=== PATIENT | female | born 1970 | race Caucasian/White ===

== ENCOUNTER 2016-07-18 15:07 | Inpatient (IN) ==
[2016-07-18] MEDS ORDERED: NS 1,000 ML IV SCH (16:45)
[2016-07-18] MEDS ORDERED: REGLAN IV SCH (16:45)
[2016-07-18 17:07] LABS: MANUAL DIFF NEEDED? NO
[2016-07-18 17:27] LABS: BASO% 0.2 % (0.0-0.8); EOS# 0.05 X1000 (0.0-0.7); EOS% 0.4 % (0.0-10.0); IMM GRAN# 0.02 X1000 (0.0-0.04); IMM GRAN% 0.2 % (0.0-0.5); LYMPH# 2.93 X1000 (1.2-3.4); LYMPH% 22.7 % (20.5-51.1); MCH 28.7 PG (27-31); MCV 84.4 FL (81-99); MONO# 0.84 X1000 (0.11-0.59); MONO% 6.5 % (1.7-9.3); MPV 10.3 FL (7.4-10.4); PLT 387 X1000 (130-400); RBC 5.57 XMIL (4.2-5.4)
[2016-07-18 17:29] LABS: INR 1.1; PROTIME 11.6 Seconds (9.2-11.7)
[2016-07-18 17:37] LABS: HEMOGLOBIN A1C 9.6 % (4.8-6.0)
[2016-07-18 17:38] LABS: AGAP 16; ALBUMIN 4.3 g/dL (3.5-5.0); ALKALINE PHOSPHATASE 48 U/L (32-104); BUN 9 mg/dL (8-22); CHLORIDE 94 mmol/L (98-107); CK PROFILE 94 U/L (24-173); COSMO 269; GOT 15 U/L (10-30); GPT 17 U/L (10-36); MAGNESIUM 1.8 mg/dL (1.5-2.7); POTASSIUM 3.2 mmol/L (3.5-5.1); SODIUM 134 mmol/L (136-145); TCO2 24 mmol/L (25-35); TOTAL PROTEIN 7.9 g/dL (6.3-8.3)
[2016-07-18] MEDS: SODIUM CHLORIDE 0.9% INJ PRN (18:03)
[2016-07-18] MEDS: PHENERGAN IV PRN (18:03)
[2016-07-18] MEDS: SODIUM CHLORIDE 0.9% INJ SCH (18:03)
[2016-07-18] MEDS: PROTONIX IV SCH (18:03)
[2016-07-18] MEDS ORDERED: MAGNESIUM SULFATE 2 GM/S.W.I. 2 GM/50 ML IVPB IV ONE (18:30)
[2016-07-18 18:58] LABS: INR 1.09; PROTIME 11.5 Seconds (9.2-11.7)
[2016-07-18] MEDS: MORPHINE IV PRN (19:04)
--- NOTE | 2016-07-18 21:08 | HISTORY AND PHYSICAL ---
CHIEF COMPLAINT: Intractable nausea, vomiting, abdominal discomfort. 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 Basically was taken to [place] 2 days ago with intractable nausea, vomiting, upper abdominal pain. Initially, she thought she is getting a heart attack. Patient was admitted at [facility] by hospitalist and subsequently CT of the abdomen and pelvis was told negative. She was treated with Compazine, IV fluids, sent home yesterday. She failed to improve, came to our clinic with intractable nausea, vomiting, and Phenergan did not help. She was admitted directly from my office for impending dehydration. She has a poor IV access. If the IV is not suitable next 24 hours , will consult a PICC line. She was dehydrated, hypokalemia. She was started on IV Phenergan and IV fluids. The patient needs to rule out gastroparesis. As a result, a hospital admission was warranted. PAST MEDICAL HISTORY: 1. CAD status post bypass. 2. Type 2 diabetes. 3. Diabetic neuropathy. 4. Hyperlipidemia. 5. Hypertension. 6. Sleep apnea. 7. Peripheral vascular disease. PAST SURGICAL HISTORY: Pacemaker/AICD. Tonsillectomy. Bypass with 4 stents. Cholecystectomy. Uvulopalatopharyngoplasty. Tubal ligation. MEDICATIONS: Insulin pump. Coreg 25 p.o. b.i.d. Pletal 50 once daily Cymbalta 60 daily. Gabapentin 300 daily. Lipitor 80 mg daily. Losartan 100 mg daily. [place] for p.r.n. pain. Plavix 75 daily. Aldactone 25 p.o. b.i.d. Demadex 20, 3 times daily. ALLERGIES: Penicillin. Reglan. SOCIAL HISTORY: , 1 child. Lives in [place]. No smoking. No alcohol disabled. FAMILY HISTORY: Father of car accident at 36. Mother is alive with diabetes, hypertension, stroke. HEALTH MAINTENANCE: Flu vaccine 2015, pneumococcal vaccine 2011, mammography , Pap smear and 2013. Colonoscopy not indicated. REVIEW OF SYSTEMS: HEENT: No headache. No dizziness. No earache. No sore throat. Neck: No goiter. No lymphadenopathy. No bruit. Cardiopulmonary: No chest pain, shortness of breath, PND, orthopnea. GI: Intractable nausea, vomiting, upper abdominal pain. No altered bowel habits. No bleeding per rectum. : No history of hesitancy, frequency. Claudication symptoms in both legs due to significant femoral artery stenosis and no signs of gangrene and nonhealing ulcer. Left great toe seen by Dr. Calderon. No suspicious finding for osteomyelitis. Neurologic: No focal symptoms or weakness. PHYSICAL EXAMINATION: VITAL SIGNS: Afebrile, stable. 5 feet 11, 271 pounds. HEENT: Atraumatic, normocephalic. Pupils equal, reactive to light. Dry mucous membranes. NECK: Supple. No lymphadenopathy. No goiter. CHEST: Bilateral air entry. No rales, no wheezing. HEART: Sounds are tachycardic. ABDOMEN: Belly is soft, obese, nontender. Good bowel sounds. No masses palpable. No signs of peritonitis. EXTREMITIES: Decreased pulses. Decreased sensory exam. No obvious focal deficits noted. INVESTIGATIONS: CBC: White cell count 12, hematocrit 47, platelets 387,000. PT 11, INR 1. SMA7: Sodium 134, potassium 3.2, chloride 94, anion gap is normal. Glucose 131. A1c 9.6. Cardiac enzymes are normal. ProBNP 1200. Amylase is normal. CT scan of the abdomen and pelvis is negative at recent [facility]. ASSESSMENT AND PLAN: A 45-year-old white female, admitted to the hospital with intractable nausea, vomiting. Etiology to be determined. Rule out gastroparesis. Check the urine for toxicology screen. Hypokalemia, replace the potassium. Type 2 diabetes on insulin pump. Follow up on sliding scale. Nothing per oral except ice chips. Intravenous access problem, will consult PICC line. Gastrointestinal prophylaxis with intravenous Protonix. Deep venous thrombosis prophylaxis with subcutaneous Lovenox. Once her situation improves, we will slowly initiate her home medications, and we will follow up on the clinical course. cc: Bryon Rodrigues MD MTDD
[2016-07-18] MEDS: NS + KCL 40 MEQ 1,000 ML IV SCH (23:28)
[2016-07-18 23:53] LABS: UR AMPHETAMINES QUAL NONE DETECTED (NONE DETECT); UR BARBITUATES QUAL NONE DETECTED (NONE DETECT); UR BENZODIAZEPIN QUAL NONE DETECTED (NONE DETECT); UR CANNABINOIDS QUAL PRESUMPTIVE POSITIVE (NONE DETECT); UR COCAINE QUAL NONE DETECTED (NONE DETECT); UR METHADONE QUAL NONE DETECTED (NONE DETECT); UR OPIATES QUAL PRESUMPTIVE POSITIVE (NONE DETECT); UR OXYCODONE QUAL NONE DETECTED (NONE DETECT); UR PCP QUAL NONE DETECTED (NONE DETECT)
[2016-07-19] MEDS: MORPHINE IV PRN ×4 (00:23→20:07)
[2016-07-19] MEDS: PHENERGAN IV PRN ×3 (00:23→18:11)
[2016-07-19 07:30] LABS: MANUAL DIFF NEEDED? NO
[2016-07-19 07:40] LABS: BASO% 0.4 % (0.0-0.8); EOS# 0.14 X1000 (0.0-0.7); EOS% 1.2 % (0.0-10.0); HEMATOCRIT 42.8 % (37.0-47.0); HEMOGLOBIN 14.6 g/dL (12.0-16.0); IMM GRAN# 0.03 X1000 (0.0-0.04); IMM GRAN% 0.3 % (0.0-0.5); LYMPH# 3.25 X1000 (1.2-3.4); LYMPH% 27.7 % (20.5-51.1); MCH 29.7 PG (27-31); MCHC 34.1 g/dL (33-37); MONO# 0.95 X1000 (0.11-0.59); MONO% 8.1 % (1.7-9.3); MPV 10.4 FL (7.4-10.4); NEUT% 62.3 % (42.2-75.2); PLT 323 X1000 (130-400); RBC 4.92 XMIL (4.2-5.4)
[2016-07-19 08:11] LABS: AGAP 15; BUN 10 mg/dL (8-22); CALCIUM 8.8 mg/dL (8.8-10.2); CHLORIDE 99 mmol/L (98-107); CK PROFILE 71 U/L (24-173); COSMO 277; POTASSIUM 3.5 mmol/L (3.5-5.1); SODIUM 137 mmol/L (136-145); TCO2 23 mmol/L (25-35)
[2016-07-19 08:56] LABS: SED RATE 15 mm/hr (0-20)
--- NOTE | 2016-07-19 09:10 | PROGRESS NOTE ---
DATE: 07/19/2016 SUBJECTIVE: The patient still has upper abdominal pain, nausea, vomiting. Reviewed the reports from [place] at [facility]. The patient is going for gastric a emptying study. REVIEW OF SYSTEMS: None reported. No chest pain, shortness of breath. No swelling of legs. PHYSICAL EXAMINATION: Afebrile. Heart rate is 82. Blood pressure is 132/78, pulse oximetry 99% on room air. HEENT: Atraumatic, normocephalic. Pupils equal, react to light. Neck is supple. No lymphadenopathy. Chest is clear to auscultation. Heart sounds are regular. Belly is soft, obese. No signs of peritonitis. Extremities: No edema noted. INVESTIGATIONS: White cell count 11, hematocrit 42, platelets 303,000. SMA-7: Sodium 137, potassium 3.5, chloride 99. BUN is 10. Creatinine 0.8. Glucose 178. Magnesium 1.8. Calcium 8.8. Cardiac enzymes were normal. TSH is normal. Urine tox screen is positive for THC marijuana. Gastric emptying studies are pending. ASSESSMENT AND PLAN: 1. Intractable nausea, vomiting, rule out gastroparesis. Follow up on gastric emptying study. 2. Impending dehydration. IV fluids with potassium. 3. Gastrointestinal prophylaxis with IV Protonix. 4. Deep venous thrombosis prophylaxis with Lovenox. 5. History of marijuana in the urine toxic. 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 6. Type 2 diabetes, brittle, on insulin pump. Follow up on sliding scale with insulin coverage. We will slowly initiate clear liquid diet and reconcile home medicines and followup. cc: Bryon Rodrigues MD MTDD
[2016-07-19] MEDS ORDERED: NS 250 ML ONE (09:21)
[2016-07-19] MEDS: HUMULIN R SUBQ SCH ×5 (09:29→23:00)
--- NOTE | 2016-07-19 10:46 | Diag Imaging Result Document ---
PROCEDURE NAME: GASTRIC EMPTYING - 07/18/2016 NUCLEAR MEDICINE GASTRIC EMPTYING EXAM: PROCEDURE: 594 microcuries of Tc99m sulfur colloid ingested with oatmeal. Imaging for 2 hours performed. There is no appreciable emptying which occurs through 2 hours. IMPRESSION: Abnormal exam with marked delayed gastric emptying.
[2016-07-19] MEDS: LOVENOX SUBQ SCH (10:50)
[2016-07-19] MEDS: NS + KCL 40 MEQ 1,000 ML IV SCH ×2 (10:53→14:48)
[2016-07-19] MEDS: ZOFRAN IV PRN ×2 (12:11→20:07)
[2016-07-19] MEDS: COMPAZINE IV PRN (14:48)
[2016-07-19] MEDS: SODIUM CHLORIDE 0.9% INJ PRN ×2 (18:04→18:11)
[2016-07-19] MEDS: PROTONIX IV SCH (18:04)
[2016-07-19] MEDS ORDERED: APRESOLINE IV PRN (20:58)
[2016-07-19] MEDS ORDERED: DIFLUCAN 100 MG/NS 100 MG/50 ML IVPB IV SCH (21:00)
[2016-07-19] MEDS: DIFLUCAN 200 MG/NS 200 MG/100 ML IVPB IV SCH (22:38)
[2016-07-20] MEDS: NS + KCL 40 MEQ 1,000 ML IV SCH ×3 (04:19→17:23)
[2016-07-20] MEDS: MORPHINE IV PRN ×3 (04:19→17:29)
[2016-07-20] MEDS: COMPAZINE IV PRN ×3 (04:19→20:14)
[2016-07-20] MEDS: HUMULIN R SUBQ SCH ×4 (06:40→22:18)
[2016-07-20] MEDS: LOVENOX SUBQ SCH (08:12)
[2016-07-20] MEDS: PHENERGAN IV PRN ×2 (08:20→15:54)
[2016-07-20] MEDS: ZOFRAN IV PRN ×2 (10:50→17:29)
[2016-07-20] MEDS: MIRALAX PO SCH ×2 (11:06→20:05)
--- NOTE | 2016-07-20 12:17 | Diag Imaging Result Document ---
PROCEDURE NAME: ERNESTO ABDOMEN - 07/20/2016 ABDOMEN: COMPARISON: 10/12/2012. FINDINGS: There are stable cholecystectomy clips. No bowel obstruction or free air. IMPRESSION: Negative exam.
[2016-07-20] MEDS: PROTONIX IV SCH (17:23)
[2016-07-20] MEDS: SODIUM CHLORIDE 0.9% INJ SCH (17:23)
--- NOTE | 2016-07-20 19:58 | PROGRESS NOTE ---
DATE: 07/20/2016 SUBJECTIVE: Intractable nausea, vomiting last 24 hours. Patient continues to have dry heaves. She had 1 bowel movement. She was complaining of yeast infection in the vagina. Blood pressure is running high. Nausea is not improving. REVIEW OF SYSTEMS: HEENT: No headache. No vision problem. Neck: No goiter. No lymphadenopathy. Cardiopulmonary: No chest pain, shortness of breath, PND, orthopnea. GI: Intractable nausea, vomiting, had a BM. : No history of hesitancy, frequency. Some yeast infection in the vagina. No swelling of feet. PHYSICAL EXAMINATION: Vital Signs: She is afebrile. Vitals are stable. Blood pressure was 195/100 on room air 99%. HEENT: Atraumatic, normocephalic. Pupils equal, reactive to light. Neck: Supple. No lymphadenopathy. Chest: Clear to auscultation. Heart: Sounds are regular. Abdomen: Belly is soft, obese, nontender. Good bowel sounds. Extremities: No peripheral edema, cyanosis, clubbing. INVESTIGATIONS: Blood sugars running 215. Cardiac enzymes were normal. Urine toxic screen positive for marijuana. ASSESSMENT AND PLAN: 1. Status post peripherally inserted central line on the right side. 2. Intractable nausea and vomiting due to gastroparesis. Abnormal gastric emptying study. Consult with Dr. Meneses for possible esophagogastroduodenoscopy. KUB was negative. 3. Dehydration. Continue on IV fluids with potassium. 4. Diabetes. Continue on sliding scale. 5. Constipation. We will use the MiraLAX. 6. Hypertension. Not able to take her home medicines. Continue on hydralazine 10 mg IV q.6. 7. Vaginitis due to yeast. Consider Diflucan. We will discuss with Dr. Meneses and slowly initiate clear liquid diet. 8. Counseling about THC once her situation improves and patient denies any smoking. cc: Bryon Rodrigues MD
[2016-07-20] MEDS: DULCOLAX PR SCH (20:05)
[2016-07-20] MEDS: DIFLUCAN 200 MG/NS 200 MG/100 ML IVPB IV SCH (20:15)
--- NOTE | 2016-07-21 02:36 | CONSULTATION ---
DATE OF CONSULTATION: 07/20/2016 REQUESTING PHYSICIAN: Dr. Rodrigues. REASON FOR CONSULTATION: Intractable nausea, vomiting, and gastroparesis. HISTORY OF PRESENT ILLNESS: The patient is a 45 year old female who had a history of diabetes type 1. Since age 23, she had an insulin pump for many years. 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 She was admitted for 3 days there. She was given Compazine for nausea and vomiting which helped her a little bit, but her symptoms have completely resolved. She was discharged from [facility] but then she was admitted to Dr. Rodrigues in outpatient clinic. She was noted to have ongoing nausea, vomiting and inability to keep anything down and was dehydrated. We brought her to the [facility] for symptoms. She had a gastric emptying study done which showed evidence of severe gastroparesis and no appreciable emptying was noted during the 2 hours of the study. The patient denies any vomiting blood or passing blood in the stools. She also has a history of constipation. Her last movement this morning was a very small amount. PAST MEDICAL HISTORY: 1. Coronary artery disease status post bypass. 2. Type 2 diabetes, non-insulin dependent. 3. Diabetic neuropathy. 4. Hyperlipidemia. 5. Obesity. 6. Hypertension. 7. Sleep apnea. 8. Peripheral vascular disease. 9. Coronary stents. PAST SURGICAL HISTORY: 1. Pacemaker AICD. 2. Tonsillectomy. 3. Bypasses. 4. Stents. 5. Uvulopalatal pharyngoplasty for sleep apnea. 6. Tubal ligation. 7. Never had EGD or colonoscopy in the past. MEDICATIONS: At home include insulin pump, Coreg, Pletal, Cymbalta, gabapentin, Lipitor, losartan, [place], Plavix, Aldactone and Demadex. ALLERGIES: To penicillin. Reglan causes fluttering of the heart. SOCIAL HISTORY: . She has 1 child and very supportive at the bedside. Denies any smoking, alcohol or illicit drugs. She used to be a smoker before, but quit during the . She had 1 child but during the she developed dilated cardiomyopathy with ejection fraction of 11% per the patient. 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 FAMILY HISTORY: Father of car accident at age 36. Mother is alive. She has diabetes and hypertension. Sister also has diabetes. SYSTEM REVIEW: Denies any fevers, rigors, or chills. Denies any chest pain. Denies shortness of breath. Denies any coughing. Denies any new genitourinary complaints or neurological complaints. Denies any vomiting blood or black stools. She does complain of constipation. MEDICATIONS IN THE HOSPITAL: Include Dulcolax, fluconazole. Lovenox, hydralazine, sliding-scale Humulin insulin, morphine, normal saline with KCl 80 mL/h. Zofran, Protonix, MiraLAX, Compazine, and Phenergan. She is currently on a clear liquid diet. PHYSICAL EXAMINATION: Vital Signs: Temperature 98.1 degrees, pulse of 92, respiratory of 20, blood pressure 132/73 saturating 98% on room air. Body weight of 271 pounds and 3.2 ounces. BMI of 37 kg/m2 General: Patient is obese, lying in bed in no acute distress. HEENT: No pallor. No icterus. Pupils equal, react to light. Neck: Neck is supple. Chest: Decreased Breath sounds at the bases; CVS: tachycardic at times. Abdomen: Obese, discomfort in epigastrium. No rebound or guarding. Bowel sounds are present but hypoactive. Liver and spleen could not be felt because of body habitus. She has a large lower abdominal/pelvic wall hernia. Extremities : No cyanosis or clubbing. Neurologic: She is alert, awake, and oriented times 3. LABORATORY: Hemoglobin and hematocrit is 14.2, hematocrit of 42.8, white count of 11.73 and platelet count of 323,000. Sodium of 137, potassium 3.5, chloride 99, bicarb 23 , anion gap of 15, BUN of 10, creatinine 0.8, glucose 138, calcium is 8.8. AST 15, ALT 17, alkaline phosphatase 48, total protein 7.9, albumin of 4.3, HB A1c of 9.6. Urine toxicology screen positive for opioids and cannabinoids. INR 1.09. There is gastric emptying study showing no appreciable emptying at 2 hours suggesting gastroparesis. She has aorta with runoff. CTA done on 2016 which showed atheromatous changes with calcification along the abdominal aorta and bilateral common and external iliac arteries. Mild stenosis of the mid portion of the right external iliac artery. 1. Occlusion of the bilateral superficial femoral artery to the proximal thighs. Reconstitution of the bilateral superficial femoral arteries at the distal thighs. 2. Calcified atherosclerotic plaque with varying degrees of stenosis at the right popliteal artery. Left popliteal artery trifurcation and along the bilateral lower leg runoff arteries. There is a large fat containing anterior pelvic wall hernia which arises midline. IMPRESSION AND PLAN: 1. Severe gastroparesis. 2. Diabetes insulin dependent, with poor diabetes control. 3. Obesity. 4. Constipation. 5. Large abdominal wall hernia. 6. Congestive heart failure with EF 11% (per patient) 7. Status post CABG and coronary stents, 4 stents. 8. Intractable nausea and vomiting. RECOMMENDATIONS: The patient is intolerant to Reglan and causes cardiac arrhythmias so we will hold off on using any Reglan. We will start on clear liquid diet and keep her on Protonix once daily. We will start her on MiraLAX 17 g p.o. b.i.d., and also Dulcolax 20 mg at bedtime. We will avoid the use of excessive antiemetics which can paralyze the stomach and reduce gastric emptying. Patient was also recommended to improve her mobility, so as to help with the gastroparesis. The patient may benefit from gastric pacemaker which can be considered in a specialized facility likely at [facility] or [place]. In that regard, the patient will need to be referred as an outpatient. The patient was encouraged to keep a good control of diabetes. We will check a KUB today if she develops any kind of fecal impaction. Because of the patient's severe cardiomyopathy and coronary status, we will defer doing any kind of endoscopic intervention at this time. Discussed the above plan of care with the patient and the and all questions were answered. cc: MD Bryon Walker MD MTDD
[2016-07-21] MEDS: COMPAZINE IV PRN (04:19)
[2016-07-21] MEDS: HUMULIN R SUBQ SCH ×4 (06:20→20:22)
[2016-07-21] MEDS: NS + KCL 40 MEQ 1,000 ML IV SCH ×2 (06:21→18:49)
[2016-07-21] MEDS: LOVENOX SUBQ SCH (08:27)
[2016-07-21] MEDS: MIRALAX PO SCH ×2 (08:27→20:14)
--- NOTE | 2016-07-21 09:40 | PROGRESS NOTE ---
DATE: 07/21/2016 SUBJECTIVE: She had intractable nausea and vomiting after eating brought yesterday. Complains of upper abdominal discomfort and anxiety. The patient was seen by Dr. Meneses. He ordered a KUB. He put off an EGD for the time being. REVIEW OF SYSTEMS: The rest of the review of systems, none reported. PHYSICAL EXAMINATION: Vital Signs: On examination, she is afebrile. Blood pressure went down yesterday 76/51, now is 150/90. Pulse oximetry 94% on room air. The input and output are positive 1.3 liters. HEENT: Atraumatic, normocephalic. Pupils equal, react to light. Neck: Supple. No lymphadenopathy. Chest: Clear to auscultation. Heart: Sounds are regular. Abdomen: Belly is soft, obese. No signs of peritonitis. Extremities: No peripheral edema, cyanosis, clubbing. INVESTIGATIONS: Her KUB is unremarkable. Cholecystectomy clips noted. ASSESSMENT AND PLAN: 1. Intractable nausea and vomiting due to gastroparesis. Slowly clear liquid diet. Unable to tolerate Reglan due to previous side effects. Continue on intravenous fluids with potassium and Zofran and Phenergan as needed. 2. Gastroesophageal reflux disease with acid reflux disease. On intravenous Protonix. 3. Deep vein thrombosis prophylaxis with Lovenox. 4. Type 2 diabetes. Follow up on sliding scale. 5. Hypertension. Hydralazine as needed. 6. We will see the response to clear liquids for the next 48 hours and slowly reconcile her home medications. We will discuss with Dr. Meneses about the plan. We discussed with the patient as well as the mother at bedside, and Dr. Gates is going to follow up. cc: Bryon Rodrigues MD
[2016-07-21] MEDS: ZOFRAN IV PRN ×2 (11:31→20:14)
[2016-07-21] MEDS: ATIVAN IV PRN ×2 (12:21→20:14)
[2016-07-21] MEDS: PROTONIX IV SCH (16:14)
[2016-07-21] MEDS: SODIUM CHLORIDE 0.9% INJ SCH (16:14)
[2016-07-21] MEDS: DULCOLAX PR SCH (20:14)
[2016-07-21] MEDS: DIFLUCAN 200 MG/NS 200 MG/100 ML IVPB IV SCH ×2 (20:15→20:41)
[2016-07-22] MEDS: HUMULIN R SUBQ SCH ×4 (06:17→21:03)
[2016-07-22] MEDS: NS + KCL 40 MEQ 1,000 ML IV SCH ×2 (08:08→21:04)
[2016-07-22] MEDS: ZOFRAN IV PRN (08:08)
[2016-07-22] MEDS: ATIVAN IV PRN ×3 (08:08→21:02)
[2016-07-22] MEDS: MIRALAX PO SCH ×2 (08:09→21:04)
[2016-07-22] MEDS: LOVENOX SUBQ SCH (08:09)
--- NOTE | 2016-07-22 12:35 | PROGRESS NOTE ---
DATE: 07/22/2016 SUBJECTIVE: The patient was able to tolerate some clear liquids this morning well for breakfast. She has not vomited, feeling some better in that regard, but still feels some mild abdominal discomfort diffusely. OBJECTIVE: Afebrile. Pulse 100. Blood pressure 141/64, respirations 20, O2 on room air 99% to 100%. CV: RRR. Lungs: CTA. Abdomen: Protuberant and obesity noted. Active bowel sounds. No pinpoint tenderness. Extremities: No calf tenderness, cords, or edema. Neurologic: Nonfocal. Cranial nerves are intact. ASSESSMENT: 1. Gastroparesis. 2. Gastroesophageal reflux disease. 3. Type 2 diabetes mellitus. 4. Hypertension. PLAN: Continue present medications, IV fluids, continue the clear liquids and advanced slowly as we can over the next 48 hours. Continue prophylaxis for DVT with Lovenox. Continue to monitor her blood sugar acceptable being less than 212 at this point on SSI. cc: MD Bryon Harrison MD
[2016-07-22] MEDS: PROTONIX IV SCH (17:04)
[2016-07-22] MEDS: SODIUM CHLORIDE 0.9% INJ SCH (17:05)
[2016-07-22] MEDS: DIFLUCAN 200 MG/NS 200 MG/100 ML IVPB IV SCH (21:04)
[2016-07-22] MEDS: DULCOLAX PR SCH (21:09)
[2016-07-22] MEDS: COMPAZINE IV PRN (21:13)
[2016-07-23] MEDS: MORPHINE IV PRN ×2 (06:36→23:02)
[2016-07-23] MEDS: HUMULIN R SUBQ SCH ×4 (06:36→21:49)
[2016-07-23] MEDS: ZOFRAN IV PRN (06:36)
--- NOTE | 2016-07-23 09:08 | PROGRESS NOTE ---
DATE: 07/23/2016 SUBJECTIVE: The patient complains of some low back pain and bilateral leg pain. She thinks it is related to laying in bed a lot. She is sitting up in a chair. Still has some queasiness to her stomach but tolerating the clear liquids okay. She is not ready to advance up on her diet, she thinks. OBJECTIVE: Vital Signs: Afebrile, pulse 87, respirations 20, blood pressure 125/70, O2 saturation 99-100% on room air. CV: RRR without murmur. Lungs: CTA. Abdomen: Obese, protuberant. Active bowel sounds. Minimal tenderness in the epigastrium. Extremities: No calf tenderness, cords, or edema. Laboratory Data: Blood sugars ranging primarily 178-288. Insulin pump was off. The patient is on SSI. Note made of positive urine drug screen for opiates and cannabinoids. ASSESSMENT: 1. Nausea and vomiting, thought related to gastroparesis. I wonder if she might have some nausea associated with the use of marijuana. 2. Gastroesophageal reflux disease. 3. Type 2 diabetes mellitus. 4. Hypertension. 5. Morbid obesity. PLAN: Increase SSI slightly. Continue clear liquids at her request. Continue IVF. Prophylaxis of DVT with Lovenox and continue PPI intravenously. cc: MD Bryon Harrison MD
[2016-07-23] MEDS: MIRALAX PO SCH ×2 (09:27→21:48)
[2016-07-23] MEDS: LOVENOX SUBQ SCH (09:30)
[2016-07-23] MEDS: POTASSIUM CHLORIDE 20 MEQ in NS 1,000 ML IV SCH ×2 (10:08→23:02)
[2016-07-23] MEDS: BENADRYL IV PRN ×3 (10:08→23:01)
[2016-07-23] MEDS: PROTONIX IV SCH (17:07)
[2016-07-23] MEDS: DIFLUCAN 200 MG/NS 200 MG/100 ML IVPB IV SCH (21:50)
[2016-07-23] MEDS: DULCOLAX PR SCH (21:50)
[2016-07-24] MEDS: HUMULIN R SUBQ SCH ×3 (06:31→16:25)
[2016-07-24 07:16] LABS: AGAP 14; BUN 10 mg/dL (8-22); CALCIUM 9.2 mg/dL (8.8-10.2); CHLORIDE 101 mmol/L (98-107); COSMO 275; POTASSIUM 4.2 mmol/L (3.5-5.1); SODIUM 135 mmol/L (136-145); TCO2 20 mmol/L (25-35)
[2016-07-24] MEDS: MIRALAX PO SCH ×2 (08:16→21:38)
[2016-07-24] MEDS: LOVENOX SUBQ SCH (08:18)
[2016-07-24] MEDS: ATIVAN IV PRN ×2 (11:40→17:43)
[2016-07-24] MEDS: BENADRYL IV PRN (13:13)
--- NOTE | 2016-07-24 13:17 | PROGRESS NOTE ---
DATE: 07/24/2016 SUBJECTIVE: The patient is resting in bed. Her mother is at the bedside. She complains of abdominal discomfort and nausea, and she is able to keep liquids down. She denies any vomiting blood or passing blood in the stools. She had one bowel movement last night. She denies any fevers, rigors, chills. OBJECTIVE: Vital signs: Temperature 97.6, pulse rate of 78, respiratory rate 18, blood pressure 111/60, saturating 98% on room air. General: She is morbidly obese, lying in bed, in no acute distress. HEENT: Mild pallor. No icterus. Neck is supple. Abdomen is obese , soft, nontender, nondistended. Bowel sounds normal. No guarding or rebound. Extremities: No cyanosis, clubbing. Neurologic: She is alert, awake, oriented. LABORATORY DATA: Her sodium is 139, potassium 4.2, chloride 101, bicarb 29, Anion Gap 14, BUN of 10, creatinine 1.2. Glucose of 208. Calcium is 9.2. Urine toxicology positive for opioids and cannabinoids. IMPRESSION AND PLAN: 1. Severe gastroparesis. The patient will be on small frequent meals, about 4-6 times daily. Will keep a good control of diabetes per the primary team. She is already on insulin pump. She needs to improve her HB A1c Number should be less than 7. She is not a candidate for Reglan because of intolerance and cardiomyopathy. We will request Dr. Rodrigues to refer her to a [facility] or [facility] to evaluate for gastric pacemaker. 2. [id number] with poor diabetic control, on insulin pump being managed by the primary team. 3. Morbid obesity. The patient encouraged to loose weight. 4. Constipation. We will start on MiraLAX twice daily and Dulcolax 20 mg at bedtime. 5. Large abdominal wall mass/probable hernia. The patient continues to lose weight and, if her cardiac status improves, she could seek surgical consultation to help with that. 6. Discussed with Dr. Rodrigues by phone and Patient will be scheduled for EGD tomorrow in order to evaluate for gastric outlet obstruction with Dr. Burrell. Risks, benefits indications and alternatives discussed with the patient and family and all questions were answered. The above plan of care was discussed with the patient and family at bedside. cc: MD Bryon Walker MD MTDD
[2016-07-24] MEDS: POTASSIUM CHLORIDE 20 MEQ in NS 1,000 ML IV SCH (14:54)
[2016-07-24] MEDS: SODIUM CHLORIDE 0.9% INJ SCH (16:26)
[2016-07-24] MEDS: PROTONIX IV SCH (16:26)
--- NOTE | 2016-07-24 19:01 | PROGRESS NOTE ---
DATE: 07/24/2016 SUBJECTIVE: The patient has been on clear liquid diet and no significant nausea or vomiting. The patient is tolerating the liquids. Dr. Meneses has seen and the patient has been scheduled for esophagogastroduodenoscopy tomorrow. The patient has been reluctant for having done here. She wants to go for a second opinion at [place]. In the meantime, she has a PICC line on the right side. She has not started on home medicines and no abdominal pain. REVIEW OF SYSTEMS: No chest pain or shortness of breath. PHYSICAL EXAMINATION: Vital Signs: Vitals are stable. Temperature is 97 degrees, pulse is 79, respirations 18, blood pressure is 134/60. HEENT Examination: Within normal limits. Neck: Supple. No lymphadenopathy. No goiter. Chest: Bilateral air entry. No rales , no wheezing. Heart: Sounds are regular. No murmur. Abdomen: Belly is soft, nontender. Good bowel sounds. No masses palpable. Extremities: No peripheral edema or cyanosis. Neurological Examination: No obvious neurological deficits. INVESTIGATIONS: SMA-7: Sodium 135, potassium 4.2, chloride 100, CO2 20. BUN 10, creatinine 0.8. Glucose 208. Calcium 9.2. Urine toxicology screen reported to the patient. ASSESSMENT AND PLAN: 1. Gastroparesis syndrome, on liquid diet. This could be multifactorial. Also discussed with the patient's mother about chronic hyperemesis cannabis syndrome, as she has been smoking marijuana. Possible esophagogastroduodenoscopy if she is willing to have it done here and also not able to tolerate Reglan. Consider erythromycin 250 q.i.d. Continue on full liquid diet and see how she does. 2. Status post PICC line on the right side. 3. Restart the home medications and if she tolerates well, probably she needs to go to [facility] for second opinion. 4. Continue with deep venous thrombosis and gastrointestinal prophylaxis with Lovenox and IV PPI. Documentation time 35 minutes. cc: Bryon Rodrigues MD MTDD
[2016-07-24] MEDS ORDERED: LIPITOR PO SCH (21:00)
[2016-07-24] MEDS: DIFLUCAN 200 MG/NS 200 MG/100 ML IVPB IV SCH (21:38)
[2016-07-24] MEDS: XANAX XR PO SCH (21:38)
[2016-07-24] MEDS: ERYTHROCIN PO SCH (21:39)
[2016-07-24] MEDS: DULCOLAX PR SCH (21:39)
[2016-07-24] MEDS: COREG PO SCH (21:39)
[2016-07-25] MEDS: POTASSIUM CHLORIDE 20 MEQ in NS 1,000 ML IV SCH (05:17)
[2016-07-25] MEDS: HUMULIN R SUBQ SCH ×3 (07:32→12:16)
[2016-07-25 08:15] VITALS: BP 145/75
[2016-07-25] MEDS: MIRALAX PO SCH (08:18)
[2016-07-25] MEDS: ERYTHROCIN PO SCH (08:19)
[2016-07-25] MEDS: LOVENOX SUBQ SCH (08:20)
[2016-07-25] MEDS: COREG PO SCH (08:20)
[2016-07-25] MEDS: XANAX XR PO SCH (08:24)
[2016-07-25] MEDS ORDERED: COZAAR PO SCH (09:00)
[2016-07-25] MEDS ORDERED: IMDUR PO SCH (09:00)
[2016-07-25] MEDS ORDERED: NEURONTIN PO SCH (09:00)
--- NOTE | 2016-07-25 22:15 | DISCHARGE SUMMARY ---
ADMISSION DATE: 07/18/2016 DISCHARGE DATE: 07/25/2016 DISCHARGING DIAGNOSES: Intractable nausea, vomiting due to multifactorial: 1. Gastroparesis. 2. Marijuana. 3. Pain medications with the hydrocodone. SECONDARY DIAGNOSES: 1. CAD with status post bypass. 2. Complicated diabetes with neuropathy. 3. Hyperlipidemia. 4. Hypertension. 5. History of sleep apnea. 6. Peripheral vascular disease. 7. Chronic anxiety. CONSULTANTS: Dr. Meneses. PROCEDURES: 1. Gastric emptying study, findings are markedly delayed gastric emptying. 2. KUB, no constipation. BRIEF HISTORY: Please see the H and P that was done on 07/18/2016. In brief, she is a 45-year-old white female, recently discharged from [facility], for intractable nausea, vomiting. Patient had a CT scan of the abdomen and pelvis done, which was unremarkable. She was sent home. She was readmitted for the same thing, intractable nausea, vomiting, and dehydration. HOSPITAL COURSE: She had a poor IV access. A PICC line was placed on the right side. She was given IV fluids and the replaced electrolytes. She is not able to tolerate Reglan, due to previous cardiac arrhythmias. She was given Zofran, Compazine and Phenergan. Urine toxic screen was positive for marijuana. Gastric emptying studies were abnormal. She is on full liquid diet. I did explain that the gastroparesis is multifactorial, this could be from the diabetic gastroparesis, and we do not have a lot of medications or prokinetic agents other than Domperidone. KUB was negative for constipation. Dr. Meneses was consulted. He did explain the EGD was high risk in light of her underlying cardiac disease. He referred a 2nd opinion, either [facility] or [place] for possible gastric pacemaker. Home medicines were restarted. Patient has been on insulin pump. LABS: SMA 7: Sodium 135, potassium 4.2, chloride 101, BUN 10, creatinine 0.8, glucose 182. CBC: White cell count 11, hematocrit 42, platelets 323,000. Urine toxic screen was positive for opiates and marijuana. The patient was adamant to go home. She wants to continue on the liquid diet with Glucerna, and I just kept her PICC line for the next few weeks. She will go to [facility] for Gastroenterology Division. DISCHARGE MEDICATIONS: As follows: Isosorbide 60 mg daily, losartan 100 daily, gabapentin 300 daily, azithromycin 250 q.6, Coreg 25 p.o. b.i.d., Lipitor 80 mg daily, Xanax 0.5 p.o. b.i.d., IV insulin pump, Phenergan for nausea. DISCHARGE INSTRUCTIONS: Stay away from narcotics and marijuana. PICC line on the right side. Outpatient home health care. We will make a referral to [facility], in light of her extensive medical problems, and follow up as an outpatient. cc: Bryon Rodrigues MD
== END 2016-07-25 13:59 | disposition home health service (06) ==
LOC: DIRADM 15:07 → 3N 16:30
PROVIDERS: ADMIT Internal Medicine; ATTEND Internal Medicine

== ENCOUNTER 2018-06-17 10:00 | Inpatient (IN) ==
[2018-06-17] MEDS ORDERED: NS 1,000 ML IV ONE (10:14)
[2018-06-17] MEDS ORDERED: ZOFRAN IV ONE (10:14)
[2018-06-17] MEDS ORDERED: TORADOL IV ONE (10:24)
[2018-06-17 11:38] LABS: BASO# 0.05 X1000 (0.0-0.2); BASO% 0.4 % (0.0-0.8); EOS# 0.14 X1000 (0.0-0.7); HEMATOCRIT 34.3 % (37.0-47.0); HEMOGLOBIN 10.1 g/dL (12.0-16.0); IMM GRAN# 0.03 X1000 (0.0-0.04); IMM GRAN% 0.2 % (0.0-0.5); LYMPH# 1.81 X1000 (1.2-3.4); LYMPH% 13.3 % (20.5-51.1); MCH 20.2 PG (27-31); MCHC 29.4 g/dL (33-37); MCV 68.6 FL (81-99); MONO# 0.46 X1000 (0.11-0.59); MONO% 3.4 % (1.7-9.3); MPV 11.2 FL (7.4-10.4); NEUT# 11.16 X1000 (1.4-6.5); NEUT% 81.7 % (42.2-75.2); PLT 363 X1000 (130-400); WBC 13.65 X1000 (4.8-10.8)
[2018-06-17 11:41] LABS: URINE SOURCE CLEAN CATCH
[2018-06-17 11:46] LABS: BILIRUBIN URINE NEGATIVE (NEGATIVE); BLOOD URINE NEGATIVE (NEGATIVE); COLOR STRAW; GLUCOSE URINE 300 mg/dL (NEGATIVE); KETONE URINE NEGATIVE (NEGATIVE); LEUKOCYTES URINE NEGATIVE (NEGATIVE); NITRITE URINE NEGATIVE (NEGATIVE); PH URINE 7.5; PROTEIN URINE NEGATIVE (NEGATIVE); SP GRAVITY URINE 1.005; TURBIDITY URINE CLEAR (CLEAR); UR EPITHELIAL CELLS <10 /HPF (<10); URINE BACTERIA NEGATIVE /HPF; URINE RBC <10 /HPF (<10); URINE WBC <10 /HPF (<10); UROBILINOGEN URINE NORMAL (NORMAL)
[2018-06-17 11:53] LABS: BANDS 2 % (0-1); LYMPHS 12 % (21-51); SEGS 86 % (42-75)
[2018-06-17 11:54] LABS: ANISOCYTOSIS 1+; HYPOCHROM 1+; MICROCYTOSIS 2+
[2018-06-17 11:57] LABS: UR AMPHETAMINES QUAL NONE DETECTED (NONE DETECT); UR BARBITUATES QUAL NONE DETECTED (NONE DETECT); UR BENZODIAZEPIN QUAL NONE DETECTED (NONE DETECT); UR CANNABINOIDS QUAL PRESUMPTIVE POSITIVE (NONE DETECT); UR COCAINE QUAL NONE DETECTED (NONE DETECT); UR METHADONE QUAL NONE DETECTED (NONE DETECT); UR OPIATES QUAL NONE DETECTED (NONE DETECT); UR OXYCODONE QUAL NONE DETECTED (NONE DETECT); UR PCP QUAL NONE DETECTED (NONE DETECT)
[2018-06-17 11:58] LABS: AGAP 12; ALB/GLOB RATIO 1.4; ALBUMIN 4.2 g/dL (3.5-5.0); ALKALINE PHOSPHATASE 79 U/L (32-104); BUN 8 mg/dL (8-22); CALCIUM 9.5 mg/dL (8.8-10.2); CHLORIDE 101 mmol/L (98-107); COSMO 275; CREATININE 0.7 mg/dL (0.5-0.9); ESTIMATED GFR > 60; GLUCOSE 179 mg/dL (70-104); GOT 13 U/L (10-30); GPT 10 U/L (10-36); LIPASE 8 U/L (13-60); SODIUM 136 mmol/L (136-145); TCO2 23 mmol/L (25-35); TOTAL BILIRUBIN 0.57 mg/dL (0.20-1.00); TOTAL PROTEIN 7.3 g/dL (6.3-8.3)
[2018-06-17] MEDS ORDERED: SODIUM CHLORIDE 0.9% INJ ONE (12:03)
[2018-06-17] MEDS ORDERED: PHENERGAN IV ONE (12:03)
[2018-06-17] MEDS ORDERED: MORPHINE IV ONE (12:03)
[2018-06-17] MEDS ORDERED: ALDACTONE PO ONE ×2 (13:05→18:30)
[2018-06-17] MEDS ORDERED: CATAPRES PO ONE (13:05)
--- NOTE | 2018-06-17 13:22 | Diag Imaging Result Doc PS360 ---
EXAM: CHEST-2 VIEWS 06/17/2018 HISTORY: sob TECHNIQUE: PA and lateral chest COMMENT: The inspiration is less optimal than on 11/26/2017 and there is more opacity in the lung bases particularly laterally over the right base where there is obscuration of the hemidiaphragm. IMPRESSION: Pulmonary edema versus pneumonia. Electronically signed by Kolby Elizondo 06/17/2018 1:20 PM
[2018-06-17] MEDS ORDERED: LASIX IV ONE ×2 (13:24→19:19)
[2018-06-17] MEDS ORDERED: ROCEPHIN 1 GM in NS 50 ML IV ONE ×2 (13:31→21:00)
--- NOTE | 2018-06-17 13:39 | PROVIDER DOCUMENTATION ---
This chart was entered by Noemi Clement Scribe, acting as scribe for Cabrera Kessler CRNP. HPI-Abdominal Pain/GI Problem - General Chief Complaint: Abdominal Pain Stated Complaint: GASTROPERESIS Time Seen by Provider: 06/17/18 10:14 Source: patient Allergies/Adverse Reactions: Patient Allergies Allergy/AdvReac Type Severity Reaction Status Date / Time metoclopramide HCl * Allergy Severe ANAPHYLAXIS Verified 03/19/18 07:54 [From Reglan] Penicillins Allergy Intermediate RASH Verified 03/19/18 07:54 Home Medications: Home Medication List Medication Instructions Recorded Confirmed Last Taken Type Alprazolam 0.25 mg PO BID 11/25/17 04/28/18 03/18/18 History Aspirin 325 mg PO DAILY 11/25/17 04/28/18 03/15/18 History Atorvastatin Calcium [Lipitor] 1 tab PO HS 11/25/17 04/28/18 03/18/18 History Carvedilol 25 mg PO BID 11/25/17 04/28/18 03/18/18 History Clopidogrel Bisulfate [Plavix] 75 mg PO DAILY 11/25/17 04/28/18 03/16/18 History Isosorbide Mononitrate E.r. [Imdur] 60 mg PO DAILY 11/25/17 04/28/18 03/16/18 History Pantoprazole Sodium [Protonix] 40 mg PO DAILY 11/25/17 04/28/18 03/16/18 History Prochlorperazine [Compazine] 10 mg PO Q6H PRN 11/25/17 04/28/18 11/24/17 History Spironolactone 1 tab PO BID 11/25/17 04/28/18 03/18/18 History Subcutaneous Insulin Pump [Insulin 1 each MC DIRECTED 11/25/17 04/28/1803/19 History Pump] Sucralfate 1 tab PO TID 11/25/17 04/28/18 03/18/18 History Torsemide 1 - 2 tab PO BID 11/25/17 04/28/18 03/16/18 History Duloxetine [Cymbalta] 60 mg PO DAILY capsule 11/29/17 04/28/18 03/16/18 Rx Linaclotide [Linzess] 145 mcg PO DAILY 02/01/18 04/28/18 03/16/18 History Polyethylene Glycol 3350 [Miralax] 17 gm PO BID 02/01/18 04/28/18 03/18/18 History Sennosides/Docusate Sodium 1 each PO BID 02/01/18 04/28/18 03/16/18 History [Senna-S Laxative Tablet] Pregabalin [Lyrica] 75 mg PO BID 03/19/18 04/28/18 03/16/18 History Ondansetron Odt [Zofran 4 mg Odt] 4 mg PO Q6H PRN PRN #30 tab 04/30/18 Unknown Rx - History of Present Illness-ABD Nature of Presenting Problems: Patient is a 47 year old female who presents to the ED with generalized abdominal pain. Patient states nausea and vomiting. Patient states symptoms started yesterday. Patient states history of gastroparesis and was recently admitted to [place] for gastroparesis. Abdominal Pain Onset Location: reports: generalized abdomen Pain Radiation: reports: no radiation Quality of Pain: reports: aching Severity in ED: reports: mild Onset/Duration: reports: 24 hours ago Timing: reports: still present, getting worse Activities at Onset: reports: light activity Modifying Factors: improves with: nothing Associated Symptoms: reports: nausea, vomiting Last BM: unsure Bruising or Bleeding Gums?: No Similar Symptoms Previously?: Yes Recently seen or treated by another doctor?: Yes Review of Systems - Adult - REVIEW OF SYSTEMS - ADULT Constitutional: reports: no symptoms reported Eyes: reports: no symptoms reported Ears, Nose, Mouth & Throat: reports: no symptoms reported Cardiovascular: reports: no symptoms reported Respiratory: reports: no symptoms reported Gastrointestinal: reports: abdominal pain (generalized), nausea, vomiting. denies: diarrhea Genitourinary: reports: no symptoms reported Musculoskeletal: reports: no symptoms reported Integumentary: reports: no symptoms reported Neurological: reports: no symptoms reported Psychiatric: reports: no symptoms reported Endocrine: reports: no symptoms reported Hematologic/Lymphatic: reports: no symptoms reported Allergic/Immunologic: reports: no symptoms reported All Other Systems: Reviewed and Negative Past History - Adult - PAST MEDICAL HISTORY-ADULT Review of Records: reports: Nursing Assessment Review, Medications Reviewed, Social history reviewed & non-contributory. Major Childhood Illnesses: reports: denies history Cardiovascular: reports: CAD, HTN, hyperlipidemia, ND, pacemaker (defibrillator) . denies: CHF Respiratory: reports: denies history Gastrointestinal: reports: other (gastroperesis) Obstetrical/Gynecological: reports: other (ovarian cancer) Genitourinary: reports: denies history Musculoskeletal: reports: denies history Neurological: reports: denies history Psychiatric: reports: depression Endocrine/Immune: reports: Diabetes Other Conditions: reports: denies history - PRIOR SURGERIES/PROCEDURES Surgical/Procedure History: reports: CABG, cholecystectomy, pacemaker, BTL, C- section, tonsillectomy, other (LBKA) - IMMUNIZATION STATUS Childhood Immunizations: See Nurse Assessment Flu Vaccine: See Nurse Assessment - FAMILY HISTORY Family History: reviewed, not pertinent - SOCIAL HISTORY Smoking: cigarettes (former) Substance Use: denies Physical Exam-General - PHYSICAL EXAM-ADULT Initial Vital Signs Reviewed: Yes - CONSTITUTIONAL General Appearance: alert, no apparent distress - HEAD, EARS, NOSE, MOUTH & THROAT HENMT: normal ENT inspection - RESPIRATORY Respiratory: chest non-tender, lungs clear, normal breath sounds - CARDIOVASCULAR Cardiovascular: normal peripheral pulses, regular rate, rhythm - GASTROINTESTINAL (ABDOMEN) Abdominal Exam: normal bowel sounds, soft, tenderness (diffuse) - MUSCULOSKELETAL Extremity: non-tender, other (left BKA) - SKIN Integumentary: normal color, normal turgor, warm/dry - NEUROLOGIC Neurologic: grossly normal - PSYCHIATRIC Psych/Mental Status: normal mood/affect, oriented x 3 Progress - PLAN OF CARE/RESULTS Progress/Plan/Lab Results: Vital Signs - 8 hr 06/17/18 10:10 Temperature 97.6 F Pulse Rate 78 Respiratory Rate 18 Blood Pressure 166/94 O2 Sat by Pulse Oximetry 99 Orders Category Date Time Status CBC WITH DIFF [HEME] Stat Lab 06/17/18 10:14 Uncollected COMPREHENSIVE METABOLIC PANEL [CHEM] Stat Lab 06/17/18 10:14 Uncollected LIPASE [CHEM] Stat Lab 06/17/18 10:14 Uncollected URINALYSIS W/POSS RFLX CULT [URINALYSIS] Stat Lab 06/17/18 10:14 Uncollected URINE DRUG SCREEN Stat Lab 06/17/18 10:14 Uncollected 0.9% Sodium Chloride Inj [Ns] 1,000 ml Med 06/17/18 10:14 Active IV 999 mls/hr Ketorolac [Toradol] Med 06/17/18 10:24 Discontinued 30 mg IV NOW ONE Ondansetron [Zofran] Med 06/17/18 10:14 Discontinued 4 mg IV NOW ONE Result Diagrams: 06/17/18 11:18 06/17/18 11:18 - REASSESSMENT Reassessment #1 Time Reassessed: 12:03 (Pt states she is still having abd pain and vomiting. Pt has vomited once since arrival. Additional orders place. Pt has long history of gastroparesis and cannabis use. Will attempt to get pt's nv and abd pain under control and dc home if possible.) Reassessment #2 Time Reassessed: 13:06 (No vomiting since last assessment. Pt now on O2 3L with a sat of 90%. Pt states she wears CPAP at night and was requiring O2 during admission to . Pt also reports she has not had her BP meds. 228/110. Will order CXR, BP meds, and reevaluate.) Reassessment #3 Time Reassessed: 13:26 (Reviewed CXR with Dr Jorge who agrees suggests more CHF vs pneumonia. Lung sounds diminished on auscultation. Reviewed results and plan for admission with pt. Pt agrees with plan.) - XRAY 1 XRAY: Bilateral XRAY Study: Chest Impression: See EMR Report (The inspiration is less optimal than on 11/26/2017 and there is more opacity in the lung bases particularly laterally over the right base where there is obscuration of the hemidiaphragm. IMPRESSION: Pulmonary edema versus pneumonia. Electronically signed by Kolby Elizondo 06/17 1:20 PM) - CONSULTS/PCP/HOSPITALIST Notification #1 *Consult/PCP/Hospitalist*: Dr Rodrigues Time Discussed: 13:34 (requests rocephin and azithromycin) Consult Disposition: Admit Departure - Departure Date of Disposition Decision: 06/17/18 Time of Disposition Decision: 13:35 DIAGNOSIS: Gastroparesis, Marijuana abuse CHF (congestive heart failure) Qualifiers: Heart failure type: unspecified Heart failure chronicity: acute on chronic Qualified Code(s): I50.9 - Heart failure, unspecified HTN (hypertension) Qualifiers: Hypertension type: essential hypertension Qualified Code(s): I10 - Essential ( primary) hypertension Nausea & vomiting Qualifiers: Vomiting type: unspecified Vomiting Intractability: intractable Qualified Code( s): R11.2 - Nausea with vomiting, unspecified Disposition: ADMITTED INPATIENT 09 Certified Medical Emergency: Emergent Condition: Fair Referrals and Follow-Ups: Catie Rodrigues MD [Primary Care Provider] - - Critical Care Note This patient required my direct & personal management of CC.: No Attestation - Physician/ JANNET Attestation Patient care was provided by Advanced Practice Provider:: Yes Advanced Practice Provider:: Cabrera Kessler Advanced Practice Provider documentation review:: The Mid-level provider documentation, treatment plan and medical decision making was reviewed by the physician who agrees with all treatment and medical decision making by the MLP. The physician spent face to face time with patient:: No Advanced Practice Provider documentation review:: Supervising physician onsite and consulted in the evaluation and care of this patient. The physician did not have a face to face encounter with the patient. This chart was documented by the indicated scribe, (Noemi Clement Scribe) and accurately reflects the services I performed and decisions made by me, Cabrera Kessler, GISELE, as attested by the provider's signature.
[2018-06-17] MEDS: HUMULIN R SUBQ SCH (20:50)
[2018-06-17] MEDS: ZOFRAN IV PRN (20:52)
[2018-06-17] MEDS: PROTONIX IV SCH (20:59)
[2018-06-17] MEDS: ZITHROMAX 500 MG/NS 500 MG/250 ML IVPB IV SCH (21:47)
--- NOTE | 2018-06-18 01:55 | HISTORY AND PHYSICAL ---
CHIEF COMPLAINT: Shortness of breath this morning. Pulse oximetry 64 percent. HISTORY OF PRESENT ILLNESS: She is a 47-year-old white female, complicated historian. Basically, was admitted in [facility] for chest pain last . She went home on Sunday. I do not have the details. She was doing well on Sunday and Sunday. This morning, woke up with shortness of breath and nausea and vomiting. ProBNP slightly elevated. The patient was given oxygen, Lasix, that resulted in excellent diuresis. She continues to have chronic cannabis syndrome exacerbating her gastroparesis. I examined the patient on the floor, and she is breathing harder through the nose, but pulse oximetry 96 percent. Clinically, I did not find any signs of pneumonitis of rales. Continue IV Lasix to treat with decompensated congestive heart failure with systolic dysfunction. Also, needs attention on gastroparesis with Zofran. As a result, hospital admission was warranted. PAST MEDICAL HISTORY: 1. Coronary artery disease, status post bypass surgery. 2. Complicated diabetes, with neuropathy. 3. Gastroparesis. 4. Hyperlipidemia. 5. Hypertension. 6. Sleep apnea, on CPAP machine, with AHI 33 per hour. 7. Peripheral vascular disease. 8. Closed fracture of the cuboid bone on the right side. PAST SURGICAL HISTORY: Permanent pacemaker/AICD, tonsillectomy, bypass surgery in 2003 with 4 stents, cholecystectomy, peripheral angioplasty, tubal ligation, right and left femoral-popliteal bypass surgery, left toe amputation, subsequently left BKA after failed revision of left fem- popliteal bypass cadaveric graft. ALLERGIES: Reported to penicillin. MEDICATIONS: Insulin pump, CPAP machine, Xanax 0.25 p.o. b.i.d., aspirin 325 daily, Plavix 75 daily, Protonix 40 daily, Compazine 10 q.6 as needed, Aldactone 25 p.o. b.i.d., Carafate 1 g t.i.d., torsemide 20 mg 2 tablets b.i.d., Lipitor 80 daily, Imdur 60 daily, Cymbalta 60 daily, senna 1 tablet p.o. b.i.d., MiraLAX 17 g p.o. b.i.d., Linzess 145 mcg daily, Lyrica 75 p.o. b.i.d., Zofran. SOCIAL HISTORY: The patient has been . One son. Lives in [place]. No smoking. No alcohol. Substance abuse with cannabis. FAMILY HISTORY: Father of car accident at 36. Mother is a 61-year-old, with diabetes, hypertension, and stroke. HEALTH MAINTENANCE: Flu vaccine, 18. Pneumococcal vaccine, 2014. REVIEW OF SYSTEMS: HEENT: No headache. No vision problem. No earache. No sore throat. Neck: No goiter. No lymphadenopathy. No bruits. Cardiopulmonary: No chest pain, palpitations, shortness of breath, orthopnea. GI: Dry heaves, nausea, retching. No abdominal pain. : No history of hesitancy, frequency, dysuria. Extremities: No swelling of legs. Neurological: No weakness. No seizures. PHYSICAL EXAMINATION: VITAL SIGNS: Temperature is 98 degrees, pulse is 86, blood pressure 110/61, 5 feet 11, 254 pounds. HEENT: Atraumatic, normocephalic. Pupils equal, reactive to light. Not in respiratory distress. On oxygen. NECK: Supple. JVD is not elevated. CHEST: Clear. No crackles. HEART: Distant heart sounds. AICD on the left side. ABDOMEN: Belly is soft, nontender. Good bowel sounds. EXTREMITIES: Left below-knee amputation noted. No signs of gangrene on the right leg. LABORATORY DATA: CBC: White cell count 13, hematocrit 34, platelets 363,000. SMA-7: Sodium 136, potassium 4, chloride 101, BUN 8, creatinine 0.7, glucose 179. ProBNP 1300. LFTs were normal. Urinalysis is clear. Urine toxic positive for cannabinoids. Blood cultures are pending. Chest x-ray looks like CHF. AICD on the left side. ASSESSMENT AND PLAN: 1. A 47-year-old white female, complicated diabetes, with coronary artery disease, status post bypass surgery, status post automatic implanted cardioverter defibrillator, gastroparesis, neuropathy, peripheral arterial disease, came in with what looks like congestive heart failure. Continue IV Lasix, oxygen, and will get the reports from [facility]. 2. Diabetic gastroparesis. We will give Zofran. Diet NPO. IV Protonix. 3. Also, continue on IV Zithromax. NPO. Will repeat the chest x-ray and the labs in the morning. 4. Will slowly reconcile home medicines. cc: Bryon Rodrigues MD
[2018-06-18 04:27] LABS: ALLEN TEST YES; BE 4.8 mmoll (-3.0-3.0); BLOOD TYPE ARTERIAL; HCO3-(ACT) 28.7 mmoll (20.0-26.0); METHB 0.5 % (0.0-1.5); O2(CT) 12.2 mL/dL (15.0-23.0); O2HB 96.4 % (95.0-99.0); PCO2(98.6) 34 mmHg (35-45); PO2(98.6) 90 mmHg (60-100); SAMPLE BLOOD; SAO2 99.6 % (95.0-100.0); THB 8.9 g/dL (11.5-17.4); pH(98.6) 7.52 (7.35-7.45)
[2018-06-18 04:28] LABS: MODALITY CANNULA
[2018-06-18] MEDS: HUMULIN R SUBQ SCH ×4 (06:10→23:21)
[2018-06-18 07:56] LABS: BASO# 0.06 X1000 (0.0-0.2); BASO% 0.6 % (0.0-0.8); EOS# 0.17 X1000 (0.0-0.7); EOS% 1.6 % (0.0-10.0); HEMOGLOBIN 10.4 g/dL (12.0-16.0); LYMPH# 2.74 X1000 (1.2-3.4); LYMPH% 25.8 % (20.5-51.1); MCH 20.2 PG (27-31); MCHC 29.7 g/dL (33-37); MONO# 0.89 X1000 (0.11-0.59); MONO% 8.4 % (1.7-9.3); NEUT# 6.77 X1000 (1.4-6.5); NEUT% 63.6 % (42.2-75.2); PLT 384 X1000 (130-400); RBC 5.15 XMIL (4.2-5.4); RDW 19.4 % (11.5-14.5); WBC 10.63 X1000 (4.8-10.8)
[2018-06-18] MEDS: LASIX IV SCH ×2 (07:58→20:29)
[2018-06-18 08:09] LABS: AGAP 16; BUN 11 mg/dL (8-22); CALCIUM 8.8 mg/dL (8.8-10.2); CHLORIDE 96 mmol/L (98-107); CK PROFILE 50 U/L (24-173); COSMO 276; CREATININE 0.9 mg/dL (0.5-0.9); ESTIMATED GFR > 60; GLUCOSE 80 mg/dL (70-104); MAGNESIUM 1.6 mg/dL (1.5-2.7); POTASSIUM 2.8 mmol/L (3.5-5.1); SODIUM 139 mmol/L (136-145); TCO2 27 mmol/L (25-35)
--- NOTE | 2018-06-18 09:04 | Diag Imaging Result Doc PS360 ---
EXAM: CHEST-2 VIEWS - 06/18/2018 HISTORY: hypoxia TECHNIQUE: Chest two views COMPARISON: 06/17/2018 FINDINGS: Heart size appears within normal limits and decreased compared to prior. There are sternal wires from previous surgery and transvenous cardiac pacemaker again seen. There has been interval near resolution bilateral interstitial opacities, suggesting improved pulmonary edema. There is no dense consolidation, substantial pleural effusion, or pneumothorax identified. IMPRESSION: Interval near resolution of bilateral interstitial opacities, suggesting improved pulmonary edema. Electronically signed by Ravi Carrero 06/18/2018 9:02 AM
[2018-06-18] MEDS ORDERED: KLOR-CON PO ONE ×2 (09:43→16:30)
[2018-06-18] MEDS: POTASSIUM CHLORIDE 20 MEQ/SWI 20 MEQ/100 ML IVPB IV SCH ×2 (16:06→19:49)
[2018-06-18] MEDS ORDERED: NS 500 ML ONE (16:09)
--- NOTE | 2018-06-18 19:37 | PROGRESS NOTE ---
DATE: 06/18/2018 SUBJECTIVE: The patient is much better after diuresis. Follow up chest x-ray improving. She definitely had congestive heart failure. No pneumonia. SOB has improved. EXAMINATION: Vital Signs: Temp is 98, pulse is 86, blood pressure 106/53. HEENT: Exam within normal limits. Chest: Decreased crackles. Cardiovascular: Heart sounds are regular. Abdomen: Belly is soft, nontender. Extremities: Left below-knee amputation noted. Patient had significant diuresis last night. Unable to do the I's and O's due to not able to quantify. INVESTIGATIONS: CBC: White cell count 10, hematocrit 35, platelets 384,000. ABG: pH is 7.52, pCO2 34, PO2 90. SMA-7: Sodium 139, potassium 2.8 chloride 96. BUN 11, creatinine 0.9. Glucose 166. Cardiac enzymes were negative. ProBNP 2400. ASSESSMENT AND PLAN: 1. Shortness of breath due to congestive heart failure, systolic dysfunction with ischemic cardiomyopathy, IV Lasix, and then will change to the once a day in the morning. 2. Hypokalemia, replace the potassium. 3. Diabetic gastroparesis. Zofran and IV Zithromax. 4. Advance the diet from n.p.o. to clear liquids and slowly reconcile her home medicines and will follow up. LEVEL OF DOCUMENTATION: 25 minutes. cc: Bryon Rodrigues MD MTDD
[2018-06-18] MEDS: SODIUM CHLORIDE 0.9% INJ SCH (20:29)
[2018-06-18] MEDS: PROTONIX IV SCH (20:29)
[2018-06-19] MEDS: ZITHROMAX 500 MG/NS 500 MG/250 ML IVPB IV SCH ×2 (00:30→20:46)
[2018-06-19] MEDS: ZOFRAN IV PRN (05:30)
[2018-06-19] MEDS: HUMULIN R SUBQ SCH ×4 (06:00→20:42)
[2018-06-19 07:31] LABS: BASO# 0.09 X1000 (0.0-0.2); BASO% 0.9 % (0.0-0.8); EOS# 0.21 X1000 (0.0-0.7); EOS% 2.2 % (0.0-10.0); HEMOGLOBIN 9.9 g/dL (12.0-16.0); IMM GRAN# 0.02 X1000 (0.0-0.04); IMM GRAN% 0.2 % (0.0-0.5); LYMPH# 2.85 X1000 (1.2-3.4); LYMPH% 29.7 % (20.5-51.1); MCH 20.2 PG (27-31); MCHC 29.1 g/dL (33-37); MCV 69.5 FL (81-99); MONO% 8.3 % (1.7-9.3); MPV 10.7 FL (7.4-10.4); NEUT# 5.64 X1000 (1.4-6.5); NEUT% 58.7 % (42.2-75.2); PLT 352 X1000 (130-400); RBC 4.89 XMIL (4.2-5.4); RDW 19.5 % (11.5-14.5); WBC 9.61 X1000 (4.8-10.8)
[2018-06-19 07:47] LABS: AGAP 12; BUN 9 mg/dL (8-22); CALCIUM 8.9 mg/dL (8.8-10.2); CHLORIDE 100 mmol/L (98-107); COSMO 273; CREATININE 0.7 mg/dL (0.5-0.9); ESTIMATED GFR > 60; GLUCOSE 109 mg/dL (70-104); MAGNESIUM 1.9 mg/dL (1.5-2.7); PHOSPHORUS 3.6 mg/dL (2.7-4.5); POTASSIUM 3.8 mmol/L (3.5-5.1); SODIUM 137 mmol/L (136-145); TCO2 25 mmol/L (25-35)
[2018-06-19 07:58] LABS: EOS 3 % (1-10); LYMPHS 30 % (21-51); MONO 9 % (1-9); SEGS 55 % (42-75)
[2018-06-19 07:59] LABS: MICROCYTOSIS 1+; OVALOCYTES 1+; STOMATOCYTES OCCASIONAL
[2018-06-19] MEDS: LASIX IV SCH ×2 (08:57→20:43)
--- NOTE | 2018-06-19 19:53 | PROGRESS NOTE ---
DATE: 06/19/2018 SUBJECTIVE: The patient is a little better after diuresis, decreased nausea. OBJECTIVE: Vital signs: Temperature is 98 degrees, pulse is 92 blood pressure 133/82, 100% on room air. HEENT: Within normal limits. Neck: Supple. No lymphadenopathy. Chest: Bilateral air entry. Cardiovascular: Heart sounds are regular. Abdomen: Belly is soft, nontender. INVESTIGATIONS: CBC: White cell count 9.6, hematocrit 34, platelets 352,000. SMA7: Sodium 137, potassium 3.8, chloride 100, BUN is 9, creatinine 0.7, glucose 109. Cardiac enzymes were negative. ASSESSMENT AND PLAN: 1. Congestive heart failure due to underlying ischemic cardiomyopathy, systolic dysfunction. Awaiting the reports from [facility] for echo and continue IV Lasix and will decrease in the morning. 2. Diabetic gastroparesis exacerbating with chronic cannabis syndrome on IV Zithromax and Zofran. 3. Hypokalemia, better. 4. Advance the diet to clear liquids, see how she does over next 24 hours and slowly reconcile home medicines. 5. Status post below-knee amputation of the left leg, stable. LEVEL OF DOCUMENTATION: 25 minutes. cc: Bryon Rodrigues MD
[2018-06-19] MEDS: BENADRYL PO PRN (20:43)
[2018-06-19] MEDS: PROTONIX IV SCH (20:43)
[2018-06-20] MEDS: HUMULIN R SUBQ SCH ×4 (07:53→21:39)
[2018-06-20] MEDS: LASIX IV SCH ×2 (07:54→19:10)
[2018-06-20] MEDS: PROTONIX IV SCH (19:10)
[2018-06-20] MEDS: SODIUM CHLORIDE 0.9% INJ SCH (19:10)
--- NOTE | 2018-06-20 20:10 | PROGRESS NOTE ---
DATE: 06/20/2018 SUBJECTIVE: The patient is better. Decrease in nausea and vomiting. EXAMINATION: Vital Signs: Temp is 98, pulse 87, blood pressure is stable. Room air 100%. HEENT: Within normal limits. Chest: Clear. Heart: Heart sounds are regular. Abdomen: Belly is soft, nontender. ASSESSMENT AND PLAN: 1. Congestive heart failure due to ischemic cardiomyopathy, stable. I want to decrease the IV Lasix to once a day. 2. Advance the diet. 3. Slowly reconcile home medications. If stable the next 24 hours, will go slowly planning for discharge. LEVEL OF DOCUMENTATION: 25 minutes. cc: Bryon Rodrigues MD MTDD
[2018-06-20] MEDS ORDERED: ATORVASTATIN CALCIUM PO SCH (21:00)
[2018-06-20] MEDS: COREG PO SCH (21:22)
[2018-06-20] MEDS: BENADRYL PO PRN (21:22)
[2018-06-20] MEDS: ALDACTONE PO SCH (21:22)
[2018-06-20] MEDS: PERICOLACE PO SCH (21:22)
[2018-06-20] MEDS: MIRALAX PO SCH (21:30)
[2018-06-20] MEDS: ZITHROMAX 500 MG/NS 500 MG/250 ML IVPB IV SCH (21:30)
[2018-06-20] MEDS: ZOFRAN IV PRN (21:30)
[2018-06-21 05:17] LABS: AGAP 12; BUN 9 mg/dL (8-22); CALCIUM 9.7 mg/dL (8.8-10.2); CHLORIDE 103 mmol/L (98-107); COSMO 281; CREATININE 0.9 mg/dL (0.5-0.9); ESTIMATED GFR > 60; GLUCOSE 88 mg/dL (70-104); POTASSIUM 3.6 mmol/L (3.5-5.1); SODIUM 142 mmol/L (136-145); TCO2 27 mmol/L (25-35)
[2018-06-21 05:24] LABS: BASO# 0.11 X1000 (0.0-0.2); BASO% 1.2 % (0.0-0.8); EOS% 7.4 % (0.0-10.0); HEMOGLOBIN 10.1 g/dL (12.0-16.0); LYMPH# 3.98 X1000 (1.2-3.4); LYMPH% 41.9 % (20.5-51.1); MCH 19.9 PG (27-31); MCHC 28.9 g/dL (33-37); MONO# 0.78 X1000 (0.11-0.59); MONO% 8.2 % (1.7-9.3); MPV 10.3 FL (7.4-10.4); NEUT# 3.92 X1000 (1.4-6.5); NEUT% 41.3 % (42.2-75.2); PLT 369 X1000 (130-400); RBC 5.07 XMIL (4.2-5.4); RDW 19.1 % (11.5-14.5); WBC 9.49 X1000 (4.8-10.8)
[2018-06-21 05:28] LABS: FREE T4 1.38 ng/dL (0.93-1.70); TSH 2.3 uIUmL (0.27-4.20)
[2018-06-21] MEDS: HUMULIN R SUBQ SCH ×2 (06:30→12:34)
[2018-06-21] MEDS: ZOFRAN IV PRN (06:31)
[2018-06-21] MEDS: ALDACTONE PO SCH (08:59)
[2018-06-21] MEDS: COREG PO SCH (08:59)
[2018-06-21] MEDS ORDERED: PLAVIX PO SCH (09:00)
[2018-06-21] MEDS ORDERED: CARAFATE PO SCH (09:00)
[2018-06-21] MEDS ORDERED: IMDUR PO SCH (09:00)
[2018-06-21] MEDS ORDERED: ASPIRIN PO SCH (09:00)
[2018-06-21] MEDS: MIRALAX PO SCH (09:00)
[2018-06-21] MEDS: PERICOLACE PO SCH (09:00)
[2018-06-21] MEDS ORDERED: CYMBALTA PO SCH (09:00)
[2018-06-21] MEDS ORDERED: LASIX IV SCH (09:00)
[2018-06-21 11:20] VITALS: BP 102/77
--- NOTE | 2018-06-22 15:38 | DISCHARGE SUMMARY ---
ADMISSION DATE: 06/17/2018 DISCHARGE DATE: 06/21/2018 DISCHARGE DIAGNOSIS: Acute systolic heart failure due to ischemic cardiomyopathy with nonsustained ventricular tachycardia. SECONDARY DIAGNOSIS: 1. Diabetic gastroparesis due to underlying diabetes exacerbated by chronic cannabis syndrome. 2. Status post below-knee amputation on the left side due to pelvic inflammatory disease. 3. Hypertension. 4. Hyperlipidemia. 5. Complicated diabetes. 6. Coronary artery disease. 7. Peripheral vascular disease. BRIEF HISTORY: Please see the H and P that was done on 06/17/2018. In brief, she is a 47-year- old, white female, complicated diabetes with above problems. Recently discharged from [facility], who came in here for acute shortness of breath, hypoxic. She has bilateral inspiratory crackles for which IV Lasix had good results. She has known history of ischemic cardiomyopathy, EF 30%, status post AICD. The patient also developed hypokalemia after diuresis for which potassium was replaced. During security monitor, she has nonsustained ventricular tachycardia, and she already had AICD. Patient has significant diabetic gastroparesis for which Zithromax was given. She is tolerating the diet very well. Oxygen level is improved. Followup chest x-ray with improving pulmonary edema. Rest of the hospital course was uneventful. LABS: Labs are as follows: CBC: White cell count 9.4, hematocrit 35, MCV 69, platelets 369. Sodium 142, potassium 3.6, BUN 9, creatinine 0.9, glucose 88, calcium 9.7, magnesium 2.1. TSH and free T4 are normal. Blood cultures were negative. DISCHARGE INSTRUCTIONS: 1. Xanax 0.25 p.o. b.i.d., aspirin 325 daily, Coreg 25 p.o. b.i.d., Plavix 75 daily, Protonix 40 daily. Compazine as needed for nausea. 2. Aldactone 25 p.o. b.i.d., Carafate 1 g p.o. t.i.d. Demadex 20 mg 2 tablets p.o. b.i.d., Lipitor 80 daily, isosorbide 60 daily. 3. Subcutaneous insulin pump. 4. Duloxetine 60 daily, Senna 1 tablet p.o. b.i.d., MiraLAX 17 g daily, Linzess 145 mcg daily. 5. Lyrica 75 p.o. b.isiena., Shirley arroyo nausea. 6. Follow up as an outpatient, and she is going to see her java mobile developer at [facility] and another dictation. cc: Bryon Rodrigues MD
== END 2018-06-21 13:32 | disposition home or self-care (01) | DRG 292 ==
LOC: ED 10:00 → 3N 14:03
PROVIDERS: ADMIT Internal Medicine; ATTEND Internal Medicine
CPT/HCPCS: 71020; 71046; 80048; 80053; 80101; 80301; 80307; 80324; 80345; 80346; 80353; 80358; 80361; 80365; 81001; 82550; 82805; 82948; 83605; 83690; 83735; 83880; 83992; 84100; 84439; 84443; 84484; 85025; 87040; 93005; 96374; 96375; 99285; A9270; C9113; G0431; G0434; G0479; G0480; J0456; J0696; J1885; J1940; J2270; J2405; J2550; J3480; J7030; J7040; S0164; XXXXX

== ENCOUNTER 2018-08-27 15:21 | Inpatient (IN) ==
[2018-08-27] MEDS ORDERED: SODIUM CHLORIDE 0.9% INJ ONE (16:36)
[2018-08-27] MEDS ORDERED: ZOFRAN IV ONE (16:36)
[2018-08-27] MEDS ORDERED: PHENERGAN IV ONE (16:36)
[2018-08-27] MEDS ORDERED: ATIVAN IV ONE (16:36)
[2018-08-27] MEDS ORDERED: MORPHINE IV ONE (16:37)
[2018-08-27] MEDS ORDERED: ASPIRIN PO ONE (17:33)
[2018-08-27 17:57] LABS: BASO% 0.6 % (0.0-0.8); EOS% 1.1 % (0.0-10.0); HEMATOCRIT 35.1 % (37.0-47.0); HEMOGLOBIN 10.5 g/dL (12.0-16.0); LYMPH% 13.5 % (20.5-51.1); MCH 19.7 PG (27-31); MCHC 29.9 g/dL (33-37); MCV 65.9 FL (81-99); MONO% 2.9 % (1.7-9.3); MPV 10.6 FL (7.4-10.4); NEUT% 81.5 % (42.2-75.2); PLT 463 X1000 (130-400); RBC 5.33 XMIL (4.2-5.4); RDW 17.4 % (11.5-14.5); WBC 14.63 X1000 (4.8-10.8)
[2018-08-27 17:58] LABS: BASO# 0.09 X1000 (0.0-0.2); EOS# 0.16 X1000 (0.0-0.7); IMM GRAN# 0.06 X1000 (0.0-0.04); IMM GRAN% 0.4 % (0.0-0.5); LYMPH# 1.98 X1000 (1.2-3.4); MONO# 0.43 X1000 (0.11-0.59); NEUT# 11.91 X1000 (1.4-6.5)
[2018-08-27 18:24] LABS: AGAP 18; ALB/GLOB RATIO 1.4; ALBUMIN 4.8 g/dL (3.5-5.0); ALKALINE PHOSPHATASE 105 U/L (32-104); AMYLASE 58 U/L (20-200); BUN 9 mg/dL (8-22); CALCIUM 9.8 mg/dL (8.8-10.2); CHLORIDE 99 mmol/L (98-107); COSMO 283; CREATININE 0.7 mg/dL (0.5-0.9); ESTIMATED GFR > 60; GLUCOSE 212 mg/dL (70-104); GOT 20 U/L (10-30); GPT 12 U/L (10-36); LIPASE 12 U/L (13-60); POTASSIUM 3.8 mmol/L (3.5-5.1); SODIUM 139 mmol/L (136-145); TCO2 22 mmol/L (25-35); TOTAL BILIRUBIN 0.48 mg/dL (0.20-1.00); TOTAL PROTEIN 8.2 g/dL (6.3-8.3)
[2018-08-27] MEDS ORDERED: NS 1,000 ML IV ONE (20:13)
[2018-08-27 21:27] LABS: URINE SOURCE CLEAN CATCH
[2018-08-27 21:29] LABS: BILIRUBIN URINE NEGATIVE (NEGATIVE); BLOOD URINE NEGATIVE (NEGATIVE); COLOR STRAW; GLUCOSE URINE 200 mg/dL (NEGATIVE); KETONE URINE NEGATIVE (NEGATIVE); LEUKOCYTES URINE NEGATIVE (NEGATIVE); NITRITE URINE NEGATIVE (NEGATIVE); PH URINE 8.5; PROTEIN URINE NEGATIVE (NEGATIVE); SP GRAVITY URINE 1.002; TURBIDITY URINE CLEAR (CLEAR); UR EPITHELIAL CELLS <10 /HPF (<10); URINE BACTERIA NEGATIVE /HPF; URINE RBC <10 /HPF (<10); URINE WBC <10 /HPF (<10); UROBILINOGEN URINE NORMAL (NORMAL)
[2018-08-27 21:32] LABS: MAGNESIUM 1.8 mg/dL (1.5-2.7); PHOSPHORUS 1.6 mg/dL (2.7-4.5)
--- NOTE | 2018-08-27 21:35 | Diag Imaging Result Doc PS360 ---
EXAM: ABDOMEN FLAT/UPRIGHT 08/27/2018 HISTORY: possible ileus TECHNIQUE: Flat and upright abdomen COMMENT: There is gas and stool in the colon without evidence of dilatation. The stomach and small bowel are not distended. There are are surgical clips in the right upper quadrant. There is no evidence organomegaly or mass. There has been no significant change since 04/29/2018. IMPRESSION: No evidence of obstruction or ileus. Electronically signed by Kolby Elizondo 08/27/2018 9:33 PM
[2018-08-27 21:41] LABS: HEMOGLOBIN A1C 8.2 % (4.8-6.0)
[2018-08-27 21:43] LABS: UR AMPHETAMINES QUAL NONE DETECTED (NONE DETECT); UR BARBITUATES QUAL NONE DETECTED (NONE DETECT); UR BENZODIAZEPIN QUAL NONE DETECTED (NONE DETECT); UR CANNABINOIDS QUAL PRESUMPTIVE POSITIVE (NONE DETECT); UR COCAINE QUAL NONE DETECTED (NONE DETECT); UR METHADONE QUAL NONE DETECTED (NONE DETECT); UR OPIATES QUAL NONE DETECTED (NONE DETECT); UR OXYCODONE QUAL NONE DETECTED (NONE DETECT); UR PCP QUAL NONE DETECTED (NONE DETECT)
[2018-08-27] MEDS ORDERED: LANTUS INSULIN SUBQ ONE (21:58)
[2018-08-27] MEDS ORDERED: TYLENOL PO PRN (21:58)
[2018-08-27] MEDS ORDERED: SODIUM CHLORIDE 0.9% INJ SCH (21:58)
--- NOTE | 2018-08-27 22:19 | HISTORY AND PHYSICAL ---
PRIMARY CARE PHYSICIAN: Dr. Rodrigues. REASON FOR ADMISSION: Intractable nausea and vomiting today. HISTORY OF PRESENT ILLNESS: Ms. Melanie Luo is a 47-year-old, type 2 diabetic on an insulin pump, who has a past medical history of coronary artery disease status post bypass and stenting. She also has a history of diabetic neuropathy, hyperlipidemia, hypertension, sleep apnea, peripheral vascular disease. She comes in today with complaints of no cardiorespiratory complaints except for chest pain that occurred after multiple episodes of vomiting. She has since received morphine and Phenergan, and the pain has resolved. She denies any antecedent complaints of leg swelling. No objective fever or chills noted. Otherwise, rest of history could not be fully ascertained because the patient was very drowsy and could not give details about the quality or the nature of her chest pain. ALLERGIES: Penicillin and Reglan. MEDICATIONS: Home medication list has not been reconciled, but she is on insulin pump. In her old records, she has taken Plavix, Imdur, Coreg, and atorvastatin. She states she has had erythromycin in the past. PAST MEDICAL HISTORY: See above. PAST SURGICAL HISTORY: She has had pacemaker/AICD placement, tonsillectomy, coronary bypass surgery with 4 stents, cholecystectomy, peripheral angioplasty, tubal ligation, right and left femoral-popliteal bypass, left toe amputation, subsequent left BKA, and femoral bypass with cadaveric graft. FAMILY HISTORY: Notable for diabetes in 1st degree relatives and stroke. SOCIAL HISTORY: Does not smoke, drink, or use drugs except in the past, she used to use cannabis. We did not ask what she is currently using. A drug screen was ordered instead. LABORATORY DATA: White count is 14,000, hemoglobin 10, hematocrit 35, platelets 463,000, MCV 66, RDW 17, 81% neutrophils, platelets 463,000. BUN is 9, creatinine 2.7, glucose 212. Alkaline phosphatase 105, but transaminases are normal. Troponin, 1st one was 0.069, subsequent one 0.073. Lipase and amylase normal. IMAGING: No EKG or imaging studies were ordered. PHYSICAL EXAMINATION: VITAL SIGNS: Blood pressure 188/107, pulse rate 88, respirations 31, temperature 98.3 degrees, she is 96% on room air. GENERAL: She is a middle-aged, obese, woman who is very drowsy from sedation and pain medication. She is well aroused. She is oriented to person and place and time. HEENT: Head is normocephalic, atraumatic. Eyes: PERRLA, EOMI. Sclerae are anicteric but pale. ENT and oropharynx exam shows dry oral mucosa with some cyanosis. NECK: Supple. No JVD or carotid bruit. No thyromegaly. She has good skin turgor. CHEST: Clear when auscultated. Good air entry in both lung schwartz. CARDIOVASCULAR: First and 2nd heart sounds heard. No gallops, murmurs, or rubs. Rhythm is regular. ABDOMEN: Protuberant, soft. Tenderness confined to the epigastrium and suprapubic area. No rebound or guarding. Bowel sounds are hypoactive. No mass or organomegaly. RECTAL: Deferred at this time. EXTREMITIES: The patient has surprisingly good distal pulses which are symmetrical, regular. No edema, clubbing, or cyanosis. No tremors. NEUROLOGICAL: No gross focal deficits. SKIN: Intact. No breakdown, lesions, or erythema. MUSCULOSKELETAL: Grossly normal. ASSESSMENT: 1. Acute diabetic gastroparesis. 2. Atypical chest pain, probably reflux esophagitis. 3. Coronary artery disease. 4. Peripheral arterial disease. 5. Type 2 diabetes with neuropathy, uncontrolled. 6. Hypertension. 7. Chronic systolic heart failure. 8. Hyperlipidemia. 9. Sleep apnea. 10. Microcytic anemia, probably secondary to iron deficiency anemia from malabsorption. PLAN: The patient will be admitted. Hydrated aggressively initially, then cautiously. Due to the patient's underlying heart failure, we will need to be very cautious of aggressive rehydration. After the 3rd L of fluid which this patient definitely needs, we will cease further IV infusion and defer to Dr. Rodrigues, her primary care physician, for further hydration. Flat and upright has been ordered by me just now. Urinalysis has just been ordered and drug screen. These were not done. The patient will be treated symptomatically with IV Zofran and H2 blockers. The thought of starting the patient on erythromycin was brought up, but because the patient is on high-dose Zofran the risk of QT prolongation is a little worrisome. I have also ordered magnesium and phosphorus. These will need to be corrected if abnormal. Insulin pump will be discontinued, and patient will be on frequent low sliding scale and Lantus. Anemia workup was ordered in view of the patient's microcytic anemia, and IV parental drugs will be given to manage the rest of her other problems, if possible. IV hydralazine will be given for hypertension. cc: MD Bryon Nelson MD MTDD
[2018-08-27] MEDS: NS + KCL 20 MEQ 1,000 ML IV SCH (23:46)
[2018-08-27] MEDS: HUMALOG SUBQ SCH (23:47)
[2018-08-27] MEDS: ZOFRAN IV PRN (23:49)
[2018-08-27] MEDS: LOVENOX SUBQ SCH (23:49)
[2018-08-27] MEDS: APRESOLINE IV PRN (23:50)
[2018-08-27] MEDS: PEPCID IV SCH (23:52)
[2018-08-28] MEDS: COMPAZINE IV PRN ×2 (01:56→14:32)
[2018-08-28] MEDS ORDERED: NS 1,000 ML IV ONE (05:26)
[2018-08-28] MEDS: HUMALOG SUBQ SCH ×6 (05:30→21:04)
[2018-08-28] MEDS: APRESOLINE IV PRN (05:38)
[2018-08-28] MEDS: ZOFRAN IV PRN ×2 (05:54→19:15)
[2018-08-28 07:13] LABS: BASO# 0.02 X1000 (0.0-0.2); BASO% 0.2 % (0.0-0.8); HEMATOCRIT 34.9 % (37.0-47.0); HEMOGLOBIN 10.4 g/dL (12.0-16.0); IMM GRAN# 0.03 X1000 (0.0-0.04); IMM GRAN% 0.3 % (0.0-0.5); LYMPH# 1.27 X1000 (1.2-3.4); LYMPH% 10.7 % (20.5-51.1); MCH 19.4 PG (27-31); MCHC 29.8 g/dL (33-37); MCV 65.2 FL (81-99); MONO# 0.37 X1000 (0.11-0.59); MONO% 3.1 % (1.7-9.3); NEUT# 10.19 X1000 (1.4-6.5); NEUT% 85.7 % (42.2-75.2); PLT 453 X1000 (130-400); RBC 5.35 XMIL (4.2-5.4); RDW 17.5 % (11.5-14.5); WBC 11.88 X1000 (4.8-10.8)
[2018-08-28 07:37] LABS: AGAP 16; BUN 8 mg/dL (8-22); CALCIUM 9.2 mg/dL (8.8-10.2); CHLORIDE 101 mmol/L (98-107); COSMO 278; CREATININE 0.6 mg/dL (0.5-0.9); ESTIMATED GFR > 60; GLUCOSE 241 mg/dL (70-104); POTASSIUM 3.3 mmol/L (3.5-5.1); SODIUM 136 mmol/L (136-145); TCO2 19 mmol/L (25-35)
[2018-08-28] MEDS ORDERED: LANOXIN IV ONE (07:39)
[2018-08-28] MEDS ORDERED: CORDARONE 360 MG/D5W 360 MG/200 ML IV.SOLN IV ONE (07:42)
[2018-08-28 07:54] LABS: ANISOCYTOSIS 1+; BANDS 2 % (0-1); HYPOCHROM 1+; LYMPHS 10 % (21-51); MICROCYTOSIS 2+; MONO 4 % (1-9); SEGS 84 % (42-75)
[2018-08-28] MEDS ORDERED: MAGNESIUM SULFATE 2 GM/S.W.I. 2 GM/50 ML IVPB IV ONE (08:00)
--- NOTE | 2018-08-28 08:05 | Diag Imaging Result Doc PS360 ---
EXAM: CHEST-1 VIEW 08/28/2018 HISTORY: SOB TECHNIQUE: AP portable at 0757 COMMENT: There is no evidence of acute cardiac or pulmonary disease. There are is a pacemaker on the left and there are sternotomy wires. Compared to 06/18/2018 there has been no significant change. IMPRESSION: No acute disease. Electronically signed by Kolby Elizondo 08/28/2018 8:03 AM
--- NOTE | 2018-08-28 08:07 | EKG Report ---
Test Performed on : 08/28/2018 07:54:12 AM Test Reason : chest pain Blood Pressure : / mmHG Vent. Rate : 106 BPM Atrial Rate : 106 BPM P-R Int : 186 ms QRS Dur : 120 ms QT Int : 328 ms P-R-T Axes : 048 074 230 degrees QTc Int : 435 ms Sinus tachycardia. Possible Left atrial enlargement Incomplete left bundle branch block Nonspecific ST and T wave abnormality Abnormal ECG When compared with ECG of 27-AUG-2018 17:51, (Unconfirmed) premature ventricular complexes. are no longer present Nonspecific T wave abnormality now evident in Anterior leads QT has shortened Confirmed by Dillon ALEXANDRA, Tramaine Reynolds ([id number]) on 08/28/2018 10:24:04 AM
[2018-08-28] MEDS: NS + KCL 20 MEQ 1,000 ML IV SCH (08:10)
[2018-08-28] MEDS: PEPCID IV SCH ×4 (08:50→21:05)
--- NOTE | 2018-08-28 08:53 | EKG Report ---
Test Performed on : 08/27/2018 5:51:55 PM Test Reason : n/v, diaphoresis Blood Pressure : / mmHG Vent. Rate : 088 BPM Atrial Rate : 088 BPM P-R Int : 200 ms QRS Dur : 128 ms QT Int : 420 ms P-R-T Axes : 030 053 085 degrees QTc Int : 508 ms Sinus rhythm. with frequent premature ventricular complexes. Nonspecific intraventricular block Nonspecific T wave abnormality Abnormal ECG When compared with ECG of 04-AUG-2018 17:56, (Unconfirmed) QT has lengthened Unconfirmed Result
[2018-08-28 10:41] LABS: MAGNESIUM 2.5 mg/dL (1.5-2.7)
[2018-08-28] MEDS: LOPRESSOR IV SCH ×2 (12:10→19:00)
--- NOTE | 2018-08-28 13:38 | CARDIOLOGY CONSULTATION ---
DATE: 08/28/2018 CHIEF COMPLAINT ON PRESENTATION: Intractable nausea and vomiting. HISTORY OF PRESENT ILLNESS: Ms. Luo is a 47-year-old white female with a history of severe gastroparesis, diabetes, coronary disease, coronary bypass grafting. She is normally cared for by Dr. Randall Gandhi in [place] with last appointment around 5 to 6 months ago. In the last day or two, she has had increasing trouble with her gastroparesis, which is in a fairly typical fashion for her. She increased her Zofran accordingly, but presented to the hospital ultimately for repetitive nausea and vomiting. She had no acute chest pain issues on presentation. Denies any overt orthopnea or lower extremity edema. During the course of the hospitalization, it appears this morning at 6:47 a.m. she had what looked like an episode of a polymorphic ventricular tachycardia. Her device identified it and attempted antitachycardia pacing which was unsuccessful, and then subsequently delivered 1 shock with return to what appears to be sinus rhythm. The patient was awake during this event and reported feeling the shock, but really nothing significant prior to the event. She has been on increasing doses of amiodarone. She reports missing a couple of doses of her home medications secondary to vomiting. PAST MEDICAL HISTORY: 1. Significant for coronary disease with coronary bypass grafting. Her last heart catheterization per our records was in September of 2017. We are still searching the [place] records. She reported she had a catheterization done in the last couple of months. On her catheterization in September of 2017, she had a normal left main. The LAD had a 90% stenosis with competitive flow from the VILLALOBOS. The VILLALOBOS was patent with good runoff to the LAD. The circumflex had mild luminal irregularities with a large OM, which was completely occluded at the ostium. The SVG to the OM1 was widely patent with good runoff. There was an SVG to a diagonal that was widely patent with good runoff. The RCA was dominant with proximal mid and distal stents. There is 100% occlusion in the distal stent. There are mature collaterals from the left system filling the PDA. The LVEDP on that study was 16 with an ejection fraction of 35% by LVgram. 2. History of VFib arrest with defibrillator implant. This is a [place] INXPO device. 3. Hypertension. 4. Hyperlipidemia. 5. Diabetes/gastroparesis. 6. Peripheral vascular disease with history of left BKA. 7. Obstructive sleep apnea. 8. Anxiety. SOCIAL HISTORY: No tobacco, alcohol or illicit drugs. FAMILY HISTORY: Unremarkable for any premature coronary disease or sudden cardiac . REVIEW OF SYSTEMS: A 10 system review of systems is negative, except for those things mentioned in the HPI. PHYSICAL EXAM: Vital Signs: The patient is afebrile. Her heart rate is 103, her blood pressure is 158/87. General: She is in no acute distress. HEENT: Oropharynx is moist. Normal dentition. Eye examination is pink conjunctivae, white sclerae. Neck: Examination shows no obvious thyromegaly or thyroid tenderness. Cardiovascular: She sounds to be in regular rate and rhythm. She has no murmurs. She has no S3. She has no lower extremity edema. Chest: Her chest exam sounds clear bilaterally. She has no increased work of breathing. Abdomen: Soft. Mild diffuse tenderness. She has no rebound or guarding. Skin: Warm and dry throughout without any rashes. Neurological: She is moving all extremities well. She has no lateralizing deficits. Psychiatric: She is alert, oriented, pleasant. She has normal mood and affect. PERTINENT DATA: She had an abdomen x-ray which demonstrated no evidence of obstruction or ileus. Chest x-ray demonstrated no evidence of any acute disease. She had an EKG originally performed on the at 1751 hours, which shows a left bundle type pattern, sinus rhythm. Subsequent EKG showed again the appearance of an incomplete left bundle, sinus rhythm, no acute ischemic changes. QTc on that was 435, QTc on the original EKG on the was 508. She did appear to have a fairly long QT interval on her telemetry preceding the shock. The QT interval was very difficult to estimate on the current rhythm strip just prior to the event. It appears to be well over 500 milliseconds though. Her laboratory data showed a white count of 11.8, hematocrit of 35, a platelet count of 453. She had a bandemia with a left shift at 84% neutrophils, 2% bands. Sodium 136, potassium is 3.3. BUN 8, creatinine 0.6. Her Mag level is 2.5. Her cardiac enzymes are negative. ASSESSMENT: Ms. Luo is a 47-year-old female, who presented with gastroparesis- type symptoms. She has a history of an ischemic cardiomyopathy. She had an episode of polymorphic VT, which was preceded by significant increases in her Zofran usage, as well as demonstration of a prolonged QT interval on her telemetry. PLAN: Her device identified the rhythm, attempted antitachycardia pacing and delivered 1 shock with conversion to sinus. She is currently on amiodarone. At this point, we will likely continue that medication, ensure adequate repletion of her electrolytes. Her device is pending interrogation. We will try to get her re-initiated on some of her home medications to try to continue adequate control of her cardiac issues. cc: MD Bryon Calderon MD
[2018-08-28] MEDS ORDERED: CORDARONE 540 MG in D5W 289.2 ML IV ONE (13:42)
[2018-08-28] MEDS: DILAUDID IV PRN (19:21)
--- NOTE | 2018-08-28 19:26 | PROGRESS NOTE ---
DATE: 08/28/2018 SUBJECTIVE: A 47-year-old who is well known to this hospital, white female, with diabetic gastroparesis, came in with intractable nausea and vomiting. Admitted last night. 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 The patient was transferred to the emergency room. Waiting to be placed in the [facility]. Interval history was reviewed. PAST MEDICAL HISTORY: Reviewed. PAST SURGICAL HISTORY: Reviewed. MEDICATIONS: Reviewed. ALLERGIES: Penicillin and metoclopramide. PHYSICAL EXAMINATION: Vital Signs: Temperature is 98.4 degrees, pulse 92, blood pressure 126/72, height 5 feet 11 inches, and weight 258 pounds; morbidly obese. HEENT: Within normal limits. Neck: Supple. Chest: Bilateral air entry. Heart: Sounds are irregular, tachycardic. Abdomen: Belly is soft, obese, nontender. Extremities: Status post below-knee amputation of the left leg. Neurologic: No neurological deficits. LABS: CBC: White cell count 11, hematocrit 34.9, platelets 453,000. SMA7: Sodium 136, potassium 3.3, chloride 101, BUN 8, creatinine 0.6, glucose 122. Cardiac enzymes were normal. ProBNP was slightly high. Urine tox screen was positive for THC. Chest x-ray: No acute disease. ASSESSMENT: 1. Diabetic gastroparesis, impending dehydration. 2. Ischemic cardiomyopathy with nonsustained ventricular tachycardia. 3. Type 2 diabetes. PLAN OF CARE: 1. Dilaudid for pain. 2. Poor intravenous access. Consider peripherally inserted central catheter line. 3. Lanoxin was given, one dose, followed by Cordarone drip. 4. Discontinue intravenous fluids. 5. Ice chips or clear liquids as tolerated. 6. Cardiology consult. 7. For nausea, continue Zofran and Compazine as needed. 8. Deep venous thrombosis prophylaxis with Lovenox. 9. Gastrointestinal prophylaxis with intravenous Pepcid. 10. I appreciate GI homemaking rehabilitation consultant as well as cardiology consult with Dr. Kris Barillas. 11. Will follow up. LEVEL OF DOCUMENTATION: 35 minutes. cc: Bryon Rodrigues MD
[2018-08-28] MEDS: LOVENOX SUBQ SCH ×2 (20:10→21:04)
--- NOTE | 2018-08-28 22:43 | PROVIDER DOCUMENTATION ---
This chart was entered by Keri Calix Scribe, acting as scribe for Zaire Nolasco MD. HPI-Abdominal Pain/GI Problem - General Chief Complaint: Nausea/Vomiting Stated Complaint: VOMITING Time Seen by Provider: 08/27/18 16:26 Source: patient Allergies/Adverse Reactions: Patient Allergies Allergy/AdvReac Type Severity Reaction Status Date / Time metoclopramide HCl * Allergy Severe ANAPHYLAXIS Verified 03/19/18 07:54 [From Reglan] Penicillins Allergy Intermediate RASH Verified 03/19/18 07:54 Home Medications: Home Medication List Medication Instructions Recorded Confirmed Last Taken Type Aspirin 325 mg PO DAILY 11/25/17 08/28/18 08/27/18 08:00 History Atorvastatin Calcium [Lipitor] 1 tab PO HS 11/25/17 08/28/18 08/26/18 20:00 History Carvedilol 25 mg PO BID 11/25/17 08/28/18 08/27/18 08:00 History Clopidogrel Bisulfate [Plavix] 75 mg PO DAILY 11/25/17 08/28/18 08/27/18 08:00 History Isosorbide Mononitrate E.r. [Imdur] 60 mg PO DAILY 11/25/17 08/28/18 08/27/18 08:00 History Pantoprazole Sodium [Protonix] 40 mg PO DAILY 11/25/17 08/28/18 08/27/18 08:00 History Prochlorperazine [Compazine] 10 mg PO Q6H PRN 11/25/17 08/28/18 11/24/17 History Spironolactone 1 tab PO BID 11/25/17 08/28/18 08/27/18 08:00 History Subcutaneous Insulin Pump [Insulin 1 each MC DIRECTED 11/25/17 08/28/18 08/28/18 12:00 History Pump] Sucralfate 1 tab PO TID 11/25/17 08/28/18 08/27/18 08:00 History Torsemide 2 tab PO BID 11/25/17 08/28/18 08/27/18 08:00 History Duloxetine [Cymbalta] 60 mg PO DAILY capsule 11/29/17 08/28/18 08/27/18 08:00 Rx Linaclotide [Linzess] 145 mcg PO DAILY 10/19/18 05/15/19 05/14/19 08:00 History Polyethylene Glycol 3350 [Miralax] 17 gm PO BID 02/01/18 08/28/18 08/27/18 08:00 History Sennosides/Docusate Sodium 1 each PO BID 02/01/18 08/28/18 08/27/18 08:00 History [Senna-S Laxative Tablet] Pregabalin [Lyrica] 75 mg PO BID 03/19/18 08/28/18 08/27/18 08:00 History Ondansetron Odt [Zofran 4 mg Odt] 4 mg PO Q6H PRN PRN #30 tab 04/30/18 08/28/18 08/27/18 12:00 Rx Alprazolam 0.5 mg PO BID 08/28/18 08/28/18 08/26/18 20:00 History - History of Present Illness-ABD Nature of Presenting Problems: 47 yof presents to the ed with n/v and has a hx of gastroparesis. c/o epigastric pain/lower chest pain start after the vomiting. she is anxious holding the green bag for vomiting and doesn't give details. the chest pain she report on the next assessment. pt report Hx of cardiac bypass and stents few years ago. Abdominal Pain Onset Location: reports: epigastric Pain Radiation: reports: no radiation Quality of Pain: reports: cramping Severity in ED: reports: moderate Onset/Duration: reports: this morning Timing: reports: still present, intermittent Activities at Onset: reports: light activity Exposure to sick contacts?: No Modifying Factors: improves with: nothing. worse with: other (taking anything po) Associated Symptoms: reports: nausea, vomiting. denies: back/neck pain, chest pain, diaphoresis, diarrhea, fever/chills, shortness of breath, weakness Last BM: last night Dark Stools Present?: reports: none noticed Rectal Bleeding: reports: none # of Diarrhea Episodes: 0 Rectal Pain: reports: none # of Vomiting Episodes: 3 Emesis Description: reports: other (yellow) Bruising or Bleeding Gums?: No Similar Symptoms Previously?: Yes (gastroparesis) Recently seen or treated by another doctor?: No Review of Systems - Adult - REVIEW OF SYSTEMS - ADULT Constitutional: reports: no symptoms reported Eyes: reports: no symptoms reported Ears, Nose, Mouth & Throat: reports: no symptoms reported Cardiovascular: reports: chest pain, palpitations Respiratory: reports: see HPI Gastrointestinal: reports: see HPI, abdominal pain, nausea, vomiting. denies: diarrhea Genitourinary: reports: no symptoms reported Neurological: denies: dizziness/vertigo, headache/migraines Psychiatric: reports: anxiety, panic attacks Past History - Adult - PAST MEDICAL HISTORY-ADULT Review of Records: reports: Nursing Assessment Review, Medications Reviewed Major Childhood Illnesses: reports: denies history Cardiovascular: reports: CAD, HTN, hyperlipidemia, CO, pacemaker (defibrillator) . denies: CHF Respiratory: reports: denies history Gastrointestinal: reports: other (gastroperesis) Obstetrical/Gynecological: reports: other (ovarian cancer) Genitourinary: reports: denies history Musculoskeletal: reports: denies history Neurological: reports: denies history Psychiatric: reports: depression Endocrine/Immune: reports: Diabetes Other Conditions: reports: denies history - PRIOR SURGERIES/PROCEDURES Surgical/Procedure History: reports: CABG, cholecystectomy, pacemaker, BTL, C- section, tonsillectomy, other (LBKA) - IMMUNIZATION STATUS Childhood Immunizations: See Nurse Assessment Flu Vaccine: See Nurse Assessment - FAMILY HISTORY Family History: reviewed, not pertinent Physical Exam-General - CONSTITUTIONAL General Appearance: alert, mild distress, other (anxious holding the bag, no vomiting noted) - EYES Eyes: PERRL/EOMI - HEAD, EARS, NOSE, MOUTH & THROAT HENMT: normocephalic/atraumatic, moist mucous membranes - NECK Neck: non-tender, full range of motion, supple - RESPIRATORY Respiratory: lungs clear, normal breath sounds - CARDIOVASCULAR Cardiovascular: normal peripheral pulses, regular rate, rhythm, no edema - GASTROINTESTINAL (ABDOMEN) Abdominal Exam: soft, tenderness (epigastric) - MUSCULOSKELETAL Back Exam: normal inspection, no CVA tenderness, no vertebral tenderness Extremity: pelvis stable, other (LBKA) - PSYCHIATRIC Psych/Mental Status: oriented x 3, anxious Progress - PLAN OF CARE/RESULTS Progress/Plan/Lab Results: Vital Signs - 8 hr 08/27/18 15:28 Temperature 97.4 F L Pulse Rate 83 Respiratory Rate 18 Blood Pressure 172/100 O2 Sat by Pulse Oximetry 97 Orders Category Date Time Status Lorazepam [Ativan] Med 08/27/18 16:36 Discontinued 1 mg IV NOW ONE Morphine Med 08/27/18 16:37 Discontinued 4 mg IV NOW ONE Ondansetron [Zofran] Med 08/27/18 16:36 Discontinued 8 mg IV NOW ONE Promethazine [Phenergan] Med 08/27/18 16:36 Discontinued 25 mg IV NOW ONE Sodium Chloride 0.9% Med 08/27/18 16:36 Discontinued 10 ml INJ NOW ONE Result Diagrams: 08/28/18 06:05 08/28/18 06:05 - REASSESSMENT Reassessment #1 Time Reassessed: 16:50 Status: improving Reassessment #2 Time Reassessed: 19:21 Status: improving (sleeping comfortably) - CONSULTS/PCP/HOSPITALIST Notification #1 *Consult/PCP/Hospitalist*: Dr. Ayala Time Discussed: 19:57 Consult Disposition: Admit (Hx, PE and pt care discussed, accepted. f/u on troponin.) Departure - Departure Date of Disposition Decision: 08/27/18 Time of Disposition Decision: 19:56 DIAGNOSIS: Gastroparesis Chest pain Qualifiers: Chest pain type: unspecified Qualified Code(s): R07.9 - Chest pain, unspecified Vomiting Qualifiers: Vomiting Intractability: intractable Nausea presence: with nausea Disposition: ADMITTED INPATIENT 09 Certified Medical Emergency: Emergent Condition: Stable - Critical Care Note This patient required my direct & personal management of CC.: No Attestation - Physician/ JANNET Attestation Patient care was provided by Advanced Practice Provider:: No The physician spent face to face time with patient:: Yes Advanced Practice Provider documentation review:: Supervising physician onsite and consulted in the evaluation and care of this patient. The physician did have a face to face encounter with the patient. This chart was documented by the indicated scribe, (Keri Calix Scribe) and accurately reflects the services I performed and decisions made by me, Zaire Robertson MD, as attested by the provider's signature.
[2018-08-29] MEDS: LOPRESSOR IV SCH ×4 (00:17→17:08)
[2018-08-29] MEDS: HUMALOG SUBQ SCH ×6 (00:46→20:49)
[2018-08-29] MEDS: COMPAZINE IV PRN (02:57)
[2018-08-29] MEDS: DILAUDID IV PRN ×3 (03:00→11:48)
[2018-08-29 05:35] LABS: BASO# 0.07 X1000 (0.0-0.2); BASO% 0.7 % (0.0-0.8); HEMATOCRIT 32.1 % (37.0-47.0); HEMOGLOBIN 9.4 g/dL (12.0-16.0); IMM GRAN# 0.02 X1000 (0.0-0.04); IMM GRAN% 0.2 % (0.0-0.5); LYMPH# 2.06 X1000 (1.2-3.4); MCH 19.6 PG (27-31); MCHC 29.3 g/dL (33-37); MONO# 0.64 X1000 (0.11-0.59); MONO% 6.2 % (1.7-9.3); MPV 10.8 FL (7.4-10.4); NEUT# 7.41 X1000 (1.4-6.5); NEUT% 71.9 % (42.2-75.2); PLT 392 X1000 (130-400); RBC 4.79 XMIL (4.2-5.4); RDW 17.6 % (11.5-14.5)
[2018-08-29 05:45] LABS: AGAP 11; BUN 9 mg/dL (8-22); CALCIUM 8.7 mg/dL (8.8-10.2); CHLORIDE 104 mmol/L (98-107); COSMO 275; CREATININE 0.8 mg/dL (0.5-0.9); ESTIMATED GFR > 60; GLUCOSE 113 mg/dL (70-104); MAGNESIUM 2.3 mg/dL (1.5-2.7); POTASSIUM 3.1 mmol/L (3.5-5.1); SODIUM 138 mmol/L (136-145); TCO2 23 mmol/L (25-35)
--- NOTE | 2018-08-29 07:30 | EKG Report ---
Test Performed on : 08/29/2018 06:59:25 AM Test Reason : chest pain Blood Pressure : / mmHG Vent. Rate : 070 BPM Atrial Rate : 070 BPM P-R Int : 194 ms QRS Dur : 124 ms QT Int : 424 ms P-R-T Axes : 049 078 138 degrees QTc Int : 457 ms Sinus rhythm. with occasional premature ventricular complexes. Nonspecific intraventricular conduction delay T wave abnormality, consider inferior ischemia Abnormal ECG When compared with ECG of 28-AUG-2018 07:54, premature ventricular complexes. are now present Vent. rate has decreased BY 36 BPM Inverted T waves have replaced nonspecific T wave abnormality in Inferior leads Confirmed by Dillon ALEXANDRA, Tramaine Reynolds ([id number]) on 08/30/2018 10:53:48 AM
[2018-08-29] MEDS: ZOFRAN IV PRN (07:55)
[2018-08-29] MEDS: D5 1/2 NS 1,000 ML IV SCH (07:56)
--- NOTE | 2018-08-29 08:38 | GASTROENTEROLOGY CONSULTATION ---
DATE: 08/28/2018 Patient seen and examined. Full consult note to follow. Continue scheduled antiemetics. cc: Bryon Rodrigues MD
[2018-08-29] MEDS ORDERED: ZOFRAN IV PRN (08:52)
[2018-08-29] MEDS: PROTONIX IV SCH (09:25)
--- NOTE | 2018-08-29 09:36 | PROGRESS NOTE ---
DATE: 08/29/2018 SUBJECTIVE: The patient is very nauseated and retching, not able to eat anything down. Appreciated Cardiology consult. OBJECTIVE: Vital signs: On exam, temperature 98 degrees, pulse 77, and blood pressure is stable. HEENT: Within normal limits. Chest: Clear. Heart: Sounds are regular. Abdomen: Belly is soft and obese. DIAGNOSTIC: quality assurance monitor body with no atrial fibrillation and nonsustained ventricular tachycardia noted. LABORATORY: CBC: White cell count 10, hematocrit 32, platelets 392,000, and SMA 7. Sodium 138, potassium 3.1, BUN 9, and creatinine 0.8. The patient is still on insulin drip. Chest x-ray was stable. ASSESSMENT AND PLAN: 1. Diabetic gastroparesis. Plan is Zofran and promethazine. IV fluids D5 half-normal saline 50 mL/h. 2. Hypokalemia. Replace the potassium. 3. DVT and GI prophylaxis with enoxaparin and Protonix. 4. Nonsustained ventricular tachycardia, status post atrial fibrillation, currently on Cordarone drip. Advance the diet and reconcile home medicines. 5. Discussed the plan of care with the family at bedside. LEVEL OF DOCUMENTATION: 25 minutes. cc: Bryon Rodrigues MD
[2018-08-29] MEDS: POTASSIUM CHLORIDE 20 MEQ/SWI 20 MEQ/100 ML IVPB IV SCH ×2 (09:54→13:00)
[2018-08-29] MEDS: DULCOLAX PR SCH ×2 (09:54→21:29)
[2018-08-29] MEDS: MIRALAX PO SCH ×2 (09:54→20:49)
[2018-08-29] MEDS: ICAR-C PO SCH ×2 (09:54→20:48)
[2018-08-29] MEDS: CORDARONE PO SCH ×2 (09:54→20:48)
[2018-08-29] MEDS: CENTRUM SILVER PO SCH (09:54)
--- NOTE | 2018-08-29 13:02 | GASTROENTEROLOGY CONSULTATION ---
DATE: 08/29/2018 REASON FOR CONSULTATION: Gastroparesis exacerbation. HISTORY OF PRESENT ILLNESS: Ms. Melanie Luo is a 47-year-old woman with past medical history of hypertension, insulin-dependent diabetes complicated by gastroparesis and peripheral neuropathy, hyperlipidemia, coronary artery disease, status post CABG, left [id number] amputation, peripheral artery disease, status post pacemaker and ICD placement, cholecystectomy, and GERD, who presents with acute-onset intractable nausea and vomiting that started yesterday after lunch. The patient reports that over the last several days, feeling congestion and increased phlegm fit and fatigue. Yesterday, a couple hours after having lunch, she started having intractable nonbloody, nonbilious emesis on numerous episodes, with dry heaving. She complains of associated left upper quadrant cramping and chest discomfort, bloating and early satiety. This is similar to her prior episodes of gastroparesis exacerbation. She denies any recent changes to her medications, diet, weight loss, rectal bleeding, melena, diarrhea, constipation. She takes Protonix, Marinol, Carafate, Compazine, and sublingual Zofran at home, which did not help her symptoms yesterday. Typically, her symptoms get better after being admitted and getting IV pain medications and antiemetics. She has been seen at [facility] for consideration of gastric pacemaker. However, she was deemed not a candidate given her ICD and pacemaker placement. She says her blood sugars have been pretty well controlled at home. She is unable to tolerate Reglan in the past. She is followed by Dr. Meneses, who had discussed with her in the past a venting gastrostomy with J-tube extension for palliation of her gastroparesis. She does smoke marijuana regularly, at least 3 times a week, which she does to help with her pain. REVIEW OF SYSTEMS: As per HPI, otherwise a 12-point review of systems was negative. Of note, the patient did have her defibrillator go off while in the hospital, and Cardiology is following. PAST MEDICAL HISTORY: As per HPI. PAST SURGICAL HISTORY: Pacemaker, ICD placement, tonsillectomy, coronary artery disease with 4 stents, cholecystectomy, femoropopliteal bypass of the right lower extremity, left BKA. FAMILY HISTORY: No family history of GI diseases or malignancies. SOCIAL HISTORY: The patient does not smoke or drink alcohol. She does smoke marijuana regularly. MEDICATIONS: Reviewed in the chart. Did not appear to be reconciled recently. Per her history, she does take Carafate, Compazine, Zofran sublingual, Protonix, Marinol. ALLERGIES: Reglan and penicillins. PHYSICAL EXAMINATION: Vital Signs: Temperature 98.4, heart rate 77, respiratory rate 15, blood pressure 173/71, O2 saturation 92% on room air. General: The patient is awake, alert, oriented, no acute distress. HEENT: Sclerae anicteric. Moist mucous membranes. No oral ulcers. Neck: Supple. No JVD, lymphadenopathy. Cardiac: Regular rate and rhythm. No murmurs. Lungs: Clear to auscultation bilaterally. Abdomen: Nondistended. Tender in the epigastric left upper quadrant. No rebound or guarding. Bowel sounds are present. Extremities: No clubbing, cyanosis, or edema in the right lower extremity. Left BKA. Neurologic: Nonfocal. LABORATORY DATA: White count of 11.8, hemoglobin 10.4, platelets of 453,000. Sodium 136, potassium 3.3, chloride 101, bicarb 19, BUN of 8, creatinine 0.6, glucose of 241. Hemoglobin A1c of 8.2. Iron 34, ferritin 19. Total bilirubin 0.48, AST 20, ALT 12, alkaline phosphatase 105. CK of 72. Troponin of 0.079. ProBNP 7068. Lipase of 12, albumin 4.8. Total protein 8.2. UA shows glucose. Urine toxicology positive for cannabinoids. IMAGING: Abdominal x-ray shows gas and stool in the colon, without signs of obstruction. No evidence of ileus. Chest x-ray: No acute disease. EKG shows an incomplete left bundle branch block, nonspecific ST-T wave abnormalities, QTc of 435. ASSESSMENT AND PLAN: Ms. Melanie Luo is a 47-year-old woman with a past medical history of insulin-dependent diabetes that is moderately controlled, complicated by peripheral neuropathy and gastroparesis, who presents with intractable nausea and vomiting consistent with gastroparesis exacerbation. She has had extensive workup in the past, and has had gastric emptying studies that showed marked abnormal emptying after two hours in 07/2016. She has responded in the past to intravenous Zofran and Compazine, as well as intravenous fluids and pain control. She denies any obstructive symptoms or constipation. Her presentation is complicated by the fact that she smokes marijuana regularly, and there may be a component of cyclic vomiting syndrome from cannabinoid hyperemesis. We discussed the possibility of a venting gastrostomy with J-tube extension as a palliative measure. However, I also encouraged her to stop smoking marijuana. Her renal function is preserved. Her QTc is normal. Cardiology was consulted after the patient's implantable cardioverter defibrillator went off while the patient was on the floor in the setting of run of ventricular tachycardia. 1. Gastroparesis exacerbation. Recommend scheduling her Zofran every 6 hours prior to meals. Give Compazine as needed for breakthrough. Recommend alternating between the two antiemetics. Intravenous fluids. Minimize narcotics. Correct electrolyte abnormalities. Glycemic control with insulin. Proton pump inhibitor by mouth. If unable to tolerate, give intravenously. 2. Insulin-dependent diabetes. Recommend sliding scale insulin. 3. Marijuana abuse. Encourage marijuana cessation. 4. Coronary artery disease, status post bypass and pacemaker/implantable cardioverter defibrillator placement with recent ventricular tachycardia with triggering her defibrillator. Cardiology is following. The patient is not having any chest pain currently. Defer to Cardiology for further management. Thank you for this consult. Will follow with you. Please call with any questions or concerns. cc: Bryon Rodrigues MD
--- NOTE | 2018-08-29 13:25 | CARDIOLOGY PROGRESS NOTE ---
DATE: 08/29/2018 SUBJECTIVE: Ms. Luo continues to have a significant burden of vomiting and nausea. She has had no more device shocks. OBJECTIVE: Vital Signs: She is afebrile, heart rate 77, blood pressure 173/71. General: She is in moderate distress secondary to generalized nausea. Cardiovascular: She is in a regular rate and rhythm. She has no murmurs, no S3. Extremities: No lower extremity edema. Chest: Sounds relatively clear to auscultation bilaterally. No increased work of breathing. Abdomen: Soft. Mild diffuse tenderness. PERTINENT LABORATORY DATA: White count 10.3, hematocrit 32, platelet count is 392,000. Sodium 138, potassium 3.1, BUN 9, creatinine 0.8. ASSESSMENT: Ms. Luo is a 47-year-old female with gastroparesis, who had an episode of torsades yesterday. PLAN: Her device was checked. She had an appropriate shock. No other issues noted on her device. We will continue to try to treat this medically. I will initiate her on oral amiodarone, which she has already had an IV load yesterday. We will try to obtain her heart catheterization records, which she again asserts that she had done in the last couple of months over in [place]. cc: MD Bryon Calderon MD
--- NOTE | 2018-08-29 15:39 | GASTROENTEROLOGY PROGRESS NOTE ---
DATE: 08/29/2018 SUBJECTIVE: Patient is resting in bed. She complains of nausea and dry heaving this morning. She has not thrown up. She denies any fevers, rigors, chills. Complains of abdominal discomfort in the pelvic region. Her last bowel was more than 2 days ago. She has had a EGD and colonoscopy done in 2018. which had shown evidence of scattered diverticulosis and constipation and mild erosive gastritis. PHYSICAL EXAMINATION: Vital Signs: Temperature 98.4 degrees, pulse of 77, respiratory rate of 15, blood pressure 170/71, saturating 92% on room air. Body weight of 258 pounds, BMI of 36.0 kg. General: The patient is lying in bed, in no acute distress. HEENT: Pale conjunctivae. No icterus. Pupils equal, reactive to light. Neck: Supple. Abdomen: Obese. Discomfort in the left lower quadrant. No rebound. No guarding. I noticed an insulin pump on the right mid abdomen. Extremities: No cyanosis, clubbing. She has a left below-knee amputation. Neurologic: She is alert, awake, oriented x3. LABORATORY DATA: Hemoglobin and hematocrit is 9.4 and 32, white count 10.3, platelet count of 392,000. Sodium 138, potassium 3.1, chloride 104, bicarb 23, anion gap 11, BUN of 9, glucose of 113, calcium is 8.74. Magnesium 2.3. Toxicology screen positive for cannabinoids. IMPRESSION AND PLAN: 1. Diabetic gastroparesis. The patient is on promethazine and Zofran. Will need to reduce the dose of promethazine as it can worsen the gastric emptying. The patient is allergic to Reglan. We will continue on clear liquid diet and advanced to diabetic diet. She will continue to take small frequent meals about 4 to 6 times daily. We will reduce the narcotics to the lowest possible. 2. Constipation. We will start patient on MiraLAX 17 g p.o. b.i.d. and Dulcolax per rectal b.i.d. 3. Diverticulosis. The patient will continue to be on a high fiber diet. Avoid excessive corn, nuts, and seeds in diet. 4. Anemia. Will start on Iron-C b.i.d. and multivitamins. 5. Diabetes. She is on insulin pump. Management per primary team. 6. Nausea and dry heaving. Continue on antiemetics and IV fluids for now. 7. Atrial fibrillation. She is on digoxin and amiodarone per the primary team. 8. Her urine toxicology was positive marijuana. This may have contributed to hyperemesis syndrome but we will have to wait and see how she does. 9. Microcytic anemia. She will continue Iron-C daily. 10. We will continue on gastrointestinal prophylaxis with PPIs and Protonix once daily. The above plan discussed with the patient and family and all questions answered. Please call us with any further questions. cc: MD Bryon Walker MD MTDD
[2018-08-29] MEDS: LOVENOX SUBQ SCH (21:30)
[2018-08-30] MEDS: LOPRESSOR IV SCH ×4 (00:28→17:45)
[2018-08-30] MEDS: DILAUDID IV PRN (00:59)
[2018-08-30] MEDS: HUMALOG SUBQ SCH ×6 (01:41→21:51)
[2018-08-30] MEDS: D5 1/2 NS 1,000 ML IV SCH (03:43)
[2018-08-30 05:48] LABS: EOS# 0.18 X1000 (0.0-0.7); EOS% 1.7 % (0.0-10.0); HEMATOCRIT 33.3 % (37.0-47.0); HEMOGLOBIN 9.8 g/dL (12.0-16.0); IMM GRAN# 0.02 X1000 (0.0-0.04); IMM GRAN% 0.2 % (0.0-0.5); LYMPH# 3.53 X1000 (1.2-3.4); LYMPH% 33.6 % (20.5-51.1); MCHC 29.4 g/dL (33-37); MONO# 0.82 X1000 (0.11-0.59); MONO% 7.8 % (1.7-9.3); MPV 10.6 FL (7.4-10.4); NEUT# 5.86 X1000 (1.4-6.5); NEUT% 55.7 % (42.2-75.2); PLT 393 X1000 (130-400); RDW 17.9 % (11.5-14.5); WBC 10.51 X1000 (4.8-10.8)
[2018-08-30 06:14] LABS: AGAP 12; BUN 5 mg/dL (8-22); CALCIUM 8.9 mg/dL (8.8-10.2); CHLORIDE 105 mmol/L (98-107); COSMO 272; CREATININE 0.7 mg/dL (0.5-0.9); ESTIMATED GFR > 60; GLUCOSE 79 mg/dL (70-104); POTASSIUM 3.7 mmol/L (3.5-5.1); SODIUM 138 mmol/L (136-145); TCO2 21 mmol/L (25-35)
[2018-08-30] MEDS: SODIUM CHLORIDE 0.9% INJ SCH (08:43)
[2018-08-30] MEDS: PROTONIX IV SCH (08:43)
[2018-08-30] MEDS: CENTRUM SILVER PO SCH (08:44)
[2018-08-30] MEDS: CORDARONE PO SCH ×2 (08:44→22:03)
[2018-08-30] MEDS: MIRALAX PO SCH ×2 (08:44→22:03)
[2018-08-30] MEDS: ICAR-C PO SCH ×2 (08:44→22:03)
[2018-08-30] MEDS: DULCOLAX PR SCH ×2 (08:44→21:51)
--- NOTE | 2018-08-30 19:57 | CARDIOLOGY PROGRESS NOTE ---
DATE: 08/30/2018 SUBJECTIVE: Ms. Luo feels much better today. She has less nausea. She has not had any device shocks or palpitations overnight. Telemetry does not show any significant events other than the original episode of torsades. PHYSICAL EXAMINATION: Vital signs: She is afebrile, heart rate is 79, blood pressure 118/47. General: She is in no acute distress. Cardiovascular: She sounds to be in a regular rate and rhythm. She has no obvious murmurs. She has no lower extremity edema. Chest exam: Sounds clear bilaterally. She has no increased work of breathing. Abdomen: Soft, nontender, nondistended. She has no obvious organomegaly. Skin exam: Warm and dry throughout. PERTINENT DATA: White count is 10.5, hematocrit of 33, platelet count 393,000. Sodium 138, potassium 3.7, BUN 5, creatinine 0.7. She did not have a magnesium level today. ASSESSMENT: Ms. Luo is a 47-year-old female who presented with gastroparesis. Subsequently, on high doses of Zofran, she had episodes of torsades with 1 shock from her defibrillator. PLAN: We will check an echo today, magnesium in the morning. Continue on amiodarone for the time being. cc: MD Bryon Calderon MD
--- NOTE | 2018-08-30 19:59 | PROGRESS NOTE ---
DATE: 08/30/2018 SUBJECTIVE: Last night, she had nonsustained ventricular tachycardia, did not go off, and belly pain is better. She is tolerating the clear liquids, slowly advance to full liquid diet. She is on D5W, and blood sugar is running high. She is on an insulin pump. PHYSICAL EXAMINATION: Vital signs: Temperature is 98 degrees, pulse 92, blood pressure is stable. HEENT: Within normal limits. Neck: Supple. Chest: Clear. Heart: Sounds are regular. Abdomen: Belly is soft, nontender. Extremities: Status post below-knee amputation on the left leg. Neurologic: No obvious neurological deficits. INVESTIGATIONS: White cell count 10, hematocrit 33, platelets 393,000. SMA-7 is normal. ASSESSMENT AND PLAN: 1. Torsades. Off Cordarone, currently on amiodarone 400 p.o. b.i.d. 2. Diabetic gastroparesis, improving. Advance to full liquids. 3. Discontinue IV fluids. 4. Continue Zofran and Phenergan for nausea. 5. Repeat the labs in the morning as well as magnesium. 6. If she tolerates the diet very well, advance the diet. 7. Will follow up. cc: Bryon Rodrigues MD
[2018-08-30] MEDS: LOVENOX SUBQ SCH (22:03)
--- NOTE | 2018-08-30 23:15 | PROVIDER PROGRESS NOTE ---
Progress Note SUBJECTIVE: No acute overnight events. N/V improved. No CP, SOB, abdominal pain. OBJECTIVE: Last Vital Signs Temp 98.7 F 08/30/18 20:00 Pulse 75 08/30/18 20:00 Resp 21 08/30/18 20:00 BP 102/79 08/30/18 20:00 Pulse Ox 100 08/30/18 20:00 Height 5 ft 11 in Weight 258 lb A/P: Ms. Melanie Luo is a 47-year-old woman with HTN, HLD, CAD s/p CABG, pacemaker/ICD, insulin-dependent diabetes that is moderately controlled, complicated by peripheral neuropathy who presented with intractable nausea and vomiting consistent with gastroparesis. Course complicated by ICD firing in setting of Torsades. Cardiology following. N/V resolved with supportive treatment #Gastroparesis: continue alternating compazine and zofran; small, frequent low fat meals, PPI, avoid narcotics #IDDM2: maintain glycemic control #Marijuana abuse: counseled on cessation #Constipation: on bowel regimen #Torsades: cardiology following, replete lytes prn #Anemia: stable #Afib: rate controlled; on amiodarone and metoprolol Will follow with you.
[2018-08-31] MEDS: HUMALOG SUBQ SCH ×6 (01:03→22:49)
[2018-08-31] MEDS: LOPRESSOR IV SCH ×4 (01:04→17:50)
--- NOTE | 2018-08-31 01:34 | ECHO REPORT ---
ORDER DATE: 08/30/2018 MEASUREMENTS: Septal thickness 1.1, left ventricular internal diameter diastole 6.7, posterior wall thickness 1.1, aortic root 2.8, left atrium 4.6. SUMMARY: 1. Technically difficult study due to limited acoustic window quality. Intravenous echo contrast agent Definity was utilized to enhance endocardial definition. 2. Aortic valve was without evidence of structural abnormality and opens adequately on 2- dimensional images. Peak gradient across aortic valve is approximately 10 mmHg. Mitral and tricuspid valves are without evidence of structural abnormality, while pulmonic valve is not well demonstrated. The estimated systolic PA pressure by Doppler is 30 to 35 mmHg. The aortic root is normal in size. 3. Moderate left ventricular enlargement with borderline concentric left ventricular hypertrophy is demonstrated. Estimated left ventricular ejection fraction approximately 25% in the setting of global hypokinesis. Intravenous echo contrast agent, Optison, was utilized to enhance endocardial definition. There is no evidence of apical thrombus. Left atrium is mild- to-moderately enlarged. Right atrium and right ventricle are grossly normal in size. 4. No pericardial effusion. 5. Appearance of inferior vena cava suggests normal central venous pressure. CONCLUSIONS: 1. Technically difficult study. 2. Mild tricuspid regurgitation with mild pulmonary hypertension by Doppler. 3. Moderate left ventricular enlargement with borderline concentric left ventricular hypertrophy and estimated left ventricular ejection fraction approximately 25%. 4. [id number] left atrial enlargement. cc: MD Kris Marks MD Jagan Reddy, MD
[2018-08-31] MEDS ORDERED: D50W SYRINGE IV ONE (05:35)
[2018-08-31 05:59] LABS: BASO# 0.08 X1000 (0.0-0.2); BASO% 0.7 % (0.0-0.8); EOS# 0.34 X1000 (0.0-0.7); EOS% 3.1 % (0.0-10.0); HEMATOCRIT 31.5 % (37.0-47.0); HEMOGLOBIN 9.2 g/dL (12.0-16.0); IMM GRAN# 0.03 X1000 (0.0-0.04); IMM GRAN% 0.3 % (0.0-0.5); LYMPH# 3.97 X1000 (1.2-3.4); LYMPH% 36.1 % (20.5-51.1); MCH 19.8 PG (27-31); MCHC 29.2 g/dL (33-37); MCV 67.9 FL (81-99); MONO# 0.99 X1000 (0.11-0.59); MPV 10.6 FL (7.4-10.4); NEUT# 5.58 X1000 (1.4-6.5); NEUT% 50.8 % (42.2-75.2); PLT 389 X1000 (130-400); RBC 4.64 XMIL (4.2-5.4); RDW 18.4 % (11.5-14.5); WBC 10.99 X1000 (4.8-10.8)
[2018-08-31 06:28] LABS: AGAP 12; BUN 4 mg/dL (8-22); CALCIUM 9.2 mg/dL (8.8-10.2); CHLORIDE 108 mmol/L (98-107); COSMO 279; CREATININE 0.8 mg/dL (0.5-0.9); ESTIMATED GFR > 60; GLUCOSE 47 mg/dL (70-104); POTASSIUM 3.3 mmol/L (3.5-5.1); SODIUM 143 mmol/L (136-145); TCO2 23 mmol/L (25-35)
[2018-08-31] MEDS: PROTONIX IV SCH (08:34)
[2018-08-31] MEDS: CORDARONE PO SCH (08:35)
[2018-08-31] MEDS: MIRALAX PO SCH ×2 (08:35→20:52)
[2018-08-31] MEDS: CENTRUM SILVER PO SCH (08:35)
[2018-08-31] MEDS: ICAR-C PO SCH ×2 (08:38→20:52)
[2018-08-31] MEDS: POTASSIUM CHLORIDE 60 MEQ in NS 500 ML IV SCH ×2 (08:39→15:26)
[2018-08-31] MEDS: SODIUM CHLORIDE 0.9% INJ SCH (08:39)
[2018-08-31] MEDS: DULCOLAX PR SCH ×2 (08:39→20:51)
[2018-08-31] MEDS: COREG PO SCH ×2 (08:39→20:52)
[2018-08-31] MEDS: XANAX PO SCH ×2 (08:47→20:52)
--- NOTE | 2018-08-31 15:30 | PROVIDER PROGRESS NOTE ---
Progress Note SUBJECTIVE: No acute overnight events. No N/V/F, CP, SOB, abdominal pain. +BMs. Tolerating diet. OBJECTIVE: GEN: awake, alert, NAD HEENT: anicteric, MMM, EOMI NECK: supple, no jvd CV: RRR, no mrg PULM: CTAB, no crackles ABD: soft NT/ND, NABS EXT: no cce NEURO: nonfocal LABS: 08/31/18 08/31/18 05:18 05:18 WBC 10.99 H Hgb 9.2 L Plt Count 389 Sodium 143 Potassium 3.3 L Chloride 108 H Carbon Dioxide 23 L BUN 4 L Creatinine 0.8 Glucose 47 L A/P: Ms. Melanie Luo is a 47-year-old woman with HTN, HLD, CAD s/p CABG, pacemaker/ICD, insulin-dependent diabetes that is moderately controlled, complicated by peripheral neuropathy who presented with intractable nausea and vomiting consistent with gastroparesis. Course complicated by ICD firing in setting of Torsades. Cardiology following. N/V resolved with supportive treatment. #Gastroparesis: improved; continue alternating compazine and zofran; small, frequent low fat meals, PPI, avoid narcotics #IDDM2: maintain glycemic control #Marijuana abuse: counseled on cessation #Constipation: on bowel regimen #Torsades: resolved; cardiology following, replete lytes prn #Anemia: stable; on iron #Afib: rate controlled; on amiodarone and metoprolol Will follow with you. Please call with questions
--- NOTE | 2018-08-31 18:55 | PROGRESS NOTE ---
DATE: 08/31/2018 SUBJECTIVE: The patient is a lot better, out of the bed with prosthetic leg on the left side. Decrease in nausea and vomiting. 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 OBJECTIVE: On examination temperature is 97 degrees, pulse is 62, blood pressure 115/65, room air 100%. HEENT exam within normal limits. Neck is supple. Chest: Bilateral air entry. Heart sounds are regular. Belly is soft, obese, nontender. Good bowel sounds. No obvious deficits. LABORATORY DATA: CBC: White cell count 10, hematocrit 31.5, platelet count 389,000. Sodium 143, potassium 3.3, chloride 108, BUN 4, creatinine 0.8, glucose 106, magnesium 2.0. ASSESSMENT AND PLAN: 1. gastroparesis stable. Follow up electrolytes. Potassium is low. Replace the potassium. Magnesium is normal. 2. Continue on Cordarone as per Dr. Barillas. 3. Hypokalemia. Replace the potassium today. 4. Poor intravenous access. 5. Diabetes. 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 Advance the diet. Patient on insulin pump. 6. Slowly reconcile home medications and if she continues to improve with the gastroparesis, we will discharge on Sunday. Level of documentation 25 minutes. cc: Bryon Rodrigues MD MTDD
[2018-08-31] MEDS: LOVENOX SUBQ SCH ×2 (20:52→22:50)
[2018-09-01] MEDS: HUMALOG SUBQ SCH ×3 (00:58→09:30)
[2018-09-01] MEDS: LOPRESSOR IV SCH ×2 (01:23→06:00)
[2018-09-01 05:54] LABS: SODIUM 142 mmol/L (136-145)
[2018-09-01 05:55] LABS: AGAP 12; BUN 6 mg/dL (8-22); CALCIUM 9.4 mg/dL (8.8-10.2); CHLORIDE 107 mmol/L (98-107); COSMO 280; CREATININE 0.8 mg/dL (0.5-0.9); ESTIMATED GFR > 60; GLUCOSE 83 mg/dL (70-104); POTASSIUM 4.1 mmol/L (3.5-5.1); TCO2 23 mmol/L (25-35)
[2018-09-01 07:44] VITALS: BP 124/70
--- NOTE | 2018-09-01 08:08 | CARDIOLOGY PROGRESS NOTE ---
DATE: 08/31/2018 SUBJECTIVE: She reports her nausea and vomiting have continued to improve progressively. She has no heart racing. OBJECTIVE: Vital Signs: She is afebrile, heart rate 72, blood pressure 124/73. General: She is in no acute distress. Cardiovascular: She sounds to be in a regular rate and rhythm. She has no murmurs. She has no S3. She has no lower extremity edema. Chest: Sounds clear bilaterally. No increased work of breathing. Abdomen: Soft, nontender. PERTINENT IMAGING AND LABORATORY DATA: Her echocardiogram yesterday showed an ejection fraction of 25% with borderline concentric left ventricular hypertrophy, global hypokinesis. Lab data shows a white count of 10.9, hematocrit is 31, platelet count 389,000. Sodium 143, potassium 3.3, BUN 4, creatinine 0.8. Magnesium level is 2. ASSESSMENT: Ms. Luo is a 47-year-old female who presented with gastroparesis, and subsequently had an episode of torsades. PLAN: She is on amiodarone, which I have decreased to once daily 400 mg. I will start losartan at 25 mg daily considering her history of heart failure as well as diabetes. Her potassium is being repleted. Her magnesium is normal today. Her ejection fraction by echocardiogram was consistent with previous. cc: MD Bryon Calderon MD
[2018-09-01] MEDS: PROTONIX IV SCH (08:42)
[2018-09-01] MEDS: MIRALAX PO SCH (08:42)
[2018-09-01] MEDS: COREG PO SCH (08:43)
[2018-09-01] MEDS: CENTRUM SILVER PO SCH (08:43)
[2018-09-01] MEDS: SODIUM CHLORIDE 0.9% INJ SCH (08:43)
[2018-09-01] MEDS: ICAR-C PO SCH (08:43)
[2018-09-01] MEDS: XANAX PO SCH (08:43)
[2018-09-01] MEDS: DULCOLAX PR SCH (08:44)
[2018-09-01] MEDS ORDERED: COZAAR PO SCH (09:00)
[2018-09-01] MEDS ORDERED: CORDARONE PO SCH (09:00)
--- NOTE | 2018-09-01 10:51 | PROVIDER PROGRESS NOTE ---
Progress Note SUBJECTIVE: No acute overnight events. No complaints. OBJECTIVE: Last Vital Signs Temp 98.1 F 09/01/18 07:43 Pulse 68 09/01/18 07:43 Resp 18 09/01/18 07:43 BP 124/70 09/01/18 07:43 Pulse Ox 100 09/01/18 07:43 Height 5 ft 11 in Weight 258 lb GEN: awake, alert, NAD HEENT: anicteric, MMM, EOMI NECK: supple, no jvd CV: RRR, no mrg PULM: CTAB, no crackles ABD: soft NT/ND, NABS EXT: no cce NEURO: nonfocal LABS: 09/01/18 04:56 Sodium 142 Potassium 4.1 D Chloride 107 Carbon Dioxide 23 L BUN 6 L Creatinine 0.8 Glucose 83 D A/P: Ms. Melanie Luo is a 47-year-old woman with HTN, HLD, CAD s/p CABG, pacemaker/ICD, insulin-dependent diabetes that is moderately controlled, complicated by peripheral neuropathy who presented with intractable nausea and vomiting consistent with gastroparesis exacerbation. Course complicated by ICD firing in setting of Torsades. Cardiology following. N/V resolved with supportive treatment. #Gastroparesis exacerbation: improved; continue alternating compazine and zofran; small, frequent low fat meals, PPI, avoid narcotics #IDDM2: maintain glycemic control #Marijuana abuse: counseled on cessation #Constipation: on bowel regimen #Torsades: resolved; seen by cardiology #Anemia: no overt bleeding; on iron #Afib: rate controlled; on amiodarone and metoprolol #Hypokalemia: resolved OK to be discharged with f/u with Dr. Meneses in 2-4 weeks. Please call with questions
--- NOTE | 2018-09-01 20:44 | DISCHARGE SUMMARY ---
ADMISSION DATE: 08/27/2018 DISCHARGE DATE: 09/01/2018 FINAL DIAGNOSES: 1. Acute diabetic gastroparesis. 2. Reflux esophagitis. 3. Coronary artery disease. 4. Peripheral artery disease. 5. Diabetic neuropathy. 6. Hypertension. 7. Systolic heart failure, chronic. 8. Sleep apnea. This is the first recent [facility] admission for this 47-year-old white female patient of Dr. Rodrigues on insulin pump who came in with complaints of chest discomfort and multiple episodes of vomiting. Pain resolved after morphine and Phenergan. INITIAL LABORATORY: Sodium 136, potassium 3.3, BUN 8, creatinine 0.6, glucose 241, calcium 9.2. Troponin T 0.073, hemoglobin 10.5, hematocrit 35.1, white blood count 14,600 with 82% neutrophils. Urinalysis normal except for some glucose. HOSPITAL COURSE: She was seen by GI and Cardiology. She slowly improved with less nausea. She has a pacemaker defibrillator. She had an episode of torsades and amlodipine was added. Potassium on 08/28 was 3.3. She was given IV potassium and this morning, potassium was 4.1. She ate well this morning and is feeling well. Discussion was made with Dr. Spain regarding GI complaints and she will be followed as an outpatient by him. She is anxious to go home because of a special needs child. She is discharged home on her usual medicine at home plus potassium chloride 10 mEq 1 daily and amiodarone 200 mg 1 daily. She is to see Dr. Rodrigues on Sunday for followup. cc: MD Bryon Dodson MD
--- NOTE | 2018-09-02 07:20 | EKG Report ---
Test Performed on : 08/31/2018 05:53:45 AM Test Reason : torsades Blood Pressure : / mmHG Vent. Rate : 060 BPM Atrial Rate : 060 BPM P-R Int : 240 ms QRS Dur : 126 ms QT Int : 454 ms P-R-T Axes : 016 058 242 degrees QTc Int : 454 ms Atrial-paced rhythm with prolonged AV conduction with frequent premature ventricular complexes. Nonspecific intraventricular block T wave abnormality, consider inferolateral ischemia Abnormal ECG When compared with ECG of 29-AUG-2018 06:59, Electronic atrial pacemaker has replaced Sinus rhythm. Confirmed by Dillon ALEXANDRA, Tramaine Reynolds ([id number]) on 09/02/2018 9:28:02 AM
[2018-09-02] MEDS ORDERED: KLOR-CON PO SCH (09:00)
== END 2018-09-01 11:15 | disposition home or self-care (01) | DRG 74 ==
LOC: ED 15:21 → 4N 21:08 → SUATTDRO 21:08 → EDIPHOLD 08-28 08:06 → 3S 08-28 12:04
PROVIDERS: ADMIT Internal Medicine; ATTEND Internal Medicine
CPT/HCPCS: 71010; 71045; 74019; 74020; 80048; 80053; 80101; 80301; 80307; 80324; 80345; 80346; 80353; 80358; 80361; 80365; 81001; 82150; 82550; 82607; 82728; 82746; 82948; 83036; 83540; 83690; 83735; 83880; 83992; 84100; 84484; 85025; 93005; 93010; 93306; 96361; 96374; 96375; 99285; A9270; C8929; C9113; G0431; G0434; G0479; G0480; J0282; J0360; J0780; J1170; J1650; J2060; J2270; J2405; J2550; J3480; J7030; J7040; J7060; Q9957; S0028; S0164; XXXXX

== ENCOUNTER 2019-01-22 11:34 | Observation (INO) ==
[~2019-01-22 11:34] MED LIST: SODIUM CHLORIDE 0.9% INJ PRN; SODIUM CHLORIDE 0.9% INJ SCH; TORADOL IV PRN
[2019-01-22 12:36] LABS: HEMOGLOBIN A1C 8.5 % (4.8-6.0)
[2019-01-22] MEDS: PHENERGAN IV PRN (12:45)
[2019-01-22] MEDS: APRESOLINE IV PRN ×2 (12:45→21:47)
--- NOTE | 2019-01-22 12:47 | EKG Report ---
Test Performed on : 01/22/2019 12:43:03 PM Test Reason : chest pain Blood Pressure : / mmHG Vent. Rate : 078 BPM Atrial Rate : 078 BPM P-R Int : 198 ms QRS Dur : 128 ms QT Int : 474 ms P-R-T Axes : 062 077 087 degrees QTc Int : 540 ms Sinus rhythm. with occasional premature ventricular complexes. Possible Left atrial enlargement Nonspecific intraventricular block Nonspecific T wave abnormality Abnormal ECG When compared with ECG of 06-SEP-2018 13:24, No significant change was found Confirmed by Froylan ALEXANDRA, Bandar Burton ([id number]) on 01/23/2019 7:42:58 PM
[2019-01-22 12:50] LABS: ALB/GLOB RATIO 1.2; ALBUMIN 4.6 g/dL (3.5-5.0); DIRECT BILIRUBIN 0.2 mg/dL (0.00-0.20); TOTAL BILIRUBIN 0.88 mg/dL (0.20-1.00); TOTAL PROTEIN 8.5 g/dL (6.3-8.3)
[2019-01-22] MEDS: HUMALOG SUBQ SCH ×3 (13:42→21:49)
[2019-01-22] MEDS: PROTONIX IV SCH (14:46)
[2019-01-22] MEDS: NS 1,000 ML IV SCH (14:46)
[2019-01-22] MEDS: DILAUDID IV PRN ×2 (15:47→21:47)
[2019-01-22] MEDS: ZOFRAN IV PRN ×2 (15:47→21:47)
[2019-01-22 20:47] LABS: INR 1.02; PROTIME 13.6 Seconds (11.0-16.0)
[2019-01-22] MEDS: LOVENOX SUBQ SCH (21:47)
--- NOTE | 2019-01-22 22:15 | HISTORY AND PHYSICAL ---
CHIEF COMPLAINT: Intractable nausea and vomiting. HISTORY OF PRESENT ILLNESS: She is a 48-year-old white female with known history of diabetic gastroparesis, last admitted in August. She was seen in our office, admitted directly for uncontrolled blood pressure, impending dehydration. PAST MEDICAL HISTORY: CAD, status post bypass; type 2 diabetes, complicated gastroparesis; peripheral neuropathy; hyperlipidemia; hypertension; sleep apnea; peripheral vascular disease; right cuboid fracture. PAST SURGICAL HISTORY: Permanent pacemaker/AICD; tonsillectomy; bypass surgery; cholecystectomy; uvulopalatopharyngoplasty; tubal ligation; right and left femoral-popliteal bypass; left 2nd toe amputation; revision of left femoral-popliteal bypass cadaveric graft; left BKA; right great toe amputation. MEDICATIONS: Aspirin 325 daily; Coreg 25 p.o. b.i.d.; Plavix 75 daily; Protonix 40 daily; Aldactone 25 p.o. b.i.d.; Carafate 1 tablet t.i.d.; Demadex 20, two tablets b.i.d.; Lipitor 80 daily; isosorbide 60 daily; subcutaneous insulin pump; Cymbalta 60 daily; senna 1 capsule p.o. b.i.d.; MiraLAX 17 g p.o. b.i.d.; Linzess 145 mcg daily; Lyrica 75 p.o. b.i.d.; Zofran as needed; Xanax 0.5 p.o. b.i.d.; potassium 10 mEq daily; erythromycin 250 daily; gabapentin 300 daily; amiodarone 200 daily. ALLERGIES: Reported to Reglan, penicillin and erythromycin base. SOCIAL HISTORY: , one child. Lives in [place]. No smoking. No alcohol. Disabled. FAMILY HISTORY: Father at the age of 36 in a car wreck. Mother with diabetes, hypertension and stroke. HEALTH MAINTENANCE: Flu vaccine in 2018, pneumococcal in 2011. Mammography 01/2018. Pap smear in 2013. REVIEW OF SYSTEMS: HEENT: No headache, no vision problem. No earache. No sore throat. Neck: No goiter. No lymphadenopathy. No bruit. Cardiopulmonary: No chest pain, shortness of breath, PND or orthopnea. Gastrointestinal: Intractable nausea, vomiting and abdominal pain. Genitourinary: No history of hesitancy, frequency or dysuria. Left leg was amputated. Decreased sensory exam in the right foot. No focal symptoms. PHYSICAL EXAMINATION: VITAL SIGNS: On exam, temperature is 98.2 degrees, pulse 93, blood pressure is 200/96. On room air. HEENT: Atraumatic, normocephalic. Pupils equal and react to light. TMs are normal. Nose and throat within normal limits. NECK: Supple. No lymphadenopathy. CHEST: Bilateral air entry. HEART: Sounds are regular. ABDOMEN: Belly is soft, nontender. Good bowel sounds. No signs of peritonitis. EXTREMITIES: Left leg [id number] amputation noted. NEUROLOGIC: No obvious deficits. LABORATORY DATA: PT 13, INR 1.07 A1c 8.5. LFTs were normal. Amylase, lipase were normal. ASSESSMENT AND PLAN: 1. A 48-year-old white female with known history of diabetic gastroparesis, intractable nausea and vomiting. Plan is (1) KUB in the morning. (2) Dilaudid for pain along with Zofran, intravenous Protonix. 2. Type 2 diabetes, off insulin pump. Sliding scale with insulin protocol. 3. Hypertension. We will use hydralazine as needed. 4. Deep venous thrombosis prophylaxis with Lovenox. 5. Gastrointestinal prophylaxis with intravenous Protonix. 6. Check the labs in the morning. 7. Poor intravenous access. Peripherally inserted central catheter line was initiated. 8. Will follow up. cc: Bryon Rodrigues MD MTDD
[2019-01-23] MEDS: NS 1,000 ML IV SCH ×6 (00:07→23:49)
[2019-01-23] MEDS: PHENERGAN IV PRN (02:53)
[2019-01-23] MEDS: ZOFRAN IV PRN ×3 (04:01→18:40)
[2019-01-23] MEDS: DILAUDID IV PRN ×3 (04:02→18:40)
[2019-01-23] MEDS: APRESOLINE IV PRN (04:10)
[2019-01-23 06:39] LABS: BASO# 0.02 X1000 (0.0-0.2); BASO% 0.1 % (0.0-0.8); HEMOGLOBIN 11.2 g/dL (12.0-16.0); IMM GRAN# 0.04 X1000 (0.0-0.04); IMM GRAN% 0.3 % (0.0-0.5); LYMPH# 1.26 X1000 (1.2-3.4); LYMPH% 8.6 % (20.5-51.1); MCH 21.4 PG (27-31); MCHC 30.3 g/dL (33-37); MCV 70.7 FL (81-99); MONO# 0.82 X1000 (0.11-0.59); MONO% 5.6 % (1.7-9.3); MPV 11.3 FL (7.4-10.4); NEUT# 12.57 X1000 (1.4-6.5); NEUT% 85.4 % (42.2-75.2); PLT 346 X1000 (130-400); RBC 5.23 XMIL (4.2-5.4); RDW 18.3 % (11.5-14.5); WBC 14.71 X1000 (4.8-10.8)
[2019-01-23 06:44] LABS: POTASSIUM 3.4 mmol/L (3.5-5.1)
[2019-01-23] MEDS: HUMALOG SUBQ SCH ×4 (07:13→22:04)
--- NOTE | 2019-01-23 07:46 | Diag Imaging Result Doc PS360 ---
EXAM: KUB ABDOMEN INDICATION: constipation TECHNIQUE: 2 views COMPARISON: 08/27/2018 FINDINGS: There is a fair amount stool in the colon which may indicate mild constipation. There is no obstructive bowel pattern. There is no evidence of large volume free abdominal gas. There are lumbar degenerative changes. IMPRESSION: Possible mild constipation. Electronically signed by Morgan Angel 01/23/2019 7:44 AM
[2019-01-23] MEDS ORDERED: NS 250 ML ONE (09:12)
[2019-01-23] MEDS: PROTONIX IV SCH (10:13)
[2019-01-23] MEDS ORDERED: POTASSIUM CHLORIDE 40 MEQ/SWI 40 MEQ/100 ML IVPB IV ONE (20:18)
--- NOTE | 2019-01-23 20:34 | PROGRESS NOTE ---
DATE: 01/23/2019 SUBJECTIVE: The patient has a PICC line placed on the left side. Complains of not able to pee. Bladder scan this afternoon, 1000 mL straight catheterization was in and out. Decrease in nausea and vomiting, as well as blood pressure. REVIEW OF SYSTEMS: None reported. OBJECTIVE: Temperature is 98.2 degrees, pulse 92. Vitals are stable.HEENT: Within normal limits. Neck: Supple. AICD on the left side. PICC line on the left side noted. Chest: Clear. Heart sounds are regular. Belly is soft, nontender, obese. Status post below-knee amputation on the left side noted. LABORATORY: White cell count 14.71, hematocrit 37, platelets 346,000. Sodium 136, potassium 3.4, chloride 99, BUN 14, creatinine 1.0, glucose 230. Liver function tests were normal. Amylase, lipase was normal. ASSESSMENT AND PLAN: 1. Diabetic gastroparesis, stable. Advance the to clear liquid. Change the Zofran q.4. 2. Poor intravenous access. Peripherally inserted central catheter line on the left side. 3. Hypertension, stable. 4. Continue intravenous fluids. 5. Hypokalemia. Replace the potassium. 6. Bladder retention. Straight catheterization, in and out. Continue to monitor. As she tolerates the liquid diet, we will slowly reconcile home medications and will check the labs in the morning. LEVEL OF DOCUMENTATION: 25 minutes. cc: Bryon Rodrigues MD
[2019-01-23] MEDS: LOVENOX SUBQ SCH (22:03)
[2019-01-24 06:03] LABS: BASO# 0.05 X1000 (0.0-0.2); BASO% 0.5 % (0.0-0.8); EOS# 0.14 X1000 (0.0-0.7); EOS% 1.4 % (0.0-10.0); HEMATOCRIT 33.3 % (37.0-47.0); HEMOGLOBIN 9.8 g/dL (12.0-16.0); IMM GRAN# 0.03 X1000 (0.0-0.04); IMM GRAN% 0.3 % (0.0-0.5); LYMPH# 3.33 X1000 (1.2-3.4); LYMPH% 32.5 % (20.5-51.1); MCH 21.3 PG (27-31); MCHC 29.4 g/dL (33-37); MCV 72.2 FL (81-99); MONO# 0.93 X1000 (0.11-0.59); MONO% 9.1 % (1.7-9.3); MPV 10.8 FL (7.4-10.4); NEUT# 5.77 X1000 (1.4-6.5); NEUT% 56.2 % (42.2-75.2); PLT 324 X1000 (130-400); RBC 4.61 XMIL (4.2-5.4); RDW 18.5 % (11.5-14.5); WBC 10.25 X1000 (4.8-10.8)
[2019-01-24 06:24] LABS: CALCIUM 8.4 mg/dL (8.8-10.2); POTASSIUM 3.4 mmol/L (3.5-5.1)
[2019-01-24] MEDS: ZOFRAN IV PRN ×2 (06:32→17:35)
[2019-01-24] MEDS: HUMALOG SUBQ SCH ×3 (06:32→17:46)
[2019-01-24] MEDS ORDERED: POTASSIUM CHLORIDE 40 MEQ/SWI 40 MEQ/100 ML IVPB IV ONE (08:00)
[2019-01-24] MEDS: PROTONIX IV SCH (11:08)
[2019-01-24] MEDS: NS 1,000 ML IV SCH ×2 (11:09→12:37)
[2019-01-24 15:30] VITALS: BP 143/71
[2019-01-24] MEDS: DILAUDID IV PRN (17:35)
--- NOTE | 2019-01-26 11:34 | DISCHARGE SUMMARY ---
ADMISSION DATE: 01/22/2019 DISCHARGE DATE: 01/24/2019 DISCHARGING DIAGNOSIS: Intractable nausea and vomiting due to diabetic gastroparesis exacerbating with chronic cannabis syndrome. SECONDARY DIAGNOSES: 1. Coronary artery disease, status post bypass surgery, status post automatic implantable cardioverter defibrillator. 2. Type 2 diabetes. 3. Complications of diabetes which include gastroparesis, neuropathy, macroangiopathy. 4. Hypertension. 5. Sleep apnea. 6. Peripheral arterial disease. PROCEDURES: PICC line on the left side. BRIEF HISTORY: Please see the H and P that was done on 01/22/2019. In brief, she is a 48-year- old, white female, chronically sick patient with the above problems. Came in with intractable nausea, vomiting, abdominal pain. The patient was started on a PICC line. Given IV fluids. Replaced the potassium. The patient was counseled not to use any chronic cannabinoid use. She was given Dilaudid and Zofran. IV Protonix was given. The patient slowly advanced the diet. Followup KUB did not show any constipation, other than ileus. She also has bladder retention, drained 1000 mL. Subsequently, she is emptying her bladder. She is anxious to go home and I advised the patient to keep her PICC line for a while and then we will discharge her home in a guarded condition. LABS: CBC: White cell count 10, hematocrit 33, platelets 324,000. Sodium 134, potassium 3.4, chloride 101, BUN 16, creatinine 1.0, glucose 245. DISCHARGE INSTRUCTIONS: 1. Aspirin 325 daily, Coreg 25 p.o. b.i.d., Protonix 40 daily, Aldactone 25 p.o. b.i.d., Lipitor 80 mg daily, isosorbide 60 daily, subcutaneous insulin pump, Cymbalta 60 daily, senna as directed, MiraLAX was 17 g daily, Zofran as needed for nausea, Xanax 0.5 p.o. b.i.d., potassium 10 mEq daily, erythromycin 250 daily, gabapentin 300 daily, amiodarone 200 daily, Carafate 1 g p.o. t.i.d. 2. Follow up in my office in 10 days. cc: Bryon Rodrigues MD
== END 2019-01-24 19:24 | disposition home or self-care (01) ==
LOC: DIRADM → EDIPHOLD 11:34 → 2N 14:05
PROVIDERS: ADMIT Internal Medicine; ATTEND Internal Medicine

== ENCOUNTER 2019-01-25 14:30 | Inpatient (IN) ==
[2019-01-25] MEDS ORDERED: NS 1,000 ML IV ONE (14:51)
[2019-01-25] MEDS ORDERED: ZOFRAN IV ONE ×3 (14:51→18:47)
--- NOTE | 2019-01-25 14:53 | PROVIDER DOCUMENTATION ---
HPI-Abdominal Pain/GI Problem - General Chief Complaint: Abdominal Pain Stated Complaint: CP,ABD PAIN Time Seen by Provider: 01/25/19 14:41 Source: patient Allergies/Adverse Reactions: Patient Allergies Allergy/AdvReac Type Severity Reaction Status Date / Time metoclopramide HCl * Allergy Severe ANAPHYLAXIS Verified 01/25/19 14:50 [From Reglan] Penicillins Allergy Intermediate RASH Verified 01/25/19 14:50 erythromycin base Allergy RASH Verified 01/25/19 14:50 Home Medications: Home Medication List Medication Instructions Recorded Confirmed Last Taken Type Aspirin 325 mg PO DAILY 11/25/17 01/25/19 08/27/18 08:00 History Atorvastatin Calcium [Lipitor] 1 tab PO HS 11/25/17 01/25/19 08/26/18 20:00 History Carvedilol 25 mg PO BID 11/25/17 01/25/19 08/27/18 08:00 History Isosorbide Mononitrate E.r. [Imdur] 60 mg PO DAILY 11/25/17 01/25/19 08/27/18 08:00 History Pantoprazole Sodium [Protonix] 40 mg PO DAILY 11/25/17 01/25/19 08/27/18 08:00 History Spironolactone 1 tab PO BID 11/25/17 01/25/19 08/27/18 08:00 History Subcutaneous Insulin Pump [Insulin 1 each MC DIRECTED 11/25/17 01/25/19 08/28/18 12:00 History Pump] Duloxetine [Cymbalta] 60 mg PO DAILY capsule 11/29/17 01/25/19 08/27/18 08:00 Rx Polyethylene Glycol 3350 [Miralax] 17 gm PO BID 02/01/18 01/25/19 08/27/18 08:00 History Sennosides/Docusate Sodium 1 each PO BID 02/01/18 01/25/19 08/27/18 08:00 History [Senna-S Laxative Tablet] Ondansetron Odt [Zofran Odt] 4 mg PO Q6H PRN PRN #30 tab 04/30/18 01/25/19 08/27/18 12:00 Rx Alprazolam 0.5 mg PO BID 08/28/18 01/25/19 08/26/18 20:00 History Potassium Chloride E.r. [Klor-Con] 10 meq PO DAILY #30 tab 09/01/18 01/25/19 Unknown Rx Amiodarone [Cordarone] 200 mg PO DAILY 01/22/19 01/25/19 Unknown History Erythromycin Stearate [Erythrocin] 250 mg PO DAILY 01/22/19 01/25/19 Unknown History Gabapentin 300 mg PO DAILY 01/22/19 01/25/19 Unknown History Promethazine/Dextromethorphan 473 ml PO DIRECTED 01/22/19 01/25/19 Unknown History [Promethazine-Dm Syrup] Valacyclovir HCl [Valacyclovir] 1,000 mg PO DAILY 01/22/19 01/25/19 Unknown History Sucralfate [Carafate] 1 gm PO TID 01/23/19 01/25/19 Unknown History - History of Present Illness-ABD Nature of Presenting Problems: 48 yr old F, hx of gastroparesis, type 2 DM, CAD s/p bypass with pacemaker, presenting with sudden onset abdominal pain, nausea, vomiting. The pt was di scharged from the hospital yesterday after being treated for intractable nausea and vomiting. She reports that she woke up this morning with abdominal pain and shortly thereafter began throwing up. Mostly clear contents. She also reported developing chest pain, more left sided, radiating into her back, dull and pressure-like. Abdominal Pain Onset Location: reports: generalized abdomen Review of Systems - Adult - REVIEW OF SYSTEMS - ADULT Constitutional: reports: no symptoms reported Eyes: reports: no symptoms reported Ears, Nose, Mouth & Throat: reports: no symptoms reported Cardiovascular: reports: chest pain Respiratory: reports: no symptoms reported Gastrointestinal: reports: abdominal pain, nausea, vomiting Genitourinary: reports: no symptoms reported Musculoskeletal: reports: no symptoms reported Integumentary: reports: no symptoms reported Neurological: reports: no symptoms reported Psychiatric: reports: no symptoms reported Endocrine: reports: no symptoms reported Hematologic/Lymphatic: reports: no symptoms reported Past History - Adult - PAST MEDICAL HISTORY-ADULT Review of Records: reports: Old Records Reviewed, Nursing Assessment Review Major Childhood Illnesses: reports: denies history Cardiovascular: reports: CAD, HTN, hyperlipidemia, SD, pacemaker Respiratory: reports: denies history Gastrointestinal: reports: other Obstetrical/Gynecological: reports: other Genitourinary: reports: denies history Musculoskeletal: reports: denies history Neurological: reports: denies history Psychiatric: reports: depression Endocrine/Immune: reports: Diabetes Other Conditions: reports: denies history - PRIOR SURGERIES/PROCEDURES Surgical/Procedure History: reports: CABG, cholecystectomy, pacemaker, BTL, C- section, tonsillectomy, other - IMMUNIZATION STATUS Childhood Immunizations: See Nurse Assessment Flu Vaccine: See Nurse Assessment - FAMILY HISTORY Family History: reviewed, not pertinent Physical Exam-General - PHYSICAL EXAM-ADULT Initial Vital Signs Reviewed: Yes - CONSTITUTIONAL General Appearance: alert, moderate distress - EYES Eyes: PERRL/EOMI - HEAD, EARS, NOSE, MOUTH & THROAT HENMT: normocephalic/atraumatic, moist mucous membranes - RESPIRATORY Respiratory: lungs clear, normal breath sounds - CARDIOVASCULAR Cardiovascular: regular rate, rhythm - GASTROINTESTINAL (ABDOMEN) Abdominal Exam: normal bowel sounds, tenderness - MUSCULOSKELETAL Extremity: other (left BKA) - SKIN Integumentary: warm/dry - PSYCHIATRIC Psych/Mental Status: oriented x 3, anxious Progress - PLAN OF CARE/RESULTS Progress/Plan/Lab Results: Vital Signs - 8 hr 01/25/19 14:34 Temperature 97.9 F Pulse Rate 87 Respiratory Rate 26 H Blood Pressure 193/89 O2 Sat by Pulse Oximetry 99 Laboratory Results - last 24 hr 01/25/19 14:44 POC Glucose 162 H Orders Category Date Time Status CBC WITH ELECTRONIC DIFF [HEME] Stat Lab 01/25/19 14:51 Uncollected COMPREHENSIVE METABOLIC PANEL [CHEM] Stat Lab 01/25/19 14:51 Uncollected URINALYSIS W/POSS RFLX CULT [URINALYSIS] Stat Lab 01/25/19 14:52 Uncollected Ns 1000 ml IV Bolus X1 Med 01/25/19 14:51 Ordered 0.9% Sodium Chloride Inj [Ns] 1,000 ml IV 999 mls/hr Ondansetron [Zofran] Med 01/25/19 14:51 Once 8 mg IV NOW ONE Result Diagrams: 01/25/19 15:07 01/25/19 15:07 - EKG 1 Time of EKG reading by physician:: 14:49 EKG Read and Signed by:: Ricky Murdock EKG Interpretation (*Must complete 3 of following elements*): Abnormal Rate: 81 Rhythm: sinus with PVCs [place]: normal QRS: other ME Interval: normal ST Wave: non-specific ST changes - CONSULTS/PCP/HOSPITALIST Notification #1 *Consult/PCP/Hospitalist*: Dr. Wadsworth for Dr. Rodrigues Time Discussed: 18:00 Consult Disposition: Admit Departure - Departure Date of Disposition Decision: 01/25/19 Time of Disposition Decision: 21:09 DIAGNOSIS: Vomiting Qualifiers: Vomiting Intractability: intractable Nausea presence: with nausea Disposition: ADMITTED INPATIENT Certified Medical Emergency: Emergent Condition: Fair - Critical Care Note This patient required my direct & personal management of CC.: No Attestation - Physician/ JANNET Attestation Patient care was provided by Advanced Practice Provider:: No The physician spent face to face time with patient:: Yes Advanced Practice Provider documentation review:: Supervising physician onsite and consulted in the evaluation and care of this patient. The physician did have a face to face encounter with the patient.
[2019-01-25] MEDS ORDERED: NITROGLYCERIN TOP ONE ×2 (14:58→18:49)
[2019-01-25] MEDS ORDERED: APRESOLINE IV ONE ×2 (15:01→16:55)
[2019-01-25] MEDS ORDERED: PROTONIX IV ONE (15:02)
[2019-01-25] MEDS ORDERED: SODIUM CHLORIDE 0.9% INJ ONE (15:02)
[2019-01-25] MEDS ORDERED: BENTYL IM ONE (15:03)
[2019-01-25 15:27] LABS: INR 0.97
[2019-01-25 15:28] LABS: PTT 26.8 Seconds (22.3-41.8)
[2019-01-25 15:31] LABS: URINE SOURCE CLEAN CATCH
[2019-01-25 15:35] LABS: BILIRUBIN URINE NEGATIVE (NEGATIVE); BLOOD URINE NEGATIVE (NEGATIVE); COLOR STRAW; GLUCOSE URINE 200 mg/dL (NEGATIVE); KETONE URINE 40 mg/dL (NEGATIVE); LEUKOCYTES URINE NEGATIVE (NEGATIVE); NITRITE URINE NEGATIVE (NEGATIVE); PH URINE 6.5; PROTEIN URINE NEGATIVE (NEGATIVE); TURBIDITY URINE CLEAR (CLEAR); UR EPITHELIAL CELLS <10 /HPF (<10); URINE BACTERIA NEGATIVE /HPF; URINE RBC <10 /HPF (<10); URINE WBC <10 /HPF (<10); UROBILINOGEN URINE NORMAL (NORMAL)
[2019-01-25 15:40] LABS: BASO# 0.03 X1000 (0.0-0.2); BASO% 0.2 % (0.0-0.8); EOS# 0.06 X1000 (0.0-0.7); EOS% 0.4 % (0.0-10.0); HEMATOCRIT 35.4 % (37.0-47.0); HEMOGLOBIN 10.8 g/dL (12.0-16.0); IMM GRAN# 0.03 X1000 (0.0-0.04); IMM GRAN% 0.2 % (0.0-0.5); LYMPH# 1.59 X1000 (1.2-3.4); LYMPH% 10.1 % (20.5-51.1); MCH 21.6 PG (27-31); MCHC 30.5 g/dL (33-37); MCV 70.7 FL (81-99); MONO# 0.48 X1000 (0.11-0.59); MONO% 3.1 % (1.7-9.3); MPV 10.7 FL (7.4-10.4); PLT 332 X1000 (130-400); RBC 5.01 XMIL (4.2-5.4); RDW 18.7 % (11.5-14.5); WBC 15.69 X1000 (4.8-10.8)
[2019-01-25 15:47] LABS: AGAP 16; ALB/GLOB RATIO 1.4; ALBUMIN 4.3 g/dL (3.5-5.0); ALKALINE PHOSPHATASE 52 U/L (32-104); BUN 6 mg/dL (8-22); CALCIUM 9.2 mg/dL (8.8-10.2); CHLORIDE 102 mmol/L (98-107); CK PROFILE 125 U/L (24-173); COSMO 274; CREATININE 0.7 mg/dL (0.5-0.9); ESTIMATED GFR > 60; GLUCOSE 174 mg/dL (70-104); GOT 14 U/L (10-30); GPT 11 U/L (10-36); POTASSIUM 3.8 mmol/L (3.5-5.1); SODIUM 136 mmol/L (136-145); TCO2 18 mmol/L (25-35); TOTAL BILIRUBIN 0.48 mg/dL (0.20-1.00); TOTAL PROTEIN 7.4 g/dL (6.3-8.3)
[2019-01-25 15:50] LABS: UR AMPHETAMINES QUAL NONE DETECTED (NONE DETECT); UR BARBITUATES QUAL NONE DETECTED (NONE DETECT); UR BENZODIAZEPIN QUAL NONE DETECTED (NONE DETECT); UR CANNABINOIDS QUAL PRESUMPTIVE POSITIVE (NONE DETECT); UR COCAINE QUAL NONE DETECTED (NONE DETECT); UR METHADONE QUAL NONE DETECTED (NONE DETECT); UR OPIATES QUAL NONE DETECTED (NONE DETECT); UR OXYCODONE QUAL NONE DETECTED (NONE DETECT); UR PCP QUAL NONE DETECTED (NONE DETECT)
[2019-01-25] MEDS ORDERED: DILAUDID IV ONE ×3 (16:03→18:47)
--- NOTE | 2019-01-25 16:45 | Diag Imaging Result Doc PS360 ---
EXAM: CT ABDOMEN/PELVIS W/O CONTRAST INDICATION: abdominal pain TECHNIQUE: This exam was performed using automated exposure control, adjustment of mA or kV according to patient size, and/or use of iterative reconstruction technique. COMPARISON: None. FINDINGS: There is interstitial thickening and mild groundglass opacity at both lung bases suggesting edema. There has been a prior cholecystectomy. The liver, spleen, pancreas, and adrenal glands are essentially unremarkable. There are no renal or ureteral stones and there is no hydronephrosis. The kidneys are grossly unremarkable, otherwise. The urinary bladder is partially distended and is grossly unremarkable as imaged. The reproductive tract is unremarkable as imaged. The appendix is normal. There is mild uncomplicated sigmoid colonic diverticulosis. No focal bowel wall thickening or bowel obstruction is identified. There is a small hiatal hernia. The remainder of the GI tract is grossly unremarkable. There is a moderate to large sized infraumbilical ventral abdominal wall hernia containing only mesenteric fat. There is mild soft tissue edema in the subcutaneous tissue overlying the hernia. There is no mesenteric edema. Otherwise, no focal inflammatory changes, free abdominal gas, or free fluid is identified. There is aortoiliac atherosclerotic calcification. There is no evidence of acute osseous abnormality. IMPRESSION: 1.Moderate to large size infraumbilical ventral abdominal wall hernia that contains only mesenteric fat and no bowel. Although there is mild subcutaneous soft tissue edema overlying the hernial sac. No mesenteric edema is appreciated. 2.Suggestion of mild edema at the lung bases. 3.Other incidental/nonacute findings detailed above. Electronically signed by Morgan Angel 01/25/2019 4:42 PM
--- NOTE | 2019-01-25 17:31 | Diag Imaging Result Doc PS360 ---
EXAM: CHEST-2 VIEWS INDICATION: chest pain TECHNIQUE: 2 views COMPARISON: 09/06/2018 FINDINGS: The patient is slightly rotated. The central vasculature appears mildly prominent suggesting mild pulmonary venous congestion. The lungs are grossly clear, otherwise. There is no discrete pleural fluid collection or pneumothorax. Cardiac silhouette is unremarkable. The pacemaker is in stable position. IMPRESSION: Suggestion of mild pulmonary venous congestion. Electronically signed by Morgan Angel 01/25/2019 5:29 PM
[2019-01-25] MEDS ORDERED: ATIVAN IV ONE ×2 (18:49→19:03)
[2019-01-25] MEDS ORDERED: LOPRESSOR 10 MG in NS 50 ML IV ONE (19:14)
[2019-01-25] MEDS ORDERED: APRESOLINE IV PRN (19:16)
[2019-01-25] MEDS ORDERED: VASOTEC IV ONE (19:17)
[2019-01-25] MEDS ORDERED: XYLOCAINE 2% VISCOUS MT ONE (19:22)
--- NOTE | 2019-01-25 20:02 | EKG Report ---
Test Performed on : 01/25/2019 6:36:54 PM Test Reason : CP Blood Pressure : / mmHG Vent. Rate : 099 BPM Atrial Rate : 099 BPM P-R Int : 180 ms QRS Dur : 122 ms QT Int : 400 ms P-R-T Axes : 036 061 089 degrees QTc Int : 513 ms Normal sinus rhythm. Possible Left atrial enlargement Nonspecific intraventricular conduction delay Nonspecific ST and T wave abnormality Abnormal ECG When compared with ECG of 25-JAN-2019 14:46, (Unconfirmed) premature ventricular complexes. are no longer present Nonspecific T wave abnormality no longer evident in Inferior leads Unconfirmed Result
--- NOTE | 2019-01-25 20:18 | HISTORY AND PHYSICAL ---
CHIEF COMPLAINT: Chest pain and upper abdominal pain. PRESENT ILLNESS: This is one of several recent [facility] admissions for this 48-year-old white female patient of Dr. Rodrigues, who was discharged yesterday, but this morning awoke with epigastric abdominal pain and vomiting. She presented to the emergency room. She also complained with chest pain and shortness of breath. There is history of coronary artery disease, stents and internal defibrillator. She was given nitroglycerin, Zofran and Dilaudid in the emergency room, with minimal relief. Discussion was made with the emergency room physician. Her white blood count was elevated at 15,700. Hematocrit was 35. Basic metabolic profile was normal except for sugars of 174. Liver functions were normal. CPK was 125 and troponin less than 0.01. EKG showed some widening of QRS complex, different from her recent admission. She was admitted to the 2nd floor on telemetry for further evaluation and treatment. She had an echocardiogram recently, and within the last year had a cardiac catheterization showing multiple vessel disease. PAST MEDICAL HISTORY: Admitted 01/22 through 01/24 with gastroparesis and diabetes. CURRENT MEDICATIONS: Amiodarone 200 mg daily, aspirin 325 mg 1 daily, atorvastatin 80 mg 1 daily, carvedilol 25 mg b.i.d., Cymbalta 60 mg daily, gabapentin 300 mg daily, Protonix 40 mg daily, MiraLAX b.i.d., potassium ER 10 mEq 1 daily, docusate b.i.d., spironolactone 25 mg b.i.d., insulin pump, sucralfate 1 g t.i.d., valacyclovir 1000 mg daily. ALLERGIES: Reglan, penicillin and erythromycin. REVIEW OF SYSTEMS: Significant for nausea and vomiting, gastroparesis, abdominal pain, ventral abdominal hernia containing only mesenteric fat. SOCIAL HISTORY: There is no history of recent alcohol usage or smoking. PHYSICAL EXAMINATION: VITAL SIGNS: Temperature 98 degrees, heart rate 98, respiratory rate 16, blood pressure 199/102, O2 saturation 94% on nasal oxygen. GENERAL: The patient is a well-developed, well-nourished obese white female in moderate distress, with epigastric and substernal chest pain. HEENT: Pupils equal, round and reactive to light. Tympanic membranes without inflammation. Pharynx benign with no erythema or exudate. NECK: Supple, with no mass or lymphadenopathy. HEART: Occasionally irregular. Monitor showing PVCs. There is no murmur or gallop. LUNGS: Decreased breath sounds at the lung bases. Recent chest x-ray showed mild pulmonary edema. ABDOMEN: Epigastric tenderness with no mass or organomegaly. EXTREMITIES: No cyanosis, clubbing or edema. RECTAL/GENITALIA: Deferred. NEUROLOGICAL: Anxious and in moderate distress, with epigastric and substernal chest pain. IMPRESSION: 1. Chest pain. 2. Coronary artery disease. 3. Gastroparesis. 4. Acute gastritis. 5. Volume depletion. 6. Leukocytosis. 7. Ventral abdominal hernia. 8. Widened QRS complex on electrocardiogram, change from previous. PLAN: Admit to 2nd floor for monitoring and further evaluation. cc: MD Bryon Dodson MD
[2019-01-25] MEDS ORDERED: PATIENT'S OWN MED INJ SCH (20:45)
[2019-01-25] MEDS: COREG PO SCH (21:28)
[2019-01-25] MEDS: LIPITOR PO SCH (21:28)
[2019-01-25] MEDS: PERICOLACE PO SCH (21:28)
[2019-01-25] MEDS: ALDACTONE PO SCH (21:29)
[2019-01-25] MEDS: MIRALAX PO SCH ×2 (21:29→21:44)
[2019-01-26] MEDS: NITROGLYCERIN TOP SCH ×4 (00:27→18:07)
[2019-01-26] MEDS: ZOFRAN IV PRN ×3 (06:41→21:28)
[2019-01-26] MEDS: KLOR-CON PO SCH (08:30)
[2019-01-26] MEDS: MIRALAX PO SCH ×2 (08:32→21:25)
[2019-01-26] MEDS: CYMBALTA PO SCH (08:33)
[2019-01-26] MEDS: VALTREX PO SCH (08:33)
[2019-01-26] MEDS: NEURONTIN PO SCH (08:33)
[2019-01-26] MEDS: ALDACTONE PO SCH ×2 (08:33→21:20)
[2019-01-26] MEDS: ASPIRIN PO SCH (08:33)
[2019-01-26] MEDS: PERICOLACE PO SCH ×2 (08:33→21:24)
[2019-01-26] MEDS: CORDARONE PO SCH (08:33)
[2019-01-26] MEDS: CARAFATE PO SCH ×3 (08:33→16:26)
[2019-01-26] MEDS: COREG PO SCH ×2 (08:33→21:20)
--- NOTE | 2019-01-26 08:52 | EKG Report ---
Test Performed on : 01/25/2019 2:46:45 PM Test Reason : CP Blood Pressure : / mmHG Vent. Rate : 081 BPM Atrial Rate : 081 BPM P-R Int : 176 ms QRS Dur : 118 ms QT Int : 402 ms P-R-T Axes : 046 070 029 degrees QTc Int : 466 ms Sinus rhythm. with occasional premature ventricular complexes. Possible Left atrial enlargement Incomplete left bundle branch block Nonspecific ST and T wave abnormality Prolonged QT Abnormal ECG When compared with ECG of 22-JAN-2019 12:43, Nonspecific T wave abnormality now evident in Inferior leads QT has shortened Unconfirmed Result
[2019-01-26] MEDS ORDERED: PROTONIX PO SCH (09:00)
--- NOTE | 2019-01-26 09:02 | PROGRESS NOTE ---
DATE: 01/26/2019 SUBJECTIVE: The patient is feeling much better this morning, without nausea or abdominal pain. Cardiac studies are unremarkable. Her PVCs present yesterday have resolved. She is calm without anxiety at this time. OBJECTIVE: Vital Signs: Temperature 97.3 degrees, heart rate 74, respirations 16, blood pressure 135/66, O2 saturation on room air 100%. Chest: Clear. Abdomen: Soft. Extremities: She has a PICC line in her left upper arm. PLAN: Ambulate. Restart diet. If she continues to do well through the day, there is a possibility of going home tomorrow. cc: MD Bryon Dodson MD
[2019-01-26] MEDS: DILAUDID IV PRN (13:49)
[2019-01-26] MEDS: LIPITOR PO SCH (21:19)
[2019-01-27] MEDS: NITROGLYCERIN TOP SCH ×4 (01:18→20:30)
[2019-01-27] MEDS: ZOFRAN IV PRN ×3 (08:10→18:18)
[2019-01-27] MEDS: DILAUDID IV PRN ×2 (08:10→20:31)
[2019-01-27] MEDS: PERICOLACE PO SCH ×2 (10:04→20:31)
[2019-01-27] MEDS: KLOR-CON PO SCH (10:04)
[2019-01-27] MEDS: COREG PO SCH ×2 (10:04→20:31)
[2019-01-27] MEDS: NEURONTIN PO SCH (10:04)
[2019-01-27] MEDS: CYMBALTA PO SCH (10:04)
[2019-01-27] MEDS: ALDACTONE PO SCH ×2 (10:04→20:31)
[2019-01-27] MEDS: CORDARONE PO SCH (10:04)
[2019-01-27] MEDS: CARAFATE PO SCH ×3 (10:04→20:31)
[2019-01-27] MEDS: VALTREX PO SCH (10:04)
[2019-01-27] MEDS: NS 1,000 ML IV SCH (10:05)
[2019-01-27] MEDS: MIRALAX PO SCH ×2 (10:08→20:30)
[2019-01-27] MEDS: ERYTHROCIN PO SCH (10:42)
[2019-01-27] MEDS: NEXIUM IV SCH (13:10)
[2019-01-27] MEDS: SODIUM CHLORIDE 0.9% INJ SCH (13:10)
[2019-01-27] MEDS: ASPIRIN PO SCH (13:11)
[2019-01-27] MEDS: LIPITOR PO SCH (20:30)
--- NOTE | 2019-01-27 21:40 | PROGRESS NOTE ---
DATE: 01/27/2019 SUBJECTIVE: The patient was readmitted on Sunday after discharging on Sunday with abdominal pain, nausea, vomiting. A CT scan was done. The patient has a PICC line on the left side. REVIEW OF SYSTEMS: Still has nausea, belching, burping. PHYSICAL EXAMINATION: Vital Signs: Temperature is 98.8 degrees, pulse 70, blood pressure is stable. HEENT: Within normal limits. Neck: Supple. Chest: Bilateral air entry. Heart: Sounds are regular. Abdomen: Belly is soft, obese, nontender. Extremities: Status post below- knee amputation. LABS: None reported. Urine toxic positive for THC. CT scan of the abdomen and pelvis: Moderate large sized infraumbilical ventral hernia which contains mesenteric fat. No bowel edema noted. ASSESSMENT AND PLAN: 1. Nausea and vomiting due to gastroparesis. Continue low dose intravenous fluids, intravenous hydromorphone, Zofran, and continue on Carafate, and started on erythromycin. Continue on proton pump inhibitor. 2. Diabetes, on insulin pump. 3. Peripherally inserted central catheter line on the left side. 4. Reconcile home medications. 5. Continue on MiraLAX. 6. Discussed with the patient use of marijuana. 7. Discussed the plan of care with family at bedside. LEVEL OF DOCUMENTATION: 25 minutes. cc: Bryon Rodrigues MD
[2019-01-28] MEDS: ZOFRAN IV PRN ×3 (01:02→22:48)
[2019-01-28] MEDS: NITROGLYCERIN TOP SCH ×4 (03:02→22:49)
[2019-01-28] MEDS: NS 1,000 ML IV SCH (04:46)
[2019-01-28] MEDS: COREG PO SCH ×2 (09:25→22:48)
[2019-01-28] MEDS: NEXIUM IV SCH (09:25)
[2019-01-28] MEDS: SODIUM CHLORIDE 0.9% INJ SCH (09:25)
[2019-01-28] MEDS: VALTREX PO SCH (09:25)
[2019-01-28] MEDS: NEURONTIN PO SCH (09:25)
[2019-01-28] MEDS: ERYTHROCIN PO SCH (09:26)
[2019-01-28] MEDS: CARAFATE PO SCH ×3 (09:26→22:47)
[2019-01-28] MEDS: ALDACTONE PO SCH ×2 (09:26→22:47)
[2019-01-28] MEDS: CYMBALTA PO SCH (09:26)
[2019-01-28] MEDS: PERICOLACE PO SCH ×2 (09:26→22:47)
[2019-01-28] MEDS: MIRALAX PO SCH ×2 (09:26→22:49)
[2019-01-28] MEDS: KLOR-CON PO SCH (09:26)
[2019-01-28] MEDS: CORDARONE PO SCH (09:26)
[2019-01-28] MEDS: ASPIRIN PO SCH (09:26)
[2019-01-28] MEDS: DILAUDID IV PRN (18:35)
--- NOTE | 2019-01-28 20:29 | PROGRESS NOTE ---
DATE: 01/28/2019 SUBJECT: The patient is a little bit burping, decreased nausea, slight belly pain. REVIEW OF SYSTEMS: None reported. PHYSICAL EXAMINATION: Temperature is 97.9 degrees, pulse 78, blood pressure is 138/51.HEENT: Within normal limits. Neck: Supple. No lymphadenopathy. Chest: Bilateral air entry. Heart: Sounds are regular. Belly: Soft, nontender. Large ventral hernia noted. Blood sugar is doing well. ASSESSMENT AND PLAN: 1. Diabetic gastroparesis. Is continue on present treatment. 2. Ventral hernia, stable. 3. Bladder retention. Continue to monitor postvoid residual urine. Continue present treatment. Continue on Erythrocin for gastroparesis and started on simethicone for burping. She thinks she gets nauseous more in the morning after using a CPAP machine. Tonight I asked the patient stop using CPAP as it does not make any difference or not and will follow up. LEVEL OF DOCUMENTATION: 25 minutes. cc: Bryon Rodrigues MD MTDD
[2019-01-28] MEDS: LIPITOR PO SCH (22:47)
[2019-01-28] MEDS: MYLICON PO PRN (22:48)
[2019-01-29] MEDS: NS 1,000 ML IV SCH ×2 (00:31→20:48)
[2019-01-29] MEDS: NITROGLYCERIN TOP SCH ×4 (03:29→20:56)
[2019-01-29] MEDS: VALTREX PO SCH (08:21)
[2019-01-29] MEDS: CORDARONE PO SCH (08:21)
[2019-01-29] MEDS: NEXIUM IV SCH (08:21)
[2019-01-29] MEDS: COREG PO SCH ×2 (08:21→21:01)
[2019-01-29] MEDS: NEURONTIN PO SCH (08:21)
[2019-01-29] MEDS: ALDACTONE PO SCH ×2 (08:21→20:48)
[2019-01-29] MEDS: CARAFATE PO SCH ×3 (08:21→20:48)
[2019-01-29] MEDS: CYMBALTA PO SCH (08:21)
[2019-01-29] MEDS: SODIUM CHLORIDE 0.9% INJ SCH (08:21)
[2019-01-29] MEDS: PERICOLACE PO SCH ×2 (08:21→20:48)
[2019-01-29] MEDS: ASPIRIN PO SCH (08:21)
[2019-01-29] MEDS: MIRALAX PO SCH ×2 (08:22→20:47)
[2019-01-29] MEDS: KLOR-CON PO SCH (08:26)
[2019-01-29] MEDS: ERYTHROCIN PO SCH (08:27)
[2019-01-29] MEDS: LIPITOR PO SCH (20:47)
--- NOTE | 2019-01-29 21:32 | PROGRESS NOTE ---
DATE: 01/29/2019 SUBJECTIVE: The patient is decreasing nausea, vomiting. She is off the CPAP machine and decreased nausea in the morning. REVIEW OF SYSTEMS: None reported. PHYSICAL EXAMINATION: Temperature is 98 degrees. Vitals are stable. PICC line on the left side.Chest: Clear. Heart: Sounds are regular. Abdomen: Belly is soft, nontender. ASSESSMENT AND PLAN: 1. Gastroparesis, multifactorial with underlying diabetes and possible aerophagia from the CPAP. We will try again today, if she has symptoms of nausea in the morning, consider going to Dr. Rutledge in [facility]. 2. Continue present treatment. If she is stable, then we will discharge in the morning. LEVEL OF DOCUMENTATION: 15 minutes. cc: Bryon Rodrigues MD
[2019-01-30] MEDS: NITROGLYCERIN TOP SCH ×2 (03:34→08:23)
[2019-01-30] MEDS: ZOFRAN IV PRN (07:21)
[2019-01-30] MEDS: MYLICON PO PRN (07:21)
[2019-01-30 07:50] VITALS: BP 131/66
[2019-01-30] MEDS: CYMBALTA PO SCH (08:21)
[2019-01-30] MEDS: ALDACTONE PO SCH (08:21)
[2019-01-30] MEDS: KLOR-CON PO SCH (08:21)
[2019-01-30] MEDS: NEXIUM IV SCH (08:21)
[2019-01-30] MEDS: ASPIRIN PO SCH (08:21)
[2019-01-30] MEDS: CARAFATE PO SCH (08:21)
[2019-01-30] MEDS: CORDARONE PO SCH (08:21)
[2019-01-30] MEDS: PERICOLACE PO SCH (08:21)
[2019-01-30] MEDS: VALTREX PO SCH (08:21)
[2019-01-30] MEDS: MIRALAX PO SCH (08:22)
[2019-01-30] MEDS: COREG PO SCH (08:22)
[2019-01-30] MEDS: ERYTHROCIN PO SCH (08:22)
[2019-01-30] MEDS: NEURONTIN PO SCH (08:22)
== END 2019-01-30 10:17 | disposition home or self-care (01) | DRG 74 ==
LOC: ED 14:30 → 3N 19:44 → 2N 20:22
PROVIDERS: ADMIT Internal Medicine; ATTEND Internal Medicine

== ENCOUNTER 2019-02-12 09:59 | Inpatient (IN) ==
[2019-02-12] MEDS ORDERED: ZOFRAN IV ONE (10:16)
[2019-02-12] MEDS ORDERED: NS 1,000 ML IV ONE ×2 (10:16→12:39)
[2019-02-12] MEDS ORDERED: DILAUDID IV ONE (10:39)
--- NOTE | 2019-02-12 10:53 | EKG Report ---
Test Performed on : 02/12/2019 10:42:48 AM Test Reason : chest pain, vomiting Blood Pressure : / mmHG Vent. Rate : 068 BPM Atrial Rate : 068 BPM P-R Int : 184 ms QRS Dur : 122 ms QT Int : 486 ms P-R-T Axes : 044 048 094 degrees QTc Int : 516 ms Normal sinus rhythm. with sinus arrhythmia. Cannot rule out Anterior infarct , age undetermined Abnormal ECG When compared with ECG of 25-JAN-2019 18:36, (Unconfirmed) No significant change was found Unconfirmed Result
[2019-02-12 10:57] LABS: AGAP 16; ALB/GLOB RATIO 1.7; ALBUMIN 4.8 g/dL (3.5-5.0); ALKALINE PHOSPHATASE 57 U/L (32-104); AMYLASE 46 U/L (20-200); BUN 8 mg/dL (8-22); CALCIUM 8.9 mg/dL (8.8-10.2); CHLORIDE 101 mmol/L (98-107); CK PROFILE 159 U/L (24-173); COSMO 278; CREATININE 0.8 mg/dL (0.5-0.9); ESTIMATED GFR > 60; GLUCOSE 207 mg/dL (70-104); GOT 14 U/L (10-30); GPT 10 U/L (10-36); LIPASE 10 U/L (13-60); POTASSIUM 3.9 mmol/L (3.5-5.1); SODIUM 137 mmol/L (136-145); TCO2 20 mmol/L (25-35); TOTAL BILIRUBIN 0.46 mg/dL (0.20-1.00); TOTAL PROTEIN 7.6 g/dL (6.3-8.3)
[2019-02-12 11:39] LABS: BASO# 0.07 X1000 (0.0-0.2); BASO% 0.7 % (0.0-0.8); EOS# 0.26 X1000 (0.0-0.7); EOS% 2.5 % (0.0-10.0); HEMATOCRIT 36.1 % (37.0-47.0); HEMOGLOBIN 10.8 g/dL (12.0-16.0); LYMPH# 2.04 X1000 (1.2-3.4); MCH 21.8 PG (27-31); MCHC 29.9 g/dL (33-37); MCV 72.8 FL (81-99); MONO% 4.9 % (1.7-9.3); MPV 10.8 FL (7.4-10.4); NEUT# 7.34 X1000 (1.4-6.5); NEUT% 71.9 % (42.2-75.2); PLT 457 X1000 (130-400); RBC 4.96 XMIL (4.2-5.4); RDW 18.7 % (11.5-14.5); WBC 10.21 X1000 (4.8-10.8)
[2019-02-12 11:45] LABS: URINE SOURCE CLEAN CATCH
[2019-02-12 11:50] LABS: BILIRUBIN URINE NEGATIVE (NEGATIVE); BLOOD URINE NEGATIVE (NEGATIVE); COLOR STRAW; GLUCOSE URINE 300 mg/dL (NEGATIVE); KETONE URINE 20 mg/dL (NEGATIVE); LEUKOCYTES URINE NEGATIVE (NEGATIVE); NITRITE URINE NEGATIVE (NEGATIVE); PROTEIN URINE TRACE mg/dL (NEGATIVE); SP GRAVITY URINE 1.012; TURBIDITY URINE CLEAR (CLEAR); UROBILINOGEN URINE NORMAL (NORMAL)
[2019-02-12 11:51] LABS: UR EPITHELIAL CELLS <10 /HPF (<10); URINE BACTERIA NEGATIVE /HPF; URINE RBC <10 /HPF (<10); URINE WBC <10 /HPF (<10)
[2019-02-12] MEDS ORDERED: PHENERGAN IV ONE (12:36)
[2019-02-12] MEDS ORDERED: SODIUM CHLORIDE 0.9% INJ ONE (12:36)
[2019-02-12] MEDS ORDERED: MORPHINE IV PRN (12:39)
[2019-02-12] MEDS ORDERED: ZOFRAN IV PRN (12:39)
[2019-02-12] MEDS ORDERED: CATAPRES PO ONE ×3 (12:42→15:30)
--- NOTE | 2019-02-12 13:16 | PROVIDER DOCUMENTATION ---
This chart was entered by Noemi Clement Scribe, acting as scribe for Mary Stewart MD. HPI-Abdominal Pain/GI Problem - General Chief Complaint: Nausea/Vomiting Stated Complaint: ABD PAIN,VOMITING Time Seen by Provider: 02/12/19 10:12 Source: patient Allergies/Adverse Reactions: Patient Allergies Allergy/AdvReac Type Severity Reaction Status Date / Time metoclopramide HCl * Allergy Severe ANAPHYLAXIS Verified 01/25/19 14:50 [From Reglan] Penicillins Allergy Intermediate RASH Verified 01/25/19 14:50 erythromycin base Allergy RASH Verified 01/25/19 14:50 Home Medications: Home Medication List Medication Instructions Recorded Confirmed Last Taken Type Aspirin 325 mg PO DAILY 11/25/17 02/12/19 08/27/18 08:00 History Atorvastatin Calcium [Lipitor] 1 tab PO HS 11/25/17 02/12/19 08/26/18 20:00 History Carvedilol 25 mg PO BID 11/25/17 02/12/19 08/27/18 08:00 History Isosorbide Mononitrate E.r. [Imdur] 60 mg PO DAILY 11/25/17 02/12/19 08/27/18 08:00 History Pantoprazole Sodium [Protonix] 40 mg PO DAILY 11/25/17 02/12/19 08/27/18 08:00 History Spironolactone 1 tab PO BID 11/25/17 02/12/19 08/27/18 08:00 History Subcutaneous Insulin Pump [Insulin 1 each MC DIRECTED 11/25/17 02/12/19 08/28/18 12:00 History Pump] Duloxetine [Cymbalta] 60 mg PO DAILY capsule 11/29/17 02/12/19 08/27/18 08:00 Rx Polyethylene Glycol 3350 [Miralax] 17 gm PO BID 02/01/18 02/12/19 08/27/18 08:00 History Sennosides/Docusate Sodium 1 each PO BID 02/01/18 02/12/19 08/27/18 08:00 History [Senna-S Laxative Tablet] Ondansetron Odt [Zofran Odt] 4 mg PO Q6H PRN PRN #30 tab 04/30/18 02/12/19 08/27/18 12:00 Rx Alprazolam 0.5 mg PO BID 08/28/18 02/12/19 08/26/18 20:00 History Potassium Chloride E.r. [Klor-Con] 10 meq PO DAILY #30 tab 09/01/18 02/12/19 Unknown Rx Amiodarone [Cordarone] 200 mg PO DAILY 01/22/19 02/12/19 Unknown History Erythromycin Stearate [Erythrocin] 250 mg PO DAILY 01/22/19 02/12/19 Unknown His tory Gabapentin 300 mg PO DAILY 01/22/19 02/12/19 Unknown History Sucralfate [Carafate] 1 gm PO TID 01/23/19 02/12/19 Unknown History - History of Present Illness-ABD Nature of Presenting Problems: Patient is a 48 year old female who presents with generalized abdominal pain. States nausea and vomiting with abdominal pain. Reports symptoms started at 0200 this morning. History of gastroparesis. Abdominal Pain Onset Location: reports: generalized abdomen Pain Radiation: reports: no radiation Quality of Pain: reports: cramping Severity in ED: reports: mild Onset/Duration: reports: this morning (0200) Timing: reports: still present Activities at Onset: reports: light activity Associated Symptoms: reports: nausea, vomiting Bruising or Bleeding Gums?: No Similar Symptoms Previously?: Yes Recently seen or treated by another doctor?: Yes Review of Systems - Adult - REVIEW OF SYSTEMS - ADULT Constitutional: reports: no symptoms reported Eyes: reports: no symptoms reported Ears, Nose, Mouth & Throat: reports: no symptoms reported Cardiovascular: reports: no symptoms reported Respiratory: reports: no symptoms reported Gastrointestinal: reports: see HPI, abdominal pain (generalized), nausea, vomiting. denies: diarrhea Genitourinary: reports: no symptoms reported Musculoskeletal: reports: no symptoms reported Integumentary: reports: no symptoms reported Neurological: reports: no symptoms reported Psychiatric: reports: no symptoms reported Endocrine: reports: no symptoms reported Hematologic/Lymphatic: reports: no symptoms reported Allergic/Immunologic: reports: no symptoms reported All Other Systems: Reviewed and Negative Past History - Adult - PAST MEDICAL HISTORY-ADULT Review of Records: reports: Old Records Reviewed, Nursing Assessment Review, Medications Reviewed, Social history reviewed & non-contributory. Major Childhood Illnesses: reports: denies history Cardiovascular: reports: CAD, HTN, hyperlipidemia, NE, pacemaker Respiratory: reports: sleep apnea Gastrointestinal: reports: other Obstetrical/Gynecological: reports: uterine/ovarian cancer Genitourinary: reports: denies history Musculoskeletal: reports: denies history Neurological: reports: denies history Psychiatric: reports: depression Endocrine/Immune: reports: Diabetes Other Conditions: reports: denies history - PRIOR SURGERIES/PROCEDURES Surgical/Procedure History: reports: CABG, cholecystectomy, pacemaker, BTL, C- section, tonsillectomy, other - IMMUNIZATION STATUS Childhood Immunizations: See Nurse Assessment Flu Vaccine: See Nurse Assessment - FAMILY HISTORY Family History: reviewed, not pertinent - SOCIAL HISTORY Smoking: cigarettes (former) Substance Use: marijuana Physical Exam-General - PHYSICAL EXAM-ADULT Initial Vital Signs Reviewed: Yes - CONSTITUTIONAL General Appearance: alert, mild distress. negative: lethargic - HEAD, EARS, NOSE, MOUTH & THROAT HENMT: normocephalic/atraumatic, moist mucous membranes. negative: angioedema - RESPIRATORY Respiratory: chest non-tender, lungs clear, normal breath sounds. negative: crackles, stridor - CARDIOVASCULAR Cardiovascular: normal peripheral pulses, regular rate, rhythm. negative: tachycardia - GASTROINTESTINAL (ABDOMEN) Abdominal Exam: normal bowel sounds, non tender, soft. negative: guarding, rebound - MUSCULOSKELETAL Extremity: other (left BKA). negative: deformity, erythema - SKIN Integumentary: normal color, normal turgor, warm/dry. negative: diaphoresis, ecchymosis, jaundice - NEUROLOGIC Neurologic: grossly normal. negative: aphasia, facial droop - PSYCHIATRIC Psych/Mental Status: normal mood/affect, oriented x 3. negative: anxious Progress - PLAN OF CARE/RESULTS Progress/Plan/Lab Results: Vital Signs - 8 hr 02/12/19 10:01 Temperature 98.0 F Pulse Rate 81 Respiratory Rate 26 H Blood Pressure 210/98 O2 Sat by Pulse Oximetry 100 Laboratory Results - last 24 hr 02/12/19 10:10 POC Glucose 188 H D Orders Category Date Time Status Saline Loc DIRECTED Care 02/12/19 10:15 Active NPO Diet 02/12/19 10:15 Active AMYLASE [CHEM] Stat Lab 02/12/19 10:15 Uncollected CBC WITH ELECTRONIC DIFF [HEME] Stat Lab 02/12/19 10:15 Uncollected CK PROFILE [SP CHEM] Stat Lab 02/12/19 10:15 Uncollected COMPREHENSIVE METABOLIC PANEL [CHEM] Stat Lab 02/12/19 10:15 Uncollected LIPASE [CHEM] Stat Lab 02/12/19 10:15 Uncollected TROPONIN T Stat Lab 02/12/19 10:15 Uncollected URINALYSIS W/POSS RFLX CULT [URINALYSIS] Stat Lab 02/12/19 10:15 Uncollected 0.9% Sodium Chloride Inj [Ns] 1,000 ml Med 02/12/19 10:16 Active IV 999 mls/hr Ondansetron [Zofran] Med 02/12/19 10:16 Discontinued 4 mg IV NOW ONE EKG [EKG] Stat Ther 02/12/19 10:15 Ordered Result Diagrams: 02/12/19 10:26 02/12/19 10:26 - EKG 1 Time of EKG reading by physician:: 10:42 EKG Read and Signed by:: Mary Setwart EKG Interpretation (*Must complete 3 of following elements*): Abnormal Rate: 68 Rhythm: normal sinus rhythm with sinus arrhythmia [place]: normal [place] Interval: normal Comments: cannot rule out anterior infarct, age undetermined - CONSULTS/PCP/HOSPITALIST Notification #1 *Consult/PCP/Hospitalist*: Dr. Rodrigues Time Discussed: 12:38 Reason/Comments: Dr. Stewart consulted with Dr. Rodrigues about patient. Consult Disposition: Admit Departure - Departure Date of Disposition Decision: 02/12/19 Time of Disposition Decision: 12:40 DIAGNOSIS: Gastroparesis Disposition: ADMITTED INPATIENT 09 Certified Medical Emergency: Emergent Condition: Stable Additional Instructions: ED Follow Up Instructions: You have been treated by a care provider in the Emergency Department. These instructions are being provided to you so you can have an understanding of how to care for yourself upon discharge. Upon discharge from the Emergency Department, you are responsible for making arrangements for follow-up care by a physician of your choice. Take all prescribed medications as directed. Return to the Emergency Department immediately for any new or worsening symptoms. You may call the Physician Referral phone number at [phone] to obtain a list of Physicians who are taking new patients. Referrals and Follow-Ups: [facility] [Outside] Catie Rodrigues MD [Primary Care Provider] - - Critical Care Note This patient required my direct & personal management of CC.: No Attestation - Physician/ JANNET Attestation The physician spent face to face time with patient:: Yes Advanced Practice Provider documentation review:: Supervising physician onsite and consulted in the evaluation and care of this patient. The physician did have a face to face encounter with the patient. This chart was documented by the indicated scribe, (Noemi Clement Scribe) and accurately reflects the services I performed and decisions made by me, Mary Stewart MD, as attested by the provider's signature.
[2019-02-12] MEDS ORDERED: SODIUM CHLORIDE 0.9% INJ SCH (19:15)
[2019-02-12] MEDS: PHENERGAN IV PRN ×2 (19:29→23:52)
[2019-02-12] MEDS: LOVENOX SUBQ SCH (20:19)
[2019-02-12] MEDS: APRESOLINE IV PRN (20:19)
[2019-02-12] MEDS: PROTONIX IV SCH (20:19)
--- NOTE | 2019-02-12 21:27 | HISTORY AND PHYSICAL ---
CHIEF COMPLAINT: Nausea and vomiting. HISTORY OF PRESENT ILLNESS: She is a 48-year-old white female, complicated historian, admitted third time during this month with persistent nausea, vomiting, worsening due to diabetic gastroparesis. In fact, she came to my office last week with left hip pain, and I stopped the anticholinergic drugs. Patient started on Zanaflex. Subsequently, persistent nausea, vomiting. She still has a PICC line. She was resuscitated in the ER. Not able to improve, and as a result, hospitalized for impending dehydration due to diabetic gastroparesis. We do not have any significant other options. PAST MEDICAL HISTORY: 1. Coronary artery disease, status post bypass. 2. Complicated type 2 diabetes. 3. Gastroparesis. 4. Peripheral neuropathy. 5. Hyperlipidemia. 6. Hypertension. 7. Sleep apnea. 8. Peripheral arterial disease. 9. History of right cuboid fracture. 10. History of marijuana use. 11. Obstructive sleep apnea, on CPAP machine. PAST SURGICAL HISTORY: 1. AICD. 2. Tonsillectomy. 3. Bypass surgery. 4. Cholecystectomy. 5. Uvulopalatopharyngoplasty. 6. Tubal ligation. 7. Right and left femoral bypass surgery. 8. Left 2nd toe amputation. 9. Revision of left femoral-popliteal bypass, cadaveric graft. 10. Left BKA. 11. Right great toe amputation. ALLERGIES: Reported to Reglan and penicillin. SOCIAL HISTORY: . One child lives in [place]. No smoking. No alcohol. Disabled. FAMILY HISTORY: Father at the age of 36 in a car wreck. Mom is alive with diabetes, hypertension, and stroke. HEALTH MAINTENANCE: Flu vaccine 2019. Pneumococcal vaccine on 02/09/2014. MEDICATIONS: 1. Aspirin 325 daily. 2. Coreg 25 p.o. b.i.d. 3. Protonix 40 daily. 4. Aldactone 25 one p.o. b.i.d. 5. Lipitor 80 daily. 6. Isosorbide 60 daily. 7. Subcutaneous insulin pump. 8. Duloxetine 60 daily. 9. Senna 1 tablet p.o. b.i.d. 10. MiraLAX 17 g p.o. b.i.d. 11. Zofran ODT q.6. 12. Xanax 0.5 p.o. b.i.d. 13. Potassium 10 mEq daily. 14. Erythrocin 250 mg daily. 15. Gabapentin 300 daily. 16. Cordarone 200 daily. 17. Carafate 1 g t.i.d. REVIEW OF SYSTEMS: The patient has persistent nausea, abdominal pain, dry heaving. Mother is holding the patient's head and she was laying close on the side of the bed. PHYSICAL EXAMINATION: VITAL SIGNS: Temperature is 97 degrees, blood pressure is running high, 98% room air, 2 L nasal cannula. 5 feet 11 inches; 267 pounds. HEENT: Dry heaving. Atraumatic, normocephalic. Pupils equal, reactive to light. NECK: Supple. No lymphadenopathy. CHEST: Poor air entry. Distant heart sounds. Left arm PICC line was placed. ABDOMEN: Belly is soft, obese, nontender. Ventral hernia noted. EXTREMITIES: Left leg below-knee amputation noted. NEUROLOGIC: No obvious neurological deficits. INVESTIGATIONS: CBC: White cell count 10.2, hematocrit 36, platelets 457,000. SMA7 is normal. Glucose 207. LFTs were normal. CK 159. Troponin was normal. Amylase, lipase were normal. Urinalysis positive for ketones. ASSESSMENT: A 48-year-old white female, with above problems, admitted to the hospital with impending dehydration with diabetic ketoacidosis, elevated blood pressure due to gastroparesis. PLAN: 1. Intravenous fluids. 2. Continue peripherally inserted central catheter line. 3. Phenergan and Zofran, alternate, along with hydromorphone for pain. 4. Continue intravenous Protonix and Carafate. 5. Hydralazine for p.r.n. blood pressure more than 160. 6. Deep venous thrombosis and gastrointestinal prophylaxis as per order sheet. 7. We will slowly reconcile home medications and will follow up. cc: Bryon Rodrigues MD
[2019-02-12] MEDS: DILAUDID IV PRN (21:30)
[2019-02-12] MEDS: HUMALOG SUBQ SCH (21:34)
[2019-02-13] MEDS: PHENERGAN IV PRN ×3 (04:03→20:54)
[2019-02-13] MEDS: DILAUDID IV PRN ×3 (04:04→20:53)
[2019-02-13] MEDS: HUMALOG SUBQ SCH ×3 (06:37→18:50)
--- NOTE | 2019-02-13 08:42 | PROGRESS NOTE ---
DATE: 02/13/2019 SUBJECTIVE: The patient is much improved since last night. Decrease in nausea and vomiting. She thinks the Dilaudid and Phenergan are helping. She still has a PICC line. Mom was at bedside. PHYSICAL EXAMINATION: Temperature is 97 degrees, pulse 97, blood pressure 140/60. HEENT Examination: Within normal limits. Neck: Supple. Chest: Clear. Heart sounds are regular. Belly is soft, nontender. Extremities: Left BKA noted. INVESTIGATIONS: None reported. ASSESSMENT: 1. Diabetic gastroparesis. 2. Complicated diabetes. 3. Peripheral arterial disease. 4. Ischemic heart disease, status post automatic implantable cardioverter defibrillator. 5. Complicated medical problems. PLAN OF CARE: 1. Continue IV fluids. 2. Deep venous thrombosis and gastrointestinal prophylaxis. 3. Dilaudid for pain. 4. Phenergan for nausea. 5. We will start with a full liquid diet and advance as tolerated. 6. Slowly reconcile home medicines for diabetes, off insulin pump, continue on sliding scale with insulin coverage for the next 24 hours. 7. Sleep apnea, off CPAP machine at this time. LEVEL OF DOCUMENTATION: 25 minutes. cc: Bryon Rodrigues MD
[2019-02-13] MEDS: SODIUM CHLORIDE 0.9% INJ PRN (20:53)
[2019-02-13] MEDS: LOVENOX SUBQ SCH (20:53)
[2019-02-13] MEDS: PROTONIX IV SCH (20:53)
[2019-02-14] MEDS: DILAUDID IV PRN ×4 (00:07→21:15)
[2019-02-14] MEDS: HUMALOG SUBQ SCH ×5 (00:08→21:00)
[2019-02-14] MEDS: PHENERGAN IV PRN ×4 (02:29→21:15)
[2019-02-14] MEDS ORDERED: ZOFRAN ODT PO PRN (08:06)
[2019-02-14] MEDS ORDERED: PATIENT'S OWN MED SUBQ SCH (08:15)
[2019-02-14] MEDS: MIRALAX PO SCH ×2 (10:06→21:20)
[2019-02-14] MEDS: ERYTHROCIN PO SCH (10:06)
[2019-02-14] MEDS: KLOR-CON PO SCH (10:07)
[2019-02-14] MEDS: ALDACTONE PO SCH ×2 (10:07→21:19)
[2019-02-14] MEDS: CYMBALTA PO SCH (10:07)
[2019-02-14] MEDS: XANAX PO SCH ×2 (10:07→21:28)
[2019-02-14] MEDS: CORDARONE PO SCH (10:08)
[2019-02-14] MEDS: IMDUR PO SCH (10:08)
[2019-02-14] MEDS: PROTONIX PO SCH (10:08)
[2019-02-14] MEDS: NEURONTIN PO SCH (10:08)
[2019-02-14] MEDS: PERICOLACE PO SCH ×2 (10:08→21:20)
[2019-02-14] MEDS: ASPIRIN PO SCH (10:08)
[2019-02-14] MEDS: COREG PO SCH ×2 (10:09→21:19)
[2019-02-14] MEDS: CARAFATE PO SCH ×2 (10:09→12:47)
[2019-02-14] MEDS: SODIUM CHLORIDE 0.9% INJ PRN (13:45)
--- NOTE | 2019-02-14 19:18 | PROGRESS NOTE ---
DATE: 02/14/2019 SUBJECTIVE: The patient is doing much better. This morning she was walking to the bathroom. She wants advance the diet and this afternoon she has persistent nausea and vomiting. Blood pressure was running high. OBJECTIVE: Temperature is 98 degrees, pulse 90. Now she has dry mucous membranes. Chest is clear. Heart sounds are regular. Belly is soft, nontender. INVESTIGATIONS: None reported. ASSESSMENT: 1. Persistent diabetic gastroparesis. 2. Chronic marijuana abuse. 3. Impending dehydration. 4. Peripherally inserted central catheter line on the left side. PLAN: We will hold back all the medications. Restart IV fluids, IV Zofran, Phenergan, Dilaudid as needed and hydralazine as needed for blood pressure control. Off insulin pump. We will use sliding scale with insulin coverage. We will hold off the discharge, and if no better consider GI consult spa receptionist and the patient is going to stay here until this weekend. Discussed the plan of care with the family. Level of documentation 25 minutes. cc: Bryon Rodrigues MD
[2019-02-14] MEDS: NS 1,000 ML IV SCH (19:28)
[2019-02-14] MEDS: LOVENOX SUBQ SCH (21:18)
[2019-02-14] MEDS: LIPITOR PO SCH (21:20)
[2019-02-15] MEDS: PHENERGAN IV PRN ×4 (00:56→17:07)
[2019-02-15] MEDS: DILAUDID IV PRN ×4 (00:56→17:07)
[2019-02-15] MEDS: HUMALOG SUBQ SCH ×4 (06:06→21:13)
[2019-02-15] MEDS: NS 1,000 ML IV SCH ×3 (06:07→18:50)
[2019-02-15] MEDS: ASPIRIN PO SCH (10:11)
[2019-02-15] MEDS: KLOR-CON PO SCH (10:11)
[2019-02-15] MEDS: CARAFATE PO SCH ×4 (10:12→17:09)
[2019-02-15] MEDS: PERICOLACE PO SCH ×2 (10:12→21:13)
[2019-02-15] MEDS: COREG PO SCH ×2 (10:12→21:48)
[2019-02-15] MEDS: CYMBALTA PO SCH (10:12)
[2019-02-15] MEDS: PROTONIX PO SCH (10:12)
[2019-02-15] MEDS: XANAX PO SCH ×2 (10:12→21:13)
[2019-02-15] MEDS: CORDARONE PO SCH (10:12)
[2019-02-15] MEDS: MIRALAX PO SCH ×2 (10:13→21:13)
[2019-02-15] MEDS: ALDACTONE PO SCH ×2 (10:13→21:13)
[2019-02-15] MEDS: ERYTHROCIN PO SCH (10:13)
[2019-02-15] MEDS: NEURONTIN PO SCH (10:13)
[2019-02-15] MEDS: IMDUR PO SCH (10:13)
[2019-02-15] MEDS: LOVENOX SUBQ SCH (21:13)
[2019-02-15] MEDS: LIPITOR PO SCH (21:13)
[2019-02-16] MEDS: PHENERGAN IV PRN ×4 (02:53→21:48)
[2019-02-16] MEDS: DILAUDID IV PRN ×3 (02:54→15:10)
[2019-02-16] MEDS: APRESOLINE IV PRN (03:09)
[2019-02-16] MEDS: HUMALOG SUBQ SCH ×4 (06:39→23:56)
[2019-02-16] MEDS: ZOFRAN IV PRN (06:50)
[2019-02-16] MEDS: ASPIRIN PO SCH (09:55)
[2019-02-16] MEDS: CYMBALTA PO SCH (09:55)
[2019-02-16] MEDS: PERICOLACE PO SCH ×2 (09:56→21:48)
[2019-02-16] MEDS: CARAFATE PO SCH ×3 (09:56→17:10)
[2019-02-16] MEDS: COREG PO SCH ×2 (09:56→21:53)
[2019-02-16] MEDS: ALDACTONE PO SCH ×2 (09:56→21:49)
[2019-02-16] MEDS: MIRALAX PO SCH ×2 (09:56→21:49)
[2019-02-16] MEDS: KLOR-CON PO SCH (09:56)
[2019-02-16] MEDS: PROTONIX PO SCH (09:56)
[2019-02-16] MEDS: NEURONTIN PO SCH (09:56)
[2019-02-16] MEDS: IMDUR PO SCH (09:56)
[2019-02-16] MEDS: XANAX PO SCH ×2 (09:56→21:48)
[2019-02-16] MEDS: CORDARONE PO SCH (09:56)
[2019-02-16] MEDS: ERYTHROCIN PO SCH (09:56)
[2019-02-16] MEDS: NS 1,000 ML IV SCH ×2 (15:11→20:56)
[2019-02-16] MEDS: LIPITOR PO SCH (21:49)
[2019-02-16] MEDS: LOVENOX SUBQ SCH (21:53)
[2019-02-17] MEDS: ZOFRAN IV PRN (05:07)
--- NOTE | 2019-02-17 06:18 | PROGRESS NOTE ---
DATE: 02/15/2019 Ms. Hylton in room 114 A. Ms. Hylton has diabetes. She has gastroparesis related to diabetes. At present, she says she is less nauseous and she tried to keep some yogurt down with breakfast. Blood sugar was 231. Her vital signs are stable. She says she has been on her insulin pump, which was taken off and she was placed on the sliding scale. However, the blood sugars are fluctuating and she wants to be on her insulin pump again which she can handle it on her own. I told her to put the pump back on, hook it back on. -0 cc: MD Bryon Chávez MD
--- NOTE | 2019-02-17 06:20 | PROGRESS NOTE ---
DATE: 02/16/2019 LOCATION: Room 114. SUBJECTIVE: Ms. Hylton is doing better. Last blood sugar was 109. Vital signs are stable. Blood pressure is slightly elevated to 162/85. We will try to give her Glucerna as she is not eating that well. Will continue the rest of the therapy. -4 cc: MD Bryon Chávez MD
[2019-02-17] MEDS: HUMALOG SUBQ SCH ×4 (06:49→21:35)
[2019-02-17] MEDS: PROTONIX PO SCH (09:48)
[2019-02-17] MEDS: PERICOLACE PO SCH ×2 (09:48→21:01)
[2019-02-17] MEDS: ALDACTONE PO SCH ×2 (09:48→21:02)
[2019-02-17] MEDS: COREG PO SCH ×2 (09:48→21:02)
[2019-02-17] MEDS: CORDARONE PO SCH (09:48)
[2019-02-17] MEDS: IMDUR PO SCH (09:48)
[2019-02-17] MEDS: CARAFATE PO SCH ×3 (09:49→16:33)
[2019-02-17] MEDS: XANAX PO SCH ×2 (09:49→21:03)
[2019-02-17] MEDS: KLOR-CON PO SCH (09:49)
[2019-02-17] MEDS: ASPIRIN PO SCH (09:49)
[2019-02-17] MEDS: CYMBALTA PO SCH (09:49)
[2019-02-17] MEDS: MIRALAX PO SCH ×2 (09:49→21:02)
[2019-02-17] MEDS: NEURONTIN PO SCH (09:49)
[2019-02-17] MEDS: ERYTHROCIN PO SCH (09:49)
--- NOTE | 2019-02-17 14:26 | GASTROENTEROLOGY CONSULTATION ---
DATE: 02/17/2019 REASON FOR CONSULT: Gastroparesis. HISTORY OF PRESENT ILLNESS: Ms Luo is a 48-year-old female who is here in the hospital with complaints of nausea, vomiting, worsening diabetic gastroparesis. She has a past medical history of coronary artery disease s/p bypass, type 2 diabetes, peripheral neuropathy, hyperlipidemia, hypertension, sleep apnea, peripheral artery disease, history of marijuana use, and obstructive sleep apnea. She has left [id number] amputation. The patient had persistent nausea, vomiting, and dehydration resulting from diabetic gastroparesis. She has denied any nausea or vomiting at present and mentioned that she was able to tolerate her breakfast well this morning. PAST MEDICAL HISTORY: Coronary artery disease status post bypass, type 2 diabetes, gastroparesis, peripheral neuropathy, hyperlipidemia, hypertension, peripheral artery disease, history of marijuana use, obstructive sleep apnea on CPAP. PAST SURGICAL HISTORY: Tonsillectomy, bypass surgery, cholecystectomy, tubal ligation, left femoral bypass surgery, left 2nd toe amputation, reversion of left femoral- popliteal bypass cadaveric graft, left BKA, right great toe amputation, and Uvulopalatopharyngoplasty ALLERGIES: Reglan, penicillin, erythromycin base. SOCIAL HISTORY: She is , has 1 child. Denied smoking and alcohol. She is disabled. and has marijuana. FAMILY HISTORY: Mom has diabetes, hypertension, stroke. MEDICATIONS: Aspirin 325 mg p.o. daily, Coreg 25 mg twice a day, Protonix 40 mg daily, Aldactone 25 mg twice a day. Lipitor 80 mg at bedtime, Imdur 60 mg daily, insulin pump on sliding scale, Cymbalta 60 mg daily, sennoside/docusate sodium 1 tablet twice a day, MiraLAX 17 g twice a day. Zofran 4 mg every 6 hours as needed, Xanax 0.5 mg twice a day, potassium chloride 10 mEq daily, Erythrocin 250 mg daily, Neurontin 300 mg daily, amiodarone 200 mg daily, and Carafate 1 g 3 times a day. REVIEW OF SYSTEMS: As per HPI. Otherwise, 12 point review of system is negative. PHYSICAL EXAMINATION: Vital Signs: 97.7 pulse is 80, respirations 19, blood pressure 176/89, oxygen saturation 100% on 2 L nasal cannula. Her weight is 266 pounds. BMI is 37.2 kg/m2. General: She is alert, oriented x3. A good historian and in no acute distress. HEENT: Pale conjunctivae, no icterus. PERRL. Neck: Supple. Lungs: Clear to auscultation in the anterior schwartz. Cardiovascular: Regular rate and rhythm. Abdomen: Obese, soft, nontender. Active bowel sound in all 4 quadrants, insulin pump on the right mid abdomen. Extremities: Left below the knee amputation. Neurologic: Alert oriented x3. Nonfocal. Cranial nerves 2-12 grossly intact. LABS: WBC 10.1, RBC 4.96, hemoglobin 10.8, hematocrit 36.1, platelet count is 457,000. The patient has no chemistries for today. Her urinalysis on 01/23/1930 showed trace of protein, glucose, and ketones. IMPRESSION/PLAN: Nausea/Vomiting Gastroparesis Type II diabetes Constipation Dehydration Obesity S/P Left BKA CAD S/P bypass Obstructive sleep apnea on CPAP PAD Mild Anemia-continue to watch for now. PLAN: Patient will continue on Gastroparesis diet and take small frequent meals 4-6 times per day. The patient is currently on IV fluids 80 ml/hr for dehydration per PCP. She is receiving MiraLAX 17 g and Mimi-Colace 1 tablet for her constipation. She is on Protonix 40 mg daily for her GI prophylaxis. For her nausea and vomiting she is receiving Phenergan and Zofran as needed. Patient is on insulin pump and also on sliding scale for her diabetes. Patient's nausea and vomiting is under control, we will continue current treatment plan, and continue to monitor her CBC, BMP and follow the plan of care per PCP team. Encouraged to keep good control of diabetes. Encouraged to loose weight as her BMI is 37.2. This plan was discussed with Dr. Meneses. Thank you for your consult. Please call us for any further questions or concerns. Dictated by GISELE Castaneda for Michael Meneses MD cc: MD Bryon Walker M I have seen and examined the patient myself and I agree with the above plan of care. I have discussed the above plan of care with the patient and family at bedside and all questions were answered. Please call us with any further questions. JESD
[2019-02-17] MEDS: NS 1,000 ML IV SCH (16:28)
[2019-02-17] MEDS: LIPITOR PO SCH (21:01)
[2019-02-17] MEDS: LOVENOX SUBQ SCH (21:02)
--- NOTE | 2019-02-17 21:14 | PROGRESS NOTE ---
DATE: 02/17/2019 SUBJECT: The patient had good on Sunday sleeping on Sunday, not using CPAP machine. This morning she is nauseous, not able to eat breakfast. Mother was really concerned about it. If she continues to have problem, she might need alternate route for feeding with a jejunostomy tube. REVIEW OF SYSTEMS: Had a bowel movement. PHYSICAL EXAMINATION: Temperature is 98 degrees, pulse 89, blood pressure 137/65.HEENT: Within normal limits. Neck: Supple. No lymphadenopathy. Chest: Bilateral air entry. Heart: Sounds are regular. Belly: Soft, nontender . INVESTIGATIONS: None reported. ASSESSMENT AND PLAN: 1. Diabetic gastroparesis exacerbating with Dilaudid and cannabis. 2. Peripherally inserted central catheter line on the left side and consider Dr. Meneses consult and possible alternate to nourishment maybe jejunostomy tube and other options were discussed and at this time will treat symptomatically with IV fluids and Dilaudid and Phenergan and Zofran and nurses reported she is also having sleep apnea, encouraged to use a CPAP machine. We will do outpatient CPAP adjustments. LEVEL OF DOCUMENTATION: 25 minutes. cc: Bryon Rodrigues MD
[2019-02-18] MEDS: NS 1,000 ML IV SCH (04:45)
[2019-02-18] MEDS: HUMALOG SUBQ SCH ×3 (06:38→17:18)
[2019-02-18] MEDS: ALDACTONE PO SCH (08:37)
[2019-02-18] MEDS: ASPIRIN PO SCH (08:37)
[2019-02-18] MEDS: XANAX PO SCH (08:37)
[2019-02-18] MEDS: IMDUR PO SCH (08:37)
[2019-02-18] MEDS: PERICOLACE PO SCH (08:37)
[2019-02-18] MEDS: CYMBALTA PO SCH (08:37)
[2019-02-18] MEDS: CORDARONE PO SCH (08:37)
[2019-02-18] MEDS: PROTONIX PO SCH (08:37)
[2019-02-18] MEDS: COREG PO SCH (08:37)
[2019-02-18] MEDS: NEURONTIN PO SCH (08:37)
[2019-02-18] MEDS: KLOR-CON PO SCH (08:37)
[2019-02-18] MEDS: ERYTHROCIN PO SCH (08:38)
[2019-02-18] MEDS: MIRALAX PO SCH (08:38)
[2019-02-18 16:56] VITALS: BP 166/83
--- NOTE | 2019-02-18 17:59 | GASTROENTEROLOGY PROGRESS NOTE ---
DATE: 02/18/2019 SUBJECTIVE: Ms. Luo 48-year-old female resting in bed. Complained of being tired and feeling sleepy. Mother at the bedside. She denied any vomiting but she said she was having nausea, and had 4 bowel movements yesterday which were liquid in consistency. OBJECTIVE: Vital signs: Temperature 98 degrees, pulse 79, respirations 18, blood pressure 165/100, oxygen saturation 98% on room air. The patient uses CPAP in the night. Her weight is 266 pounds. BMI is 37.2 kg/m2. General: She is alert, oriented x3, and in no acute distress. HEENT: Pale conjunctivae. No icterus. PERRL. Neck supple. Lungs clear to auscultation in the anterior schwartz. Cardiovascular: Regular rate and rhythm. Abdomen is obese, soft, nontender, distended. Active bowel sounds heard in all 4 quadrants. Insulin pump on the right midabdomen. Extremities: Left [id number] amputation. Neurologic: Alert and oriented x3. LABORATORY DATA: The labs are from 02/12. WBC 10.2, RBC 4.96, hemoglobin 10.8, hematocrit 36.1, platelet count is 457,000. Her chemistries are from 02/12: Sodium 137, potassium 3.9, chloride 101, carbon dioxide 20, anion gap 16, BUN 8, creatinine 0.8, calcium 8.9, total bilirubin 0.46, AST 14, ALT 10, alkaline phosphatase 57, albumin 4.8, amylase 46, lipase 10. IMPRESSION: Gastroparesis. Type 2 diabetes. Constipation. Coronary artery disease, status post bypass. Mild anemia. Marijuana abuse PLAN: We will continue the patient on the gastroparesis diet, and she is advised to have small frequent meals 4-6 times a day. Patient is receiving IV fluids at 80 mL/h, Protonix 40 mg daily daily for her gastroparesis. Zofran 4 mg p.r.n. q.6 hours, Phenergan 12.5 mg IV q.4 hours as needed for nausea and vomiting She is on bowel regimen Mimi-Colace and MiraLAX. Her diabetes is managed through insulin pump and on sliding scale.The patient is having nausea but her vomiting is under control, and we will continue the current treatment plan. Continue to monitor her CBC, BMP and follow the plan of care per PCP. Encouraged patient to keep a good control on her diabetes, Discussed the risk of obesity, advised to lose weight and follow a healthy diet.The patient acknowledged understanding of the instructions. Patient mentioned that she would be going home with home health. This plan was discussed with Dr. Spain. Please call us for any further questions or concerns. Dictated by GISELE Castaneda for Hill Spain MD cc: Bryon Rodrigues MD Physician Attestation I have seen and examined the patient. I have discussed and reviewed the the note by Bharati JAQUEZ and agree with findings and plan as documented. In brief, Ms. Luo is a 48 year old woman with HTN, HLD, CAD s/p CABG, pacemaker/ICD, IDDM2 c/b peripheral neuropathy and gastroparesis, and marijuana abuse admitted with gastroparesis exacerbation now improved. Continue small frequent low fat meals. Advised patient to schedule zofran prior to each meal and take Phenergan as needed for breakthrough. Follow-up with Dr. Meneses upon discharge. MTDD
== END 2019-02-18 18:14 | disposition home health service (06) | DRG 74 ==
LOC: EDIPHOLD 09:59 → ED 09:59 → OBSVTOIN 15:41 → 1N 18:38
PROVIDERS: ADMIT Internal Medicine; ATTEND Internal Medicine